=== PATIENT | male | born 1970 | race Caucasian/White ===

== ENCOUNTER → 2017-02-28 | Outpatient (CLI) | payer OTHER ==
[~2017-02-28] MED LIST: BND25 PO; EFFSR150 PO; EFFSR75 PO; IBUP-103 PO
[2017-02-28 13:04] LABS: BLOOD UREA NITROGEN 14 mg/dl (7-18); BUN/CREATININE RATIO 14.6 (10-20); CALCIUM 8.9 mg/dl (8.5-10.1); CARBON DIOXIDE 26 mmol/L (21-32); CHLORIDE 107 mmol/L (98-107); CREATININE 0.97 mg/dl (0.60-1.40); GLUCOSE 152 mg/dl (70-99); POTASSIUM 4.2 mmol/L (3.5-5.1); SODIUM 139 mmol/L (136-145)
[2017-02-28 13:05] LABS: CHOLESTEROL 174 mg/dl (0-200); CHOLESTEROL/HDL RATIO 4.7; HDL CHOLESTEROL 37 mg/dl; LDL CHOLESTEROL CALCULATED 98 mg/dl; TRIGLYCERIDES 194 mg/dl (0-150); VERY LOW DENSITY LIPOPROT CALC 39 mg/dl
[2017-02-28 13:07] LABS: ESTIMATED AVERAGE GLUCOSE 148 mg/dl; HA1C FLAG Normal (Normal)
== END | disposition home or self-care (01) ==
LOC: C.LABPVFM 08:30
PROVIDERS: ATTEND Nurse Practitioner
DX: R73.01 Impaired fasting glucose (principal); I10 Essential (primary) hypertension; Z13.220 Encounter for screening for lipoid disorders; E55.9 Vitamin D deficiency, unspecified

== ENCOUNTER → 2017-03-02 | Outpatient (CLI) | payer OTHER ==
[2017-03-02 15:12] LABS: LYME DISEASE AB IGG NEG (NEG)
[2017-03-02 15:13] LABS: LYME DISEASE AB IGM NEG (NEG)
== END | disposition home or self-care (01) ==
LOC: C.LABPVFM 09:30
PROVIDERS: ATTEND Nurse Practitioner
DX: R53.83 Other fatigue (principal); M25.50 Pain in unspecified joint

== ENCOUNTER → 2017-08-29 | Outpatient (CLI) | payer OTHER ==
[2017-08-29 13:01] LABS: BLOOD UREA NITROGEN 14 mg/dl (7-18); CALCIUM 9.4 mg/dl (8.5-10.1); CARBON DIOXIDE 25 mmol/L (21-32); CHLORIDE 105 mmol/L (98-107); CREATININE 0.99 mg/dl (0.60-1.40); ESTIMATED AVERAGE GLUCOSE 160 mg/dl; GLUCOSE 175 mg/dl (70-99); HA1C FLAG Normal (Normal); POTASSIUM 4.2 mmol/L (3.5-5.1); SODIUM 137 mmol/L (136-145)
== END | disposition home or self-care (01) ==
LOC: C.LABPVFM 09:01
PROVIDERS: ATTEND Nurse Practitioner
DX: I10 Essential (primary) hypertension (principal); E11.9 Type 2 diabetes mellitus without complications

== ENCOUNTER → 2017-09-13 | Outpatient (CLI) | payer OTHER ==
--- NOTE | 2017-09-13 10:10 | DIAGNOSTIC IMAGING REPORT ---
LEFT INGUINAL ULTRASOUND CLINICAL HISTORY: K40.90 Inguinal [id number] COMPARISON STUDY: No previous studies for comparison. FINDINGS: There is a fat-containing partially reducible reducible left inguinal hernia. IMPRESSION: Fat-containing left inguinal hernia. Electronically signed by: Nasir Brooks M.D. 09/13/2017 10:08 AM Dictated Date/Time: 09/13/2017 10:07 AM
== END | disposition home or self-care (01) ==
LOC: C.ULTR 09:41
PROVIDERS: ATTEND Nurse Practitioner
DX: K40.90 Unilateral inguinal hernia, without obstruction or gangrene, not specified as recurrent (principal)

== ENCOUNTER 2021-10-11 19:27 | Observation (INO) ==
[2021-10-11] MEDS ORDERED: dilTIAZem HCl 5 MG/ML 5 ML VIAL IV STA ×2 (19:45→20:20)
[2021-10-11] MEDS ORDERED: SODIUM CHLORIDE 0.9% 1000ML 1,000 ML IV SCH (19:45)
--- NOTE | 2021-10-11 19:53 | Emergency Department Note ---
Impression & Plan Atrial fibrillation with rapid ventricular response, Heart palpitations ED Provider Note NAME: BHARATH COLEMAN AGE: 50 SEX: M : 1970 ARRIVES VIA: Walk-In INFORMANT: Patient, ED PROVIDER(S): Parker Carrillo DO CHIEF COMPLAINT: Palpitations HPI: The patient is a 50-year-old male who presented to emergency department for an evaluation palpitations. The patient states he did not feel well ever since yesterday. He states he has been fatigued. He started noticing intermittent episodes of palpitations over the last 24 hours. His significant other states his pulse rate was very low at one point and it was in the 40s. It would then go up into the 150s. The patient has been seen for palpitations before but never carried any specific diagnosis. The patient was noticing nausea but has had no vomiting or diarrhea. He denies having any chest pain but does have some difficulty breathing especially with exertion. He denies having any lower extremity swelling. He has no headaches. The patient states he does have a history of diabetes. He states he is been compliant with his usual outpatient medications. He was not seen by his primary care physician prior to coming to the emergency department. He came directly to the emergency department because of the great symptoms. ROS: See above HPI for pertinent positives & negatives. A total of 10 systems reviewed and were otherwise negative. PAST MEDICAL HISTORY: See Below PAST SURGICAL HISTORY: See Below FAMILY HISTORY: See Below SOCIAL HISTORY: See Below HOME MEDICATIONS: See Below ALLERGIES: See Below VITALS: See Below PHYSICAL EXAMINATION: GENERAL: Patient is awake alert in no acute distress patient is resting comfortably and showing no signs of anxiety EYES: The conjunctivae are clear. The pupils are round and reactive. EARS, NOSE, MOUTH AND THROAT: The nose is without any evidence of any deformity. NECK: The neck is nontender and supple. RESPIRATORY: Normal respiratory effort is noted there is no evidence of wheezing rhonchi or rales CARDIOVASCULAR: Tachycardic and irregular heart sounds were noted to auscultation. No definite murmur was noted. GASTROINTESTINAL: The abdomen is soft. Abdomen is nontender. MUSCULOSKELETAL/EXTREMITIES: There is no evidence of gross deformity full range of motion is noted in the hips and shoulders. SKIN: There is no obvious evidence of any rash. There are no petechiae, pallor or cyanosis noted. NEUROLOGIC: Patient is awake alert and oriented x3 MEDICAL DECISION MAKING: The patient is a 50-year-old male who presented to the emergency department for an evaluation of palpitations. The patient was found to have atrial fibrillation with RVR upon arrival. He was treated with IV fluids and IV Cardizem in the emergency department. He started having ectopy but then ultimately went into sinus rhythm. I discussed the patient's laboratory and radiographic studies with him. He does have significant risk factors for CVA such as hypertension and diabetes. His age would not warrant anticoagulation but his other predisposing factors might. For this reason I would recommend further inpatient work-up especially given that this is the first episode of atrial fibrillation this patient has had. I discussed this plan with the patient he was agreeable. I discussed this case with the on-call [facility]. They will evaluate the patient in the emergency department. Triage Nursing notes reviewed. Prior medical records reviewed Vital Signs: reviewed and remarkable for no significant abnormalities Differential diagnosis: Premature contractions, electrolyte abnormality, cardiac dysrhythmia, thyroid dysfunction, pulmonary embolism, infection, gastrointestinal, as well as other pathologies. ER treatment provided: See below Diagnostics interpreted by me: ECG: Narrow complex tachycardia 159 bpm. There was some irregularity noted to the underlying rhythm. There is no ectopy. There is no acute ST segment abnormalities noted. This could represent SVT versus rapid atrial fibrillation. This was compared to a tracing from January 012020. Sinus rhythm has been r eplaced with narrow complex tachycardia. A repeat EKG was obtained after treatment with Cardizem. His EKG appears to be consistent with sinus rhythm at 79 bpm. Bigeminy was noted. The ectopy does n ot appear to be ventricular in origin however it was different from the upper [place] QRS complex. This represents resolved rapid atrial fibrillation compared to the earlier tracing. Cardiac Monitoring: An order was placed for continuous cardiac monitoring. The monitor shows a rate of 60 bpm with sinus rhythm. Laboratory studies: As stated above and show below. Imaging studies: See below Consultation(s): I discussed this case with Dr. Mroris who is on-call for the [facility]. They've agreed to evaluate the patient in the emergency department for further management and disposition. ED COURSE: Procedures: Multiple attempts at modified Valsalva were done. The patient's heart rate did become variable and appears to be more consistent with rapid atrial fibrillation. PDMP:reviewed and no issues Critical Care: I have personally spent greater than 45 minutes of critical care time in the di rect management of this patient. This includes bedside care, interpretation of diagnostic studies, and testing, discussion with consultants, patient, and family members, and other required patient management activities. This 45 minutes is in excess of all separately billable procedures. Past Med/Surg History Medical History Diabetes NIDDM Fatigue GERD (gastroesophageal reflux disease) CONTROLLED Hiatal hernia Inguinal hernia Mild concussion 12/27 Multiple rib fractures 12/27 Obesity Palpitations Surgical History History of arthroscopy RT/LEFT KNEE History of esophagogastroduodenoscopy (EGD) Hx of vasectomy Family History Mother Family history of diabetes mellitus Grandmother Family history of diabetes mellitus Denies family history of Ovarian cancer Prostate cancer Myocardial infarction Breast cancer Colorectal cancer Social History Smoking Status: Current every day smoker Tobacco Type: Cigarettes Cigarettes Per Day: 20; Second Hand Exposure: Yes; Hx Alcohol Use: Yes Alcohol type: beer Hx Substance Use: No Preferred Language: Italian Communication Ability: Effective Gill Box Tender Required: No Beliefs That Will Affect Care: None marital status: Current Living Situation: Family current occupational status: employed Feels Safe at Home: Yes Dental Care, Regularly: No Seatbelt Use: sometimes Sunscreen Use: Yes Assistive Devices: Glasses Allergies Allergies Allergy/AdvReac Type Severity Reaction Status Date / Time Sulfa (Sulfonamide Allergy Intermediate Hives Verified 10/11/21 20:00 Antibiotics) aspirin AdvReac Intermediate EPITAXIS Verified 10/11/21 20:00 Home Meds Home Medications Medication Instructions Recorded Confirmed blood sugar diagnostic (OneTouch #10 ea 06/05/19 09/10/21 Ultra Blue Test Strip) cholecalciferol (vitamin D3) 25 2,000 units PO DAILY tab 06/05/19 10/11/21 mcg (1,000 unit) tablet (Vitamin D3) ketoconazole 2 % topical cream 1 appln TOPICAL BID PRN #1 gm 06/05/19 10/11/21 vitamin A-vitamin C-vit E-min 2 tab PO DAILY tab 02/19/21 10/11/21 tablet clonazepam 0.5 mg tablet 0.5 mg PO BID PRN 10/11/21 10/11/21 methocarbamol 750 mg tablet 375 - 750 mg PO TID PRN 10/11/21 10/11/21 sildenafil 100 mg tablet 50 mg PO DAILY PRN 10/11/21 10/11/21 trazodone 50 mg tablet 50 mg PO HS 10/11/21 10/11/21 Previous Rx's Medication Instructions Recorded albuterol sulfate 90 mcg/actuation 2 puffs INH .COMPLEX PRN #18 gm 01/08/20 aerosol inhaler (Ventolin HFA) glimepiride 4 mg tablet 4 mg PO DAILY #90 tab 09/14/20 metformin 500 mg tablet,extended 1,000 mg PO QAM #180 tab 09/14/20 release 24 hr lidocaine 5 % topical patch 1 patch TOPICAL DAILY PRN #30 ea 01/12/21 lisinopril 10 mg tablet 10 mg PO DAILY #90 tab 01/21/21 venlafaxine 150 mg 150 mg PO QAM #90 cap 07/29/21 capsule,extended release 24 hr venlafaxine 75 mg capsule,extended 75 mg PO QAM #90 cap 07/29/21 release 24 hr Results & Data (ED) Vital Signs Vital Signs - 24 hr 10/11/21 19:31 10/11/21 19:55 10/11/21 19:58 Temperature 36.9 C Temperature Source Temporal Artery Scan Pulse Rate 152 H 157 H 153 H Pulse Rate from SpO2 Sensor Respiratory Rate 16 22 20 Blood Pressure 133/76 124/79 Blood Pressure Mean 95 94 Blood Pressure Position Sitting Pulse Oximetry 96 98 98 Oxygen Delivery Method Room Air Room Air Room Air Sepsis Recent Fever Within 48 Hours No Sepsis New/Unexplained Change in Mental Status No Sepsis Action Taken by Nursing No Action Required 10/11/21 20:00 10/11/21 20:01 10/11/21 20:05 Temperature Temperature Source Pulse Rate 124 H 129 H Pulse Rate from SpO2 Sensor Respiratory Rate 21 21 Blood Pressure 106/73 Blood Pressure Mean 84 Blood Pressure Position Pulse Oximetry 97 96 96 Oxygen Delivery Method Room Air Room Air Room Air Sepsis Recent Fever Within 48 Hours Sepsis New/Unexplained Change in Mental Status Sepsis Action Taken by Nursing 10/11/21 20:10 10/11/21 20:15 10/11/21 20:20 Temperature Temperature Source Pulse Rate 135 H 118 H 112 H Pulse Rate from SpO2 Sensor Respiratory Rate 17 20 20 Blood Pressure 113/81 109/82 Blood Pressure Mean 91 91 Blood Pressure Position Pulse Oximetry 97 98 98 Oxygen Delivery Method Room Air Room Air Room Air Sepsis Recent Fever Within 48 Hours Sepsis New/Unexplained Change in Mental Status Sepsis Action Taken by Nursing 10/11/21 20:25 10/11/21 20:30 10/11/21 20:34 Temperature Temperature Source Pulse Rate 118 H 108 H 68 Pulse Rate from SpO2 Sensor Respiratory Rate 17 20 18 Blood Pressure 119/84 Blood Pressure Mean 95 Blood Pressure Position Pulse Oximetry 98 98 98 Oxygen Delivery Method Room Air Room Air Room Air Sepsis Recent Fever Within 48 Hours Sepsis New/Unexplained Change in Mental Status Sepsis Action Taken by Nursing 10/11/21 20:36 10/11/21 20:40 10/11/21 20:45 Temperature Temperature Source Pulse Rate 150 H 75 64 Pulse Rate from SpO2 Sensor Respiratory Rate 20 18 21 Blood Pressure 132/68 Blood Pressure Mean 89 Blood Pressure Position Pulse Oximetry 98 98 98 Oxygen Delivery Method Room Air Room Air Room Air Sepsis Recent Fever Within 48 Hours Sepsis New/Unexplained Change in Mental Status Sepsis Action Taken by Nursing 10/11/21 20:50 10/11/21 21:00 10/11/21 21:10 Temperature Temperature Source Pulse Rate 65 68 68 Pulse Rate from SpO2 Sensor 64 Respiratory Rate 14 17 14 Blood Pressure 111/84 134/78 126/83 Blood Pressure Mean 93 96 97 Blood Pressure Position Pulse Oximetry 99 96 97 Oxygen Delivery Method Room Air Room Air Sepsis Recent Fever Within 48 Hours Sepsis New/Unexplained Change in Mental Status Sepsis Action Taken by Skilled Nursing Medications Current Medication List: was personally reviewed by me Laboratory Data Attestation: I reviewed the patient's lab results. Result diagrams: 10/11/21 19:50 10/11/21 19:50 Lab Results 10/11/21 10/11/21 10/11/21 Range/Units 19:50 19:50 19:50 WBC 16.31 H (4.8-10.8) K/uL RBC 5.40 (4.7-6.1) M/uL Hgb 16.5 (14.0-18.0) g/dL Hct 47.3 (42-52) % MCV 87.6 (80-100) fL MCH 30.6 (25-34) pg MCHC 34.9 (32-36) g/dL RDW Std Deviation 40.3 (36.4-46.3) fL RDW Coeff of Jenn 12.6 (11.5-14.5) % Plt Count 216 (130-400) K/uL MPV 11.3 H (7.4-10.4) fL Immature Gran % (Auto) 0.2 % Neut % (Auto) 62.1 % Lymph % (Auto) 30.0 % [place] % (Auto) 6.7 % Eos % (Auto) 0.9 % Baso % (Auto) 0.1 % Neut # (Auto) 10.14 H (1.4-6.5) K/uL Lymph # (Auto) 4.89 H (1.2-3.4) K/uL [place] # (Auto) 1.09 H (0.11-0.59) K/uL Eos # (Auto) 0.14 (0-0.5) K/uL Baso # (Auto) 0.02 (0-0.2) K/uL Immature Gran # (Auto) 0.03 H (0.00-0.02) K/uL PT 10.4 (9.0-12.0) Seconds INR 1.0 (0.9-1.1) APTT 28.2 (21.0-31.0) Seconds PTT Ratio 1.1 Sodium 139 (136-145) mmol/L Potassium 3.6 (3.5-5.1) mmol/L Chloride 104 (98-107) mmol/L Carbon Dioxide 28 (21-32) mmol/L Anion Gap 7.0 (3-11) BUN 18 (7-18) mg/dl Creatinine 1.07 (0.6-1.4) mg/dl Est Cr Clr Drug Dosing 112.1 ml/min Est GFR ( Amer) 93.3 ml/min Est GFR (Non-Af Amer) 80.5 ml/min BUN/Creatinine Ratio 16.6 (10-20) Glucose 119 H (70-99) mg/dl Calcium 9.7 (8.5-10.1) mg/dl Magnesium 1.9 (1.8-2.4) mg/dl Total Bilirubin 0.2 (0.2-1) mg/dl AST 15 (15-37) U/L ALT 39 (12-78) Alkaline Phosphatase 48 (45-117) U/L Troponin I < 0.015 (0-0.045) ng/ml Total Protein 7.8 (6.4-8.2) gm/dl Albumin 4.1 (3.4-5.0) gm/dl Globulin 3.7 (2.5-4.0) gm/dl Albumin/Globulin Ratio 1.1 (0.9-2) TSH 2.830 (0.300-4.500) uIu/ml Urine Color Urine Appearance (Clear) Urine pH (4.5-7.5) Ur Specific [place] (1.000-1.030) Urine Protein (Negative) Urine Glucose (UA) (Negative) Urine Ketones (Negative) Urine Blood (Negative) Urine Nitrite (Negative) Urine Bilirubin (Negative) Urine Urobilinogen (Negative) Ur Leukocyte Esterase (Negative) SARS-CoV-2, RNA, NAAT (NEGATIVE) 10/11/21 10/11/21 Range/Units 21:00 Unknown WBC (4.8-10.8) K/uL RBC (4.7-6.1) M/uL Hgb (14.0-18.0) g/dL Hct (42-52) % MCV (80-100) fL MCH (25-34) pg MCHC (32-36) g/dL RDW Std Deviation (36.4-46.3) fL RDW Coeff of Jenn (11.5-14.5) % Plt Count (130-400) K/uL MPV (7.4-10.4) fL Immature Gran % (Auto) % Neut % (Auto) % Lymph % (Auto) % [place] % (Auto) % Eos % (Auto) % Baso % (Auto) % Neut # (Auto) (1.4-6.5) K/uL Lymph # (Auto) (1.2-3.4) K/uL [place] # (Auto) (0.11-0.59) K/uL Eos # (Auto) (0-0.5) K/uL Baso # (Auto) (0-0.2) K/uL Immature Gran # (Auto) (0.00-0.02) K/uL PT (9.0-12.0) Seconds INR (0.9-1.1) APTT (21.0-31.0) Seconds PTT Ratio Sodium (136-145) mmol/L Potassium (3.5-5.1) mmol/L Chloride (98-107) mmol/L Carbon Dioxide (21-32) mmol/L Anion Gap (3-11) BUN (7-18) mg/dl Creatinine (0.6-1.4) mg/dl Est Cr Clr Drug Dosing ml/min Est GFR ( Amer) ml/min Est GFR (Non-Af Amer) ml/min BUN/Creatinine Ratio (10-20) Glucose (70-99) mg/dl Calcium (8.5-10.1) mg/dl Magnesium (1.8-2.4) mg/dl Total Bilirubin (0.2-1) mg/dl AST (15-37) U/L ALT (12-78) Alkaline Phosphatase (45-117) U/L Troponin I (0-0.045) ng/ml Total Protein (6.4-8.2) gm/dl Albumin (3.4-5.0) gm/dl Globulin (2.5-4.0) gm/dl Albumin/Globulin Ratio (0.9-2) TSH (0.300-4.500) uIu/ml Urine Color Yellow Urine Appearance Clear (Clear) Urine pH 6.5 (4.5-7.5) Ur Specific [place] 1.011 (1.000-1.030) Urine Protein Negative (Negative) Urine Glucose (UA) Negative (Negative) Urine Ketones Negative (Negative) Urine Blood Negative (Negative) Urine Nitrite Negative (Negative) Urine Bilirubin Negative (Negative) Urine Urobilinogen Negative (Negative) Ur Leukocyte Esterase Negative (Negative) SARS-CoV-2, RNA, NAAT NEGATIVE (NEGATIVE) Administered Medications Discontinued Medications Diltiazem HCl (Diltiazem Hcl 5 Mg/Ml 5 Ml Vial) 20 mg IV NOW STA Stop: 10/11/21 19:46 Last Admin: 10/11/21 19:54 Dose: 20 mg Documented by: [id number] Cosigned by: [id number] Diltiazem HCl (Diltiazem Hcl 5 Mg/Ml 5 Ml Vial) 10 mg IV NOW STA Stop: 10/11/21 20:21 Last Admin: 10/11/21 20:23 Dose: 10 mg Documented by: [id number] Cosigned by: [id number] Sodium Chloride (Nss 1000ml) 1,000 mls @ 999 mls/hr IV .Q1H1M KATY Stop: 10/11/21 20:45 Last Infusion: 10/11/21 20:35 Dose: 0 mls/hr Documented by: [id number] Admin: 10/11/21 19:56 Dose: 999 mls/hr Documented by: [id number] Imaging Data Radiologist's Impression: Chest X-Ray 10/11/21 19:45 XR chest 1V portable HISTORY: weakness COMPARISON: Chest 07/27/2021. Chest x-ray 01/01/2021. FINDINGS: The lungs are clear. Cardiac silhouette is normal in size. No pleural effusions. No pneumothorax. IMPRESSION: No acute process. ACT 112: Negative or not required by law. Electronically signed by: Barry Pope M.D. 10/11/2021 8:20 PM Discharge Plan Visit Data Chief Complaint: Arrhythmia/Palpitations Stated Complaint: CHEST AND NECK TIGHTNESS, PALPITATION, ED Provider: Parker Carrillo Discharge Problem: Atrial fibrillation with rapid ventricular response, Heart palpitations Patient Disposition: Being Evaluated by Hospitalist Forms Stand Alone Forms: My [facility] Prescriptions Prescriptions: No Action glimepiride 4 mg tablet 4 mg PO DAILY Qty: 90 RF: 3 metformin 500 mg tablet extended release 24 hr 1,000 mg PO QAM Qty: 180 RF: 3 lisinopril 10 mg tablet 10 mg PO DAILY Qty: 90 RF: 3 venlafaxine 75 mg capsule,extended release 24hr 75 mg PO QAM Qty: 90 RF: 3 venlafaxine 150 mg capsule,extended release 24hr 150 mg PO QAM Qty: 90 RF: 3 (DME) OneTouch Ultra Blue Test Strip strip See Dose Instructions .ROUTE .MEDSUPPLY Qty: 10 RF: 0 ketoconazole 2 % cream 1 appln topical BID PRN (Reason: rash) Qty: 1 RF: 0 cholecalciferol (vitamin D3) [Vitamin D3] 1,000 unit (25 mcg) tablet 2,000 units PO DAILY RF: 0 albuterol sulfate [Ventolin HFA] 90 mcg/actuation HFA aerosol inhaler 2 puffs INH .COMPLEX PRN (Reason: shortness of breath or wheezing) Qty: 18 RF: 1 lidocaine 5 % adhesive patch,medicated 1 patch topical DAILY PRN (Reason: pain, severe) Qty: 30 RF: 5 vitamin A-vitamin C-vit E-min Tablet 2 tab PO DAILY RF: 0 trazodone 50 mg tablet 50 mg PO HS RF: 0 sildenafil 100 mg tablet 50 mg PO DAILY PRN (Reason: sexual activity) RF: 0 methocarbamol 750 mg tablet 375 - 750 mg PO TID PRN (Reason: muscle pain) RF: 0 clonazepam 0.5 mg tablet 0.5 mg PO BID PRN (Reason: Anxiety) RF: 0 Referrals Referrals: Leandra Goncalves CRNP [Primary Care Provider] -
[2021-10-11 20:02] LABS: Basophils # (auto) 0.02 K/uL (0-0.2); Basophils % (auto) 0.1 %; Eosinophils # (auto) 0.14 K/uL (0-0.5); Eosinophils % (auto) 0.9 %; Hematocrit (blood only) 47.3 % (42-52); Hemoglobin 16.5 g/dL (14.0-18.0); Immature Granulocytes # (auto) 0.03 K/uL (0.00-0.02); Immature Granulocytes % (auto) 0.2 %; Lymphocytes # (auto) 4.89 K/uL (1.2-3.4); Mean Corpuscular Hemoglobin 30.6 pg (25-34); Mean Corpuscular Hgb Conc 34.9 g/dL (32-36); Mean Corpuscular Volume 87.6 fL (80-100); Mean Platelet Volume 11.3 fL (7.4-10.4); Monocytes # (auto) 1.09 K/uL (0.11-0.59); Monocytes % (auto) 6.7 %; Neutrophils # (auto) 10.14 K/uL (1.4-6.5); Neutrophils % (auto) 62.1 %; Platelet Count 216 K/uL (130-400); RDW Coefficient of Variation 12.6 % (11.5-14.5); RDW Standard Deviation 40.3 fL (36.4-46.3); White Blood Count 16.31 K/uL (4.8-10.8)
[2021-10-11 20:14] LABS: Partial Thromboplastin Ratio 1.1; Partial Thromboplastin Time 28.2 Seconds (21.0-31.0); Prothrombin Time 10.4 Seconds (9.0-12.0)
[2021-10-11 20:20] LABS: Alanine Aminotransferase 39 (12-78); Albumin Level 4.1 gm/dl (3.4-5.0); Aspartate Aminotransferase 15 U/L (15-37); BUN Creatinine Ratio 16.6 (10-20); Blood Urea Nitrogen 18 mg/dl (7-18); Calcium 9.7 mg/dl (8.5-10.1); Carbon Dioxide 28 mmol/L (21-32); Chloride 104 mmol/L (98-107); Creatinine Clr Calc Pharmacy 112.1 ml/min; Est GFR (African American) 93.3 ml/min; Est GFR (Non-African American) 80.5 ml/min; Glucose 119 mg/dl (70-99); Magnesium 1.9 mg/dl (1.8-2.4); Potassium 3.6 mmol/L (3.5-5.1); Sodium 139 mmol/L (136-145)
--- NOTE | 2021-10-11 20:22 | XRay Report ---
XR chest 1V portable HISTORY: weakness COMPARISON: Chest 07/27/2021. Chest x-ray 01/01/2021. FINDINGS: The lungs are clear. Cardiac silhouette is normal in size. No pleural effusions. No pneumot horax. IMPRESSION: No acute process. ACT 112: Negative or not required by law. Electronically signed by: Barry Pope M.D. 10/11/2021 8:20 PM
[2021-10-11 20:33] LABS: Albumin Globulin Ratio 1.1 (0.9-2); Alkaline Phosphatase 48 U/L (45-117); Bilirubin,Total 0.2 mg/dl (0.2-1); Globulin 3.7 gm/dl (2.5-4.0); Total Protein 7.8 gm/dl (6.4-8.2); Troponin I < 0.015 ng/ml (0-0.045)
[2021-10-11 21:22] LABS: Appearance Urine Clear (Clear); Bilirubin Urine Negative (Negative); Blood Urine Negative (Negative); Color Urine Yellow; Glucose Urine UA Negative (Negative); Ketones Urine Negative (Negative); Leukocyte Esterase Urine Negative (Negative); Nitrite Urine Negative (Negative); Protein Urine Negative (Negative); Specific Gravity Urine 1.011 (1.000-1.030); Urobilinogen Urine Negative (Negative); pH Urine 6.5 (4.5-7.5)
--- NOTE | 2021-10-11 21:56 | History & Physical Report ---
Date of Service October 11, 2021 Assessment & Plan (1) Atrial fibrillation with rapid ventricular response: Plan: Generally healthy 50 yo M with HTN, DM2 brought to ER for palpitations, found to be in Afib with RVR, admitted for observation and workup of Afib. Atrial Fibrillation - Converted with 30 mg Diltiazem IV without drip - started on metoprolol tartrate 25 mg BID for rate control - started on eliquis for anticoagulation [ [id number] = 2, HAS-BLED 1] - TTE in AM - telemetry monitoring - electrolyte optimization with K >4, Mag >2 - daily EKGs - troponin negative - TSH wnl, FT4 pending Leukocytosis - WBC elevation to 13k, neutrophil and lymphocyte predominance - normotensive, normothermic, no longer tachycardic - no clear etiology/sign of infection. Not on steroids - perhaps stress response as palpitations have been ongoing throughout the day? - trend CBC - peripheral smear - covid negative HTN - cont lisinopril DM2 - hold oral diabetic medications - SSI Depression + Anxiety - cont trazodone, venlafaxine per home orders - takes clonazepam 0.5 mg PO BID Tobacco Use - not interested in nicotine patch - denies hx asthma/COPD/inhaler use DVT ppx: eliquis FEN/GI: heart healthy diet Bowel regimen: prn miralax Code Status: full code Dispo: med/tele (2) Diabetes: (3) Hypertension: (4) Depression with anxiety: (5) Leukocytosis: History of Present Illness Primary Care Provider: DELANO Osei 50 yo M with PMH DM2, HTN, Depression in ER for complaint of persistent palpitations. States that he had a traumatic fall earlier this year that required admission and transfer to [facility]. Since then, has been having on and off episodes of palpitations with associated chest tightness. Denies any SOB/GRESHAM. No syncope, lightheadedness,dizziness, blurry vision. No cardiac hx. Smokes 1 ppdx 30years. Denies alcohol, IVDU, vaping, street drugs. ER Course significant for EKG/Tele monitoring showing Afib with RVR. converted into sinus rhythm and rate controlled after receiving total of 30 mg in 2 boluses of diltiazem. Allergies Allergy/AdvReac Type Severity Reaction Status Date / Time Sulfa (Sulfonamide Allergy Intermediate Hives Verified 10/11/21 20:00 Antibiotics) Home Medications Medication Instructions Recorded Confirmed Type blood sugar diagnostic (OneTouch #10 ea 06/05/19 09/10/21 History Ultra Blue Test Strip) cholecalciferol (vitamin D3) 25 2,000 units PO DAILY tab 06/05/19 10/11/21 History mcg (1,000 unit) tablet (Vitamin D3) ketoconazole 2 % topical cream 1 appln TOPICAL BID PRN #1 gm 06/05/19 10/11/21 History albuterol sulfate 90 mcg/actuation 2 puffs INH .COMPLEX PRN #18 gm 01/08/20 10/11/21 Rx aerosol inhaler (Ventolin HFA) glimepiride 4 mg tablet 4 mg PO DAILY #90 tab 09/14/20 10/11/21 Rx metformin 500 mg tablet,extended 1,000 mg PO QAM #180 tab 09/14/20 10/11/21 Rx release 24 hr lidocaine 5 % topical patch 1 patch TOPICAL DAILY PRN #30 ea 01/12/21 10/11/21 Rx lisinopril 10 mg tablet 10 mg PO DAILY #90 tab 01/21/21 10/11/21 Rx vitamin A-vitamin C-vit E-min 2 tab PO DAILY tab 02/19/21 10/11/21 History tablet venlafaxine 150 mg 150 mg PO QAM #90 cap 07/29/21 10/11/21 Rx capsule,extended release 24 hr venlafaxine 75 mg capsule,extended 75 mg PO QAM #90 cap 07/29/21 10/11/21 Rx release 24 hr clonazepam 0.5 mg tablet 0.5 mg PO BID PRN 10/11/21 10/11/21 History methocarbamol 750 mg tablet 375 - 750 mg PO TID PRN 10/11/21 10/11/21 History sildenafil 100 mg tablet 50 mg PO DAILY PRN 10/11/21 10/11/21 History trazodone 50 mg tablet 50 mg PO HS 10/11/21 10/11/21 History Past Med/Surg History Medical History Diabetes NIDDM Fatigue GERD (gastroesophageal reflux disease) CONTROLLED Hiatal hernia Inguinal hernia Mild concussion 12/27 Multiple rib fractures 12/27 Obesity Palpitations Surgical History History of arthroscopy RT/LEFT KNEE History of esophagogastroduodenoscopy (EGD) Hx of vasectomy Family History Mother Family history of diabetes mellitus Grandmother Family history of diabetes mellitus Denies family history of Ovarian cancer Prostate cancer Myocardial infarction Breast cancer Colorectal cancer Social History Smoking Status: Current every day smoker Tobacco Type: Cigarettes Cigarettes Per Day: 20; Second Hand Exposure: Yes; Hx Alcohol Use: Yes Alcohol type: beer Hx Substance Use: No Preferred Language: Gambian Communication Ability: Effective Software Sales 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 Required: No Beliefs That Will Affect Care: None marital status: Current Living Situation: Family current occupational status: employed Feels Safe at Home: Yes Safety Concerns: Feels Safe At This Time Dental Care, Regularly: No Seatbelt Use: sometimes Sunscreen Use: Yes Assistive Devices: Glasses Review of Systems Constitutional: no fever, no chills, no body aches and no fatigue Respiratory: no cough and no dyspnea Cardiovascular: + palpitations; no chest pain, no chest pain with activity, no radiating jaw, neck or arm pain, no dyspnea, no dyspnea on exertion, no lightheadedness, no edema and no calf pain Gastrointestinal: no abdominal pain, no nausea, no vomiting, no constipation and no diarrhea/loose stools Neurologic: no tingling, no numbness, no dizziness and no confusion Physical Exam Physical Exam: Constitutional: obese, in no apparent distress, sitting comfortably in bed. Eyes: EOMI, pupils equal and reactive bilaterally, no scleral icterus Cardiac: RRR, no murmurs, gallops or rubs. Normal S1, S2 Pulm: CTA BL, mild inspiratory wheezing on right side,no rhonchi, crackles or rubs, moving air well throughout both lungs Abd: soft, nontender, nondistended, normal bowel sounds, no rebound or guarding Extremities: 2+ peripheral pulses, no edema Neuro: no focal deficits, moving all 4 limbs, A&Ox3 Results & Data Results & Data ([facility]) Vital Signs (Past 12 Hours) Vital Signs Temp Pulse Resp BP Pulse Ox 10/11/21 21:50 63 15 97 10/11/21 21:44 67 15 115/73 97 10/11/21 21:41 76 22 98/82 L 95 10/11/21 21:40 71 21 97 10/11/21 21:30 66 18 119/81 96 10/11/21 21:20 67 13 136/85 94 10/11/21 21:10 68 14 126/83 97 10/11/21 21:00 68 17 134/78 96 10/11/21 20:50 65 14 111/84 99 10/11/21 20:45 64 21 98 10/11/21 20:40 75 18 132/68 98 10/11/21 20:36 150 H 20 98 10/11/21 20:34 68 18 98 10/11/21 20:30 108 H 20 119/84 98 10/11/21 20:25 118 H 17 98 10/11/21 20:20 112 H 20 109/82 98 10/11/21 20:15 118 H 20 98 10/11/21 20:10 135 H 17 113/81 97 10/11/21 20:05 129 H 21 96 10/11/21 20:01 96 10/11/21 20:00 124 H 21 106/73 97 10/11/21 19:58 153 H 20 98 10/11/21 19:55 157 H 22 124/79 98 10/11/21 19:31 36.9 C 152 H 16 133/76 96 Laboratory Results Laboratory Results WBC 16.31 K/uL (4.8-10.8) H 10/11/21 19:50 RBC 5.40 M/uL (4.7-6.1) 10/11/21 19:50 Hgb 16.5 g/dL (14.0-18.0) 10/11/21 19:50 Hct 47.3 % (42-52) 10/11/21 19:50 MCV 87.6 fL (80-100) 10/11/21 19:50 MCH 30.6 pg (25-34) 10/11/21 19:50 MCHC 34.9 g/dL (32-36) 10/11/21 19:50 RDW Std Deviation 40.3 fL (36.4-46.3) 10/11/21 19:50 RDW Coeff of Jenn 12.6 % (11.5-14.5) 10/11/21 19:50 Plt Count 216 K/uL (130-400) 10/11/21 19:50 MPV 11.3 fL (7.4-10.4) H 10/11/21 19:50 Immature Gran % (Auto) 0.2 % 10/11/21 19:50 Neut % (Auto) 62.1 % 10/11/21 19:50 Lymph % (Auto) 30.0 % 10/11/21 19:50 Appling % (Auto) 6.7 % 10/11/21 19:50 Eos % (Auto) 0.9 % 10/11/21 19:50 Baso % (Auto) 0.1 % 10/11/21 19:50 Neut # (Auto) 10.14 K/uL (1.4-6.5) H 10/11/21 19:50 Lymph # (Auto) 4.89 K/uL (1.2-3.4) H 10/11/21 19:50 Appling # (Auto) 1.09 K/uL (0.11-0.59) H 10/11/21 19:50 Eos # (Auto) 0.14 K/uL (0-0.5) 10/11/21 19:50 Baso # (Auto) 0.02 K/uL (0-0.2) 10/11/21 19:50 Immature Gran # (Auto) 0.03 K/uL (0.00-0.02) H 10/11/21 19:50 PT 10.4 Seconds (9.0-12.0) 10/11/21 19:50 INR 1.0 (0.9-1.1) 10/11/21 19:50 APTT 28.2 Seconds (21.0-31.0) 10/11/21 19:50 PTT Ratio 1.1 10/11/21 19:50 Sodium 139 mmol/L (136-145) 10/11/21 19:50 Potassium 3.6 mmol/L (3.5-5.1) 10/11/21 19:50 Chloride 104 mmol/L (98-107) 10/11/21 19:50 Carbon Dioxide 28 mmol/L (21-32) 10/11/21 19:50 Anion Gap 7.0 (3-11) 10/11/21 19:50 BUN 18 mg/dl (7-18) 10/11/21 19:50 Creatinine 1.07 mg/dl (0.6-1.4) 10/11/21 19:50 Est Cr Clr Drug Dosing 112.1 ml/min 10/11/21 19:50 Est GFR ( Amer) 93.3 ml/min 10/11/21 19:50 Est GFR (Non-Af Amer) 80.5 ml/min 10/11/21 19:50 BUN/Creatinine Ratio 16.6 (10-20) 10/11/21 19:50 Glucose 119 mg/dl (70-99) H 10/11/21 19:50 Calcium 9.7 mg/dl (8.5-10.1) 10/11/21 19:50 Magnesium 1.9 mg/dl (1.8-2.4) 10/11/21 19:50 Total Bilirubin 0.2 mg/dl (0.2-1) 10/11/21 19:50 AST 15 U/L (15-37) 10/11/21 19:50 ALT 39 (12-78) 10/11/21 19:50 Alkaline Phosphatase 48 U/L (45-117) 10/11/21 19:50 Troponin I < 0.015 ng/ml (0-0.045) 10/11/21 19:50 Total Protein 7.8 gm/dl (6.4-8.2) 10/11/21 19:50 Albumin 4.1 gm/dl (3.4-5.0) 10/11/21 19:50 Globulin 3.7 gm/dl (2.5-4.0) 10/11/21 19:50 Albumin/Globulin Ratio 1.1 (0.9-2) 10/11/21 19:50 TSH 2.830 uIu/ml (0.300-4.500) 10/11/21 19:50 Urine Color Yellow 10/11/21 21:00 Urine Appearance Clear (Clear) 10/11/21 21:00 Urine pH 6.5 (4.5-7.5) 10/11/21 21:00 Ur Specific Lyman 1.011 (1.000-1.030) 10/11/21 21:00 Urine Protein Negative (Negative) 10/11/21 21:00 Urine Glucose (UA) Negative (Negative) 10/11/21 21:00 Urine Ketones Negative (Negative) 10/11/21 21:00 Urine Blood Negative (Negative) 10/11/21 21:00 Urine Nitrite Negative (Negative) 10/11/21 21:00 Urine Bilirubin Negative (Negative) 10/11/21 21:00 Urine Urobilinogen Negative (Negative) 10/11/21 21:00 Ur Leukocyte Esterase Negative (Negative) 10/11/21 21:00 SARS-CoV-2, RNA, NAAT NEGATIVE (NEGATIVE) 10/11/21 Unknown Impressions Chest X-Ray 10/11/21 19:45 XR chest 1V portable HISTORY: weakness COMPARISON: Chest 07/27/2021. Chest x-ray 01/01/2021. FINDINGS: The lungs are clear. Cardiac silhouette is normal in size. No pleural effusions. No pneumothorax. IMPRESSION: No acute process. ACT 112: Negative or not required by law. Electronically signed by: Barry Pope M.D. 10/11/2021 8:20 PM Supervising Physician Co-Signing Physician Notes Patient seen and examined, chart reviewed, case discussed with Dr. Hernandez and I agree with her assessment and plan as documented above. In brief, patient is a 50yo male with history of HTN and DM presenting with palpitations, mild associated SOB. Reports erratic pulse at home ranging from 40's to 150's. Found to be in AF with RVR, rates in 150's upon arrival. No history of prior. Patient administered NSS x 1L, Diltiazem 20mg IV + 10mG IV and converted to NSR. Patient had a significant fall in December 27, 2020 - fell 8 feet from a ladder and landed on the ladder striking his left shoulder. He had a shoulder dislocation, fractured 8 ribs as well as his sternum. He was transferred to [facility] for trauma management. Patient was seen by PCP in February 2021 with complaint of palpitations Unremarkable exam. Patient is in NSR. No evidence of failure Labs and images reviewed Assessment/Plan New onset atrial fibrillation. Electrolytes WNL. Troponin negative. TSH/FT4 WNL. -Telemetry -2D echo -Initiate Metoprolol, Eliquis (CHADS-2 vasc=2. Patient does not have elevated bleeding risk) -Leukocytosis with elevated lymphocytes - ongoing - check peripheral smear -Remainder as above Resident Activity Tracking Resident Involvement: Resident Care Provided Care Provided: Adult [facility] Medicine
[2021-10-11 23:46] LABS: T4 Free Thyroxine 0.85 ng/dl (0.8-1.6)
[2021-10-11] MEDS ORDERED: ONDANSETRON INJ 2 MG/ML 2 ML VIAL IV PRN (23:57)
[2021-10-11] MEDS ORDERED: NITROGLYCERIN SL 0.4 MG/TAB TAB SL PRN (23:57)
[2021-10-11] MEDS ORDERED: ACETAMINOPHEN 325 MG TAB PO PRN (23:57)
--- NOTE | 2021-10-12 01:00 | Billing Data ---
Date of Service October 11, 2021 Coding Level of Care Code INT OBSERVATION CARE 50M LVL 2
[2021-10-12 06:18] LABS: Basophils # (auto) 0.01 K/uL (0-0.2); Basophils % (auto) 0.1 %; Eosinophils # (auto) 0.22 K/uL (0-0.5); Eosinophils % (auto) 1.8 %; Hematocrit (blood only) 44.5 % (42-52); Hemoglobin 14.9 g/dL (14.0-18.0); Immature Granulocytes # (auto) 0.01 K/uL (0.00-0.02); Immature Granulocytes % (auto) 0.1 %; Lymphocytes # (auto) 3.53 K/uL (1.2-3.4); Lymphocytes % (auto) 29.7 %; Mean Corpuscular Hemoglobin 29.8 pg (25-34); Mean Corpuscular Hgb Conc 33.5 g/dL (32-36); Mean Platelet Volume 11.7 fL (7.4-10.4); Monocytes # (auto) 0.98 K/uL (0.11-0.59); Monocytes % (auto) 8.2 %; Neutrophils # (auto) 7.15 K/uL (1.4-6.5); Neutrophils % (auto) 60.1 %; Platelet Count 216 K/uL (130-400); RDW Coefficient of Variation 12.8 % (11.5-14.5); RDW Standard Deviation 41.7 fL (36.4-46.3)
[2021-10-12 06:49] LABS: BUN Creatinine Ratio 17.6 (10-20); Calcium 9.1 mg/dl (8.5-10.1); Creatinine Clr Calc Pharmacy 123.7 ml/min; Est GFR (African American) 105.1 ml/min; Est GFR (Non-African American) 90.7 ml/min; Magnesium 2.1 mg/dl (1.8-2.4); Potassium 3.8 mmol/L (3.5-5.1)
[2021-10-12] MEDS ORDERED: VENLAFAXINE HCL XR 75 MG CAPXR PO SCH (09:00)
[2021-10-12] MEDS ORDERED: VENLAFAXINE HCL XR 150 MG CAPXR PO SCH (09:00)
[2021-10-12] MEDS ORDERED: METOPROLOL TARTRATE 25 MG TAB PO SCH (09:00)
[2021-10-12] MEDS ORDERED: lisinopril 10 MG TAB PO SCH (09:00)
--- NOTE | 2021-10-12 11:04 | XCELERA ---
[id number]
--- NOTE | 2021-10-12 11:48 | Electrocardiogram Report ---
Test Reason : Blood Pressure : / mmHG Vent. Rate : 159 BPM Atrial Rate : 159 BPM P-R Int : 122 ms QRS Dur : 084 ms QT Int : 272 ms P-R-T Axes : 086 072 055 degrees QTc Int : 442 ms Sinus tachycardia Otherwise Normal ECG When compared with ECG of 01-JAN-2021 15:08, Vent. rate has increased BY 94 BPM Confirmed by Parker Griffith ([id number]) on 10/12/2021 11:47:35 AM Referred By: REFERRED SELF Confirmed By:Parker Griffith
--- NOTE | 2021-10-12 11:49 | Electrocardiogram Report ---
Test Reason : Blood Pressure : / mmHG Vent. Rate : 064 BPM Atrial Rate : 064 BPM P-R Int : 172 ms QRS Dur : 102 ms QT Int : 400 ms P-R-T Axes : 027 070 051 degrees QTc Int : 412 ms Normal sinus rhythm Normal ECG When compared with ECG of 11-OCT-2021 20:05, (unconfirmed) Sinus rhythm has replaced Atrial fibrillation Vent. rate has decreased BY 65 BPM Confirmed by Parker Griffith ([id number]) on 10/12/2021 11:49:29 AM Referred By: REFERRED SELF Confirmed By:Parker Griffith
--- NOTE | 2021-10-12 11:49 | Electrocardiogram Report ---
Test Reason : Blood Pressure : / mmHG Vent. Rate : 129 BPM Atrial Rate : 277 BPM P-R Int : 000 ms QRS Dur : 090 ms QT Int : 282 ms P-R-T Axes : 000 068 040 degrees QTc Int : 413 ms Atrial fibrillation with rapid ventricular response Abnormal ECG When compared with ECG of 11-OCT-2021 19:36, (unconfirmed) Atrial fibrillation has replaced Sinus rhythm ST no longer depressed in Inferior leads Confirmed by Parker Griffith ([id number]) on 10/12/2021 11:48:36 AM Referred By: REFERRED SELF Confirmed By:Parker Griffith
--- NOTE | 2021-10-12 11:53 | Electrocardiogram Report ---
Test Reason : Blood Pressure : / mmHG Vent. Rate : 063 BPM Atrial Rate : 063 BPM P-R Int : 160 ms QRS Dur : 098 ms QT Int : 438 ms P-R-T Axes : 036 072 068 degrees QTc Int : 448 ms Normal sinus rhythm Normal ECG When compared with ECG of 11-OCT-2021 20:46, (unconfirmed) No significant change was found Confirmed by Parker Griffith ([id number]) on 10/12/2021 11:52:53 AM Referred By: REFERRED SELF Confirmed By:Parker Griffith
--- NOTE | 2021-10-12 15:15 | Discharge Summary ---
Date of Service October 12, 2021 Admission HPI Per Admitting Provider 50 yo M with PMH DM2, HTN, Depression in ER for complaint of persistent palpitations. States that he had a traumatic fall earlier this year that required admission and transfer to [facility]. Since then, has been having on and off episodes of palpitations with associated chest tightness. Denies any SOB/GRESHAM. No syncope, lightheadedness,dizziness, blurry vision. No cardiac hx. Smokes 1 ppdx 30years. Denies alcohol, IVDU, vaping, street drugs. ER Course significant for EKG/Tele monitoring showing Afib with RVR. converted into sinus rhythm and rate controlled after receiving total of 30 mg in 2 boluses of diltiazem. Principal Diagnosis Newly diagnosed atrial fibrillation Discharge Exam Constitutional WD/WN, vitals as above Eyes EOM intact bilaterally; no conjunctival abnormality ENMT external ear and nose normal, oropharynx normal Neck trachea midline, no thyromegaly normal visual inspection Respiratory normal respiratory effort, lungs clear to auscultation no respiratory distress Cardiovascular RRR, no murmur, no edema Gastrointestinal (Abdomen) Inspection/Auscultation: abdomen normal to inspection; abdomen not distended Musculoskeletal no cyanosis or clubbing, extremities motor strength 5/5 Skin no rashes, warm and dry Neurologic moves all extremities and awake Psychiatric Orientation: alert, oriented to person and cooperative Discharge Data Allergies Allergy/AdvReac Type Severity Reaction Status Date / Time Sulfa (Sulfonamide Allergy Intermediate Hives Verified 10/11/21 20:00 Antibiotics) Consultations 10/11/21 21:29 ED Decision to Admit Stat Hospital Course (1) Atrial fibrillation with rapid ventricular response: Atrial Fibrillation - Converted at 8:30pm. Total afib time was likely ~12 hours judging by patient symtoms. - Started on eliquis for anticoagulation [ [id number] = 2, HAS-BLED 1]. Discussed pros/cons of anticoagulation. He has no hx of bleeding (ICH, GI, etc.) and was willing to start it. -> Coupon given to him. In discussion with [facility], they thought that he should get first month free, then $10/month thereafter which patient reported he could afford. - Discharged on metoprolol XL 50 mg daily for rate control should he go back into afib. - TTE showed normal EF, no valvular issues. - TSH & FT4 wnl -> Encouraged f/u with Dr. Duarte or Dr. Mendoza. Could consider Holter vs. implantable loop recorder. Since he self-converted, he could consider stopping anticoagulation if prolonged monitoring shows no further episodes, but defer to cardiology. Leukocytosis - WBC elevation to 13k, neutrophil and lymphocyte predominance - No clear etiology/sign of infection. Not on steroids. - Likely stress response as it was returning to normal by discharge. HTN - cont lisinopril DM2 - hold oral diabetic medications - SSI Depression + Anxiety - cont trazodone, venlafaxine per home orders - takes clonazepam 0.5 mg PO BID Tobacco Use - not interested in nicotine patch - denies hx asthma/COPD/inhaler use DVT ppx: eliquis FEN/GI: heart healthy diet Bowel regimen: prn miralax Code Status: full code Dispo: med/tele (2) Diabetes: (3) Hypertension: (4) Depression with anxiety: (5) Leukocytosis: Total Time Total Time Spent Total Time Spent (In Minutes): 30 Discharge Plan Discharge Items Patient Disposition: Home - Self-Care Reason For Visit: NEW AFIB RVR Discharge Diagnosis: Newly diagnosed atrial fibrillation with rapid heart rate Activity: Resume your previous activity Non-emergency contact: Primary Care Provider and Centrifugal Spinner Call non-emergency contact if: your symptoms worsen Follow-up/Referrals: Leandra Goncavles CRNP [Primary Care Provider] - Massimo Duarte MD [Physician] - (Please see Dr. Duarte in 1-2 weeks to see about monitoring your heart to determine if you need a blood thinner or not.) Diet: Carb Consistent or DM2 and Heart Healthy Addtl Attending Provider Instructions: Mr. Mahajan, You were admitted to the hospital with chest palpitations and sensations that were discovered to be something called atrial fibrillation. As we discussed, thi s is where the top part of your heart (the atria) "short circuit" and start to send electrical impulses to the bottom half of the heart (the ventricles) in an irregular fashion. Your heart went a bit fast when this was occurring. Luckily, your heart popped out of the rhythm last evening and hasn't gone back in since then. We are sending you out with two medications to help with this issue. First, we will start you on a medication called metoprolol which helps control the heart rate should your heart go into atrial fibrillation again. It helps lower the stress on the heart. Please take this medication once per day. Second, we are sending you on a blood thinner which help prevent stroke. When people are in atrial fibrillation, a blood clot can form in the heart which then travels to the brain and causes a stroke. A blood thinner helps prevent this. This blood thinner must be taken twice per day to be effective. Your heart is squeezing well, and we did not see any issues with your heart valves. This is great news! Not everyone can tell exactly when they are and are not in atrial fibrillation. Please see Dr. Duarte in 1-2 weeks to see about monitoring your heart to determine if you need a blood thinner or not. He is an hat conditioner which is a fancy way to say an "exhibit electrician of the heart" and can help determine the next best steps for you. Pending Studies at Discharge: No Stand-Alone Forms: My [facility], Smoking Cessation Medications and DC Order Prescriptions: New metoprolol succinate 50 mg tablet extended release 24 hr 50 mg PO DAILY Qty: 30 RF: 0 apixaban 5 mg tablet 5 mg PO BID Qty: 60 RF: 0 Continued glimepiride 4 mg tablet 4 mg PO DAILY Qty: 90 RF: 3 metformin 500 mg tablet extended release 24 hr 1,000 mg PO QAM Qty: 180 RF: 3 lisinopril 10 mg tablet 10 mg PO DAILY Qty: 90 RF: 3 venlafaxine 75 mg capsule,extended release 24hr 75 mg PO QAM Qty: 90 RF: 3 venlafaxine 150 mg capsule,extended release 24hr 150 mg PO QAM Qty: 90 RF: 3 (DME) OneTouch Ultra Blue Test Strip strip See Dose Instructions .ROUTE .MEDSUPPLY Qty: 10 RF: 0 ketoconazole 2 % cream 1 appln topical BID PRN (Reason: rash) Qty: 1 RF: 0 cholecalciferol (vitamin D3) [Vitamin D3] 1,000 unit (25 mcg) tablet 2,000 units PO DAILY RF: 0 albuterol sulfate [Ventolin HFA] 90 mcg/actuation HFA aerosol inhaler 2 puffs INH .COMPLEX PRN (Reason: shortness of breath or wheezing) Qty: 18 RF: 1 lidocaine 5 % adhesive patch,medicated 1 patch topical DAILY PRN (Reason: pain, severe) Qty: 30 RF: 5 vitamin A-vitamin C-vit E-min Tablet 2 tab PO DAILY RF: 0 trazodone 50 mg tablet 50 mg PO HS RF: 0 sildenafil 100 mg tablet 50 mg PO DAILY PRN (Reason: sexual activity) RF: 0 methocarbamol 750 mg tablet 375 - 750 mg PO TID PRN (Reason: muscle pain) RF: 0 clonazepam 0.5 mg tablet 0.5 mg PO BID PRN (Reason: Anxiety) RF: 0 Discharge Orders: Discharge Order (Routine); Ordered 10/12/21 Ordered By: Stuart Mehta Admission Data Admit Date/Time: 10/11/21 21:50 Attending Provider: Stuart Mehta Admit Provider: Karen Hernandez Primary Care Provider: Leandra Goncalves Other Providers: Stuart Mehta Other Interventions: Discharge Summary Assessment (RN) Last Done: 10/12/21 14:47 Coding Level of Care Code 86158 OBS Care - Discharge Diagnoses Atrial fibrillation with rapid ventricular response I48.91 Diabetes E11.9 Hypertension I10 Depression with anxiety F41.8 Leukocytosis D72.829
[2021-10-12] MEDS ORDERED: traZODone HCL 50 MG TAB PO SCH (21:00)
== END 2021-10-12 15:13 | disposition home or self-care (01) ==
LOC: ED 19:27 → EDINP 19:27 → SUATTDRO 21:50 → EDINP 10-12 07:00

== ENCOUNTER 2023-06-15 16:51 | Inpatient (IN) ==
[2023-06-15] MEDS ORDERED: SODIUM CHLORIDE 0.9% 1,000 ML IV STA (16:52)
--- NOTE | 2023-06-15 17:04 | Emergency Department Note ---
Impression & Plan SVT (supraventricular tachycardia), Chest pain, Atrial flutter, SHANNON (acute kidney injury) ED Provider Note NAME: BHARATH COLEMAN AGE: 52 SEX: M : 1970 ARRIVES VIA: Ambulance INFORMANT: Patient, EMS ED PROVIDER(S): Parker Carrillo DO CHIEF COMPLAINT: Chest pain HPI: The patient is a 52-year-old male who presented to the emergency department for an evaluation of chest pain. The patient states he started feeling ill this afternoon. He thinks maybe around 1 PM. He started having pressure in his chest. He started noticing nausea as well as some upper extremity weakness. He states he called 911. He received aspirin prior to arrival. He was found to be in narrow complex tachycardia over 200 bpm. He was treated with adenosine. T his did not affect his rate however he had a Valsalva maneuver attempted by the prehospital personnel which did break the rhythm. He continued to have ST segment abnormalities in the EKG. I was contacted for medical command. The patient at this time has no chest pain. He denies having any difficulty breathing. He states he did have difficulty breathing when the of incident occurred. He denies have any lower extremity swelling. ROS: See above HPI for pertinent positives & negatives. A total of 10 systems reviewed and were otherwise negative. PAST MEDICAL HISTORY: See Below PAST SURGICAL HISTORY: See Below FAMILY HISTORY: See Below SOCIAL HISTORY: See Below HOME MEDICATIONS: See Below ALLERGIES: See Below VITALS: See Below PHYSICAL EXAMINATION: GENERAL: Patient is awake alert in no acute distress patient is resting comfortably and showing no signs of anxiety EYES: The conjunctivae are clear. The pupils are round and reactive. EARS, NOSE, MOUTH AND THROAT: The nose is without any evidence of any deformity. Mucous membranes are moist. Tongue is midline. NECK: The neck is nontender and supple. RESPIRATORY: Normal respiratory effort is noted there is no evidence of wheezing rhonchi or rales CARDIOVASCULAR: Tachycardic and regular heart sounds were noted to auscultation. There is no definite murmur. GASTROINTESTINAL: The abdomen is soft. Abdomen is nontender. MUSCULOSKELETAL/EXTREMITIES: There is no evidence of gross deformity full range of motion is noted in the hips and shoulders. SKIN: There is no obvious evidence of any rash. There are no petechiae, pallor or cyanosis noted. NEUROLOGIC: Patient is awake alert and oriented x3 MEDICAL DECISION MAKING: The patient is a 52-year-old male who presented to the emergency department for an evaluation of chest pain. The patient was found to have SVT with ST segment abnormalities prior to arrival. He did not respond to adenosine but he did re spond to Valsalva maneuver. He broke to atrial flutter. The patient was found to have significant improvement of his pain. I discussed the patient's laboratory and radiographic studies with him. I discussed the limitations of the emergency room work-up for chest pain with him. Ultimately he was found abnormal troponin. I discussed his condition with the [facility] cardiology group as well as [facility] hospitalist group. They have agreed to evaluate the patient in the emergency department. The patient has been having problems with palpitations. I did review the patient's outpatient cardiology note. The feel was that the patient may be having runs of atrial flutter or atrial f ibrillation. He currently does not take oral anticoagulation. This may need to change. He was started on heparin in the emergency department after discussion with cardiology. He was given Lopressor. Triage Nursing notes reviewed. Prior medical records reviewed Vital Signs: reviewed and remarkable for tachycardia Differential diagnosis: Cardiac ischemia, aortic dissection, pulmonary embolism, pneumothorax, pneumonia, pericarditis, myocarditis, esophageal rupture, GERD, cholecystitis, pancreatitis, musculoskeletal, as well as other pathologies. ER treatment provided: See below Diagnostics interpreted by me: ECG: EKG was obtained in the emergency department. My interpretation is atrial flutter at 122 bpm. No PVCs were noted. Nonspecific ST segment abnormalities were noted. This was compared to a tracing from March 23, 2023. The previous EKG was sinus rhythm with normal ST segments. Prehospital EKG was evaluated in the emergency department. My interpretation is narrow complex tachycardia at [address] segment depressions were noted throughout. A second prehospital EKG was obtained in the emergency department. My interpretation is atrial flutter at [address] segment elevations were noted. This compares similar to the EKG obtained in the emergency department. Cardiac Monitoring: An order was placed for continuous cardiac monitoring. The monitor shows a rate of 123 bpm with atrial flutter. Laboratory studies: As stated above and show below. Imaging studies: See below. Radiographic imaging was reviewed by myself Consultation(s): I discussed this case with Dr. Lee who is on for the [facility] cardiology group. I discussed this case with Dr. Avalos who is on-call for [facility] hospitalist group ED COURSE: Procedures: none Critical Care: I have personally spent greater than 45 minutes of critical care time in the direct management of this patient. This includes bedside care, interpretation of diagnostic studies, and testing, discussion with consultants, patient, and family members, and other required patient management activities. This 45 minutes is in excess of all separately billable procedures. Past Med/Surg History Medical History Anticoagulant long-term use now off Eliquis, monitored by Cardiology Diabetes NIDDM Fatigue GERD (gastroesophageal reflux disease) CONTROLLED Hiatal hernia Inguinal hernia Mild concussion 12/27 Multiple rib fractures 12/27 Obesity Palpitations Surgical History History of arthroscopy RT/LEFT KNEE History of esophagogastroduodenoscopy (EGD) Hx of vasectomy Family History Mother Family history of diabetes mellitus Grandmother Family history of diabetes mellitus Denies family history of Ovarian cancer Prostate cancer Myocardial infarction Breast cancer Colorectal cancer Social History Smoking Status: Current every day smoker Tobacco Type: Cigarettes Cigarettes Per Day: 20; Second Hand Exposure: Yes; Do You Dip or Chew Tobacco: No; Hx Alcohol Use: Yes Alcohol type: beer Hx Substance Use: No Preferred Language: German Communication Ability: Effective Fertilizer Applicator Required: No Beliefs That Will Affect Care: None marital status: Current Living Situation: Family current occupational status: employed Feels Safe at Home: Yes Dental Care, Regularly: No Seatbelt Use: sometimes Sunscreen Use: Yes Assistive Devices: Glasses Allergies Allergies Allergy/AdvReac Type Severity Reaction Status Date / Time Sulfa (Sulfonamide Allergy Intermediate Hives Verified 05/15/23 08:43 Antibiotics) Home Meds Home Medications Medication Instructions Recorded Confirmed cholecalciferol (vitamin D3) 25 2,000 units PO DAILY 06/05/19 06/15/23 mcg (1,000 unit) tablet (Vitamin D3) vitamin A-vitamin C-vit E-min 2 tab PO DAILY 02/19/21 06/15/23 tablet sildenafil 100 mg tablet 50 mg PO DAILY PRN sexual activity 10/11/21 06/15/23 Previous Rx's Medication Instructions Recorded albuterol sulfate 90 mcg/actuation 2 puffs inhalation .COMPLEX PRN 01/08/20 aerosol inhaler (Ventolin HFA) shortness of breath or wheezing #18 grams metformin 500 mg tablet,extended 1,000 mg PO QAM #180 tabs 03/28/22 release 24 hr glimepiride 4 mg tablet 4 mg PO DAILY #90 tabs 10/24/22 metoprolol succinate 100 mg 100 mg PO DAILY #90 tabs 12/15/22 tablet,extended release 24 hr trazodone 50 mg tablet 50 mg PO HS #90 tabs 01/10/23 duloxetine 60 mg capsule,delayed 60 mg PO BID #60 caps 05/15/23 release flecainide 100 mg tablet 100 mg PO Q12H #60 tabs 05/15/23 clonazepam 0.5 mg tablet 0.5 mg PO BID PRN Anxiety #60 tabs 05/29/23 Results & Data (ED) Vital Signs Vital Signs - 24 hr 06/15/23 17:02 06/15/23 17:07 06/15/23 17:24 Temperature 37 C Temperature Source Oral Pulse Rate 121 H 123 H Respiratory Rate 18 Respiratory Effort / Characteristics Non-Labored Respiratory Depth Normal Blood Pressure 121/84 120/70 Blood Pressure Mean 96 Pulse Oximetry 96 Oxygen Delivery Method Room Air Room Air Sepsis Recent Fever Within 48 Hours No Sepsis New/Unexplained Change in Mental Status N/A Sepsis Action Taken by Nursing No Action Required 06/15/23 17:10 06/15/23 18:00 06/15/23 18:30 Temperature Temperature Source Pulse Rate 121 H 123 H 121 H Respiratory Rate 14 18 Respiratory Effort / Characteristics Respiratory Depth Blood Pressure 113/80 111/80 Blood Pressure Mean 91 90 Pulse Oximetry 97 97 Oxygen Delivery Method Room Air Room Air Sepsis Recent Fever Within 48 Hours Sepsis New/Unexplained Change in Mental Status Sepsis Action Taken by Nursing 06/15/23 19:00 06/15/23 19:30 06/15/23 20:00 Temperature Temperature Source Pulse Rate 122 H 121 H 120 H Respiratory Rate 25 H 31 H 28 H Respiratory Effort / Characteristics Respiratory Depth Blood Pressure 121/81 117/90 129/92 Blood Pressure Mean 94 99 104 Pulse Oximetry 97 95 97 Oxygen Delivery Method Room Air Room Air Room Air Sepsis Recent Fever Within 48 Hours Sepsis New/Unexplained Change in Mental Status Sepsis Action Taken by Prison Medications Current Medication List: was personally reviewed by me Laboratory Data Attestation: I reviewed the patient's lab results. 06/15/23 17:00 06/15/23 17:00 Lab Results 06/15/23 06/15/23 06/15/23 Range/Units 17:00 17:00 17:00 WBC 12.68 H (4.8-10.8) K/ul RBC 5.04 (4.70-6.10) M/uL Hgb 15.3 (14.0-18.0) g/dl Hct 44.6 (42.0-52.0) % MCV 88.5 (80.0-100.0) fL MCH 30.4 (25.0-34.0) pg MCHC 34.3 (32.0-36.0) g/dL RDW Std Deviation 40.5 (36.4-46.3) fL RDW Coeff of Jenn 12.5 (11.5-14.5) % Plt Count 164 (130-400) K/uL MPV 11.7 (9.4-12.4) fL Immature Gran % (Auto) 0.4 % Neut % (Auto) 67.1 % Lymph % (Auto) 23.5 % Wells % (Auto) 8.2 % Eos % (Auto) 0.6 % Baso % (Auto) 0.2 % Neut # (Auto) 8.50 H (1.40-6.50) K/uL Lymph # (Auto) 2.98 (1.20-3.40) K/uL Wells # (Auto) 1.04 H (0.11-0.59) K/uL Eos # (Auto) 0.08 (0.00-0.50) K/uL Baso # (Auto) 0.03 (0.00-0.20) K/uL Immature Gran # (Auto) 0.05 (0.01-0.20) K/uL PT 11.4 (9.0-12.0) Seconds INR 1.0 (0.9-1.1) APTT 28.5 (21.0-31.0) Seconds PTT Ratio 1.0 Sodium 139 (136-145) mmol/L Potassium 3.9 (3.5-5.1) mmol/L Chloride 106 (98-107) mmol/L Carbon Dioxide 27 (21-32) mmol/L Anion Gap 6 (3-11) BUN 20 (6-23) mg/dl Creatinine 1.69 H (0.6-1.4) mg/dl Est Cr Clr Drug Dosing 70.2 ml/min Est GFR ( Amer) 52.9 ml/min Est GFR (Non-Af Amer) 45.7 ml/min BUN/Creatinine Ratio 11.8 (10-20) Glucose 167 H (70-99(Fasting)) mg/dl Calcium 9.5 (8.6-10.3) mg/dl Magnesium 2.0 (1.7-2.4) mg/dl Total Bilirubin 0.5 (0.2-1.0) mg/dl AST 49 H (13-39) U/L ALT 61 H (7-52) U/L Alkaline Phosphatase 36 (34-104) U/L Troponin I High Sens 13.0 (0-20) pg/ml Total Protein 6.7 (6.0-8.3) gm/dl Albumin 4.2 (3.4-5.0) gm/dl Globulin 2.5 (2.5-4.0) gm/dl Albumin/Globulin Ratio 1.7 (0.9-2) TSH (0.300-4.500) uIu/ml 06/15/23 Range/Units 17:00 WBC (4.8-10.8) K/ul RBC (4.70-6.10) M/uL Hgb (14.0-18.0) g/dl Hct (42.0-52.0) % MCV (80.0-100.0) fL MCH (25.0-34.0) pg MCHC (32.0-36.0) g/dL RDW Std Deviation (36.4-46.3) fL RDW Coeff of Jenn (11.5-14.5) % Plt Count (130-400) K/uL MPV (9.4-12.4) fL Immature Gran % (Auto) % Neut % (Auto) % Lymph % (Auto) % Wells % (Auto) % Eos % (Auto) % Baso % (Auto) % Neut # (Auto) (1.40-6.50) K/uL Lymph # (Auto) (1.20-3.40) K/uL Wells # (Auto) (0.11-0.59) K/uL Eos # (Auto) (0.00-0.50) K/uL Baso # (Auto) (0.00-0.20) K/uL Immature Gran # (Auto) (0.01-0.20) K/uL PT (9.0-12.0) Seconds INR (0.9-1.1) APTT (21.0-31.0) Seconds PTT Ratio Sodium (136-145) mmol/L Potassium (3.5-5.1) mmol/L Chloride (98-107) mmol/L Carbon Dioxide (21-32) mmol/L Anion Gap (3-11) BUN (6-23) mg/dl Creatinine (0.6-1.4) mg/dl Est Cr Clr Drug Dosing ml/min Est GFR ( Amer) ml/min Est GFR (Non-Af Amer) ml/min BUN/Creatinine Ratio (10-20) Glucose (70-99(Fasting)) mg/dl Calcium (8.6-10.3) mg/dl Magnesium (1.7-2.4) mg/dl Total Bilirubin (0.2-1.0) mg/dl AST (13-39) U/L ALT (7-52) U/L Alkaline Phosphatase (34-104) U/L Troponin I High Sens (0-20) pg/ml Total Protein (6.0-8.3) gm/dl Albumin (3.4-5.0) gm/dl Globulin (2.5-4.0) gm/dl Albumin/Globulin Ratio (0.9-2) TSH 2.524 (0.300-4.500) uIu/ml Administered Medications Heparin Sodium/Dextrose (Heparin Sodium/Dextrose) 25,000 units in 500 mls @ 35 mls/hr IV .[id number] [facility]; Protocol Stop: 07/15/23 17:44 Last Admin: 06/15/23 17:35 Dose: 1,750 units/hr, 35 mls/hr Documented By: ROHIT Co-signed By: ELECTRICAL ENGINEERING DESIGNER Discontinued Medications Acetaminophen (Acetaminophen 500 Mg Tab) 1,000 mg PO NOW STA Stop: 06/15/23 20:06 Last Admin: 06/15/23 20:14 Dose: 1,000 mg Documented By: DANIEL Sodium Chloride (Nss) 1,000 mls @ 999 mls/hr IV .Q1H1M STA Stop: 06/15/23 17:52 Last Admin: 06/15/23 17:09 Dose: 999 mls/hr Documented By: DOTTY Metoprolol Tartrate (Metoprolol Tartrate 1 Mg/Ml Vial) 5 mg IV NOW STA Stop: 06/15/23 17:18 Last Admin: 06/15/23 17:24 Dose: 5 mg Documented By: DANIEL Potassium Chloride (Potassium Chloride Crtab 20 Meq Tabcr) 20 meq PO NOW STA Stop: 06/15/23 19:32 Last Admin: 06/15/23 20:14 Dose: 20 meq Documented By: DANIEL Imaging Data Attestation: I personally reviewed and interpreted this imaging study as follows: My Impression: 1 view chest x-ray was obtained in the emergency department. My interpretation is no free air or definite infiltrate, final report below Radiologist's Impression: Chest X-Ray 06/15/23 16:53 XR chest 1V portable HISTORY: Dysrhythmia COMPARISON: Chest 10/11/2021. FINDINGS: No pneumothorax. No pleural effusions. No focal lung consolidations to suggest a pneumonia. No evidence for pulmonary edema. The cardiac silhouette remains top normal in size. Chronic separation of the left acromion clavicular joint remains unchanged. IMPRESSION: No significant change compared to the prior study. No acute process. ACT 112: Negative or not required by law. Electronically signed by: Barry Pope M.D. 06/15/2023 5:25 PM Discharge Plan Visit Data Chief Complaint: Chest Pain Stated Complaint: CHEST PAIN ED Provider: Parker Carrillo Discharge Problem: SVT (supraventricular tachycardia), Chest pain, Atrial flutter, SHANNON (acute kidney injury) Patient Disposition: Being Evaluated by Hospitalist Forms Stand Alone Forms: My [facility] Prescriptions Prescriptions: No Action metformin 500 mg tablet extended release 24 hr 1,000 mg PO QAM Qty: 180 3RF glimepiride 4 mg tablet 4 mg PO DAILY Qty: 90 3RF metoprolol succinate 100 mg tablet extended release 24 hr 100 mg PO DAILY Qty: 90 3RF trazodone 50 mg tablet 50 mg PO HS Qty: 90 3RF clonazepam 0.5 mg tablet 0.5 mg PO BID PRN (Reason: Anxiety) Qty: 60 0RF cholecalciferol (vitamin D3) [Vitamin D3] 1,000 unit (25 mcg) tablet 2,000 units PO DAILY albuterol sulfate [Ventolin HFA] 90 mcg/actuation HFA aerosol inhaler 2 puffs INH .COMPLEX PRN (Reason: shortness of breath or wheezing) Qty: 18 1RF Rx Instructions: 2 puff INH Q4-6H PRN; vitamin A-vitamin C-vit E-min Tablet 2 tab PO DAILY duloxetine 60 mg capsule,delayed release(DR/EC) 60 mg PO BID Qty: 60 4RF Rx Instructions: pt aware dose change flecainide 100 mg tablet 100 mg PO Q12H Qty: 60 2RF sildenafil 100 mg tablet 50 mg PO DAILY PRN (Reason: sexual activity) Rx Instructions: 1/2 tab daily PO daily PRN; administer 30 minutes to 4 hours before activity Referrals Referrals: Leandra Goncalves CRNP [Primary Care Provider] - Chest pain Qualifiers: Chest pain type: unspecified Qualified Code(s): R07.9 - Chest pain, unspecified Atrial flutter Qualifiers: Atrial flutter type: unspecified Qualified Code(s): I48.92 - Unspecified atrial flutter
[2023-06-15] MEDS ORDERED: METOPROLOL TARTRATE 1 MG/ML VIAL IV STA (17:17)
[2023-06-15] MEDS ORDERED: Heparin IV Adult Wt-Based Standard *NO* Bolus Protocol IV ONE (17:19)
[2023-06-15 17:22] LABS: Basophils # (auto) 0.03 K/uL (0.00-0.20); Basophils % (auto) 0.2 %; Eosinophils # (auto) 0.08 K/uL (0.00-0.50); Eosinophils % (auto) 0.6 %; Hematocrit (blood only) 44.6 % (42.0-52.0); Hemoglobin 15.3 g/dl (14.0-18.0); Immature Granulocytes # (auto) 0.05 K/uL (0.01-0.20); Immature Granulocytes % (auto) 0.4 %; Lymphocytes # (auto) 2.98 K/uL (1.20-3.40); Lymphocytes % (auto) 23.5 %; Mean Corpuscular Hemoglobin 30.4 pg (25.0-34.0); Mean Corpuscular Hgb Conc 34.3 g/dL (32.0-36.0); Mean Corpuscular Volume 88.5 fL (80.0-100.0); Mean Platelet Volume 11.7 fL (9.4-12.4); Monocytes # (auto) 1.04 K/uL (0.11-0.59); Monocytes % (auto) 8.2 %; Neutrophils % (auto) 67.1 %; Platelet Count 164 K/uL (130-400); RDW Coefficient of Variation 12.5 % (11.5-14.5); RDW Standard Deviation 40.5 fL (36.4-46.3); Red Blood Count 5.04 M/uL (4.70-6.10); White Blood Count 12.68 K/ul (4.8-10.8)
--- NOTE | 2023-06-15 17:26 | XRay Report ---
XR chest 1V portable HISTORY: Dysrhythmia COMPARISON: Chest 10/11/2021. FINDINGS: No pneumothorax. No pleural effusions. No focal lung consolidations to suggest a pneumonia. No evidence for pulmonary edema. The cardiac silhouette remains top normal in size. Chronic separati on of the left acromion clavicular joint remains unchanged. IMPRESSION: No significant change compared to the prior study. No acute process. ACT 112: Negative or not required by law. Electronically signed by: Barry Pope M.D. 06/15/2023 5:25 PM
[2023-06-15] MEDS: HEPARIN SODIUM/DEXTROSE 25,000 UNITS/500 ML BAG IV SCH (17:35)
[2023-06-15 17:38] LABS: Albumin Globulin Ratio 1.7 (0.9-2); Albumin Level 4.2 gm/dl (3.4-5.0); BUN Creatinine Ratio 11.8 (10-20); Bilirubin,Total 0.5 mg/dl (0.2-1.0); Calcium 9.5 mg/dl (8.6-10.3); Creatinine Clr Calc Pharmacy 70.2 ml/min; Est GFR (African American) 52.9 ml/min; Est GFR (Non-African American) 45.7 ml/min; Globulin 2.5 gm/dl (2.5-4.0); Potassium 3.9 mmol/L (3.5-5.1); Total Protein 6.7 gm/dl (6.0-8.3)
[2023-06-15 17:49] LABS: Partial Thromboplastin Time 28.5 Seconds (21.0-31.0); Prothrombin Time 11.4 Seconds (9.0-12.0)
--- NOTE | 2023-06-15 18:46 | History & Physical Report ---
Date of Service June 15, 2023 Assessment & Plan (1) Atrial flutter with rapid ventricular response: Plan: -Atrial flutter with RVR noted on EKG and monitor with HR 200+ s/p adenosine, Valsalva and Lopressor 5 mg IV -Currently sinus rhythm with HR ~120, normotensive -Negative troponin without any chest pain at present- will obtain repeat troponin and trend to peak -Maintain K > 4, Mg > 2 -[id number] score of 2, not on anticoagulation as outpatient- will continue heparin for anticoagulation at present -Repeat TTE pending -Last TTE 10/2021 unremarkable- EF 60-65% -Continue fleicanide 100 mg BID, Toprol XL 100 mg daily -May repeat Lopressor should pt return to atrial flutter/fibrillation with uncontrolled rate -Telemetry monitoring -Cardiology consult placed for AM (2) Paroxysmal atrial fibrillation: Plan: -As above, history of atrial fibrillation +/- atrial flutter (3) SHANNON (acute kidney injury): Plan: -Cr 1.69 on admission -Likely pre-renal from dehydration -Continue LR fluid repletion -Trend BMP (4) Leukocytosis: Plan: -WBC 12.7 on admission -Pt's symptoms do not suggest infectious cause and afebrile, suspect this may be stress/demargination leukocytosis from AF w/ RVR -Trend CBC (5) Diabetes: Plan: -A1C 8.6% in 03/2022 -Holding home metformin + glimepiride -Lantus, SSI + BSG ACHS (6) Hypertension: Plan: -BP stable -Continue Toprol, (7) Depression with anxiety: Plan: -Continue Cymbalta -Continue Klonopin PRN (8) Insomnia: Plan: -Continue trazodone Plan FENGI: DM2, NPO after midnight Code status: Full DVT prophylaxis: Heparin Isolation: None Disposition: PCU History of Present Illness Chief Complaint: Palpitations Primary Care Provider: DELANO Osei Pt is 52 yo M with PMH paroxysmal AF/atrial flutter, DM2, HTN, depression, anxiety, tobacco use disorder presenting with palpitations. Pt has had ongoing palpitations for several years but reportedly more frequent over the last few years- multiple episodes of palpitations and rapid heartbeat per week, transient and self-resolving in few minutes, no associated chest pain or syncope. He was admitted at [facility] for this in 10/2021 and received diagnosis of atrial fibrillation and script for Eliquis (discontinued by cardiology shortly after discharge). His palpitations have increased in frequency/duration since 10/2022 and pt underwent several medication changes by cardiology including addition/uptitration of fleicanide and Toprol XL. He was last seen by cardiology in 03/2023 and his fleicanide dose was increased to 100 mg BID. Pt was seen by PCP on 05/12 and HR elevated to 140s (AF w/ RVR) at that visit. Pt reports today around noon he began to have very rapid heartbeat and increased palpitations with more severity than his prior episodes. This persisted without resolution for about 3 hours and was accompanied by dyspnea, lightheadedness, nausea, midsternal 5/10 chest pressure but no overt chest pain or syncope. He did call 911, was given aspirin by EMS and noted to be in SVT with HR 200+ for which he received adenosine. Adenosine failed to resolve his tachycardia but Valsalva resolved SVT rhythm which broke to atrial flutter. Prehospital EKG initially showing narrow complex tachycardia with HR 200+, diffuse ST changes. Repeat prehospital EKG showing atrial flutter at HR 110+ with anterolateral ST elevations. Pt arrived to ER with HR 120s, atrial flutter with 2-1 block, normotensive. Initial evaluation significant for WBC 12.7, K 3.9, Cr 1.7, AST 49, ALT 61. CBC, CMP, Mg otherwise unremarkable. CXR negative. Negative troponin. EKG w/ atrial flutter at HR 122, no overt ST elevations/depressions noted though abnormal ST segments. ER interventions include 1L NSS bolus, Lopressor 5 mg IV, heparin IV. At present, pt reports no chest pain or further palpitations. HR consistently 120s, sinus, at time of my evaluation on monitor. Denies any new complaints aside from 5/10 frontal dull headache. Allergies Allergy/AdvReac Type Severity Reaction Status Date / Time Sulfa (Sulfonamide Allergy Intermediate Hives Verified 05/15/23 08:43 Antibiotics) Home Medications Medication Instructions Recorded Confirmed Type cholecalciferol (vitamin D3) 25 2,000 units PO DAILY 06/05/19 06/15/23 History mcg (1,000 unit) tablet (Vitamin D3) albuterol sulfate 90 mcg/actuation 2 puffs inhalation .COMPLEX PRN 01/08/20 06/15/23 Rx aerosol inhaler (Ventolin HFA) shortness of breath or wheezing #18 grams vitamin A-vitamin C-vit E-min 2 tab PO DAILY 02/19/21 06/15/23 History tablet sildenafil 100 mg tablet 50 mg PO DAILY PRN sexual activity 10/11/21 06/15/23 History metformin 500 mg tablet,extended 1,000 mg PO QAM #180 tabs 03/28/22 06/15/23 Rx release 24 hr glimepiride 4 mg tablet 4 mg PO DAILY #90 tabs 10/24/22 06/15/23 Rx metoprolol succinate 100 mg 100 mg PO DAILY #90 tabs 12/15/22 06/15/23 Rx tablet,extended release 24 hr trazodone 50 mg tablet 50 mg PO HS #90 tabs 01/10/23 06/15/23 Rx duloxetine 60 mg capsule,delayed 60 mg PO BID #60 caps 05/15/23 06/15/23 Rx release flecainide 100 mg tablet 100 mg PO Q12H #60 tabs 05/15/23 06/15/23 Rx clonazepam 0.5 mg tablet 0.5 mg PO BID PRN Anxiety #60 tabs 05/29/23 06/15/23 Rx Past Med/Surg History Medical History Anticoagulant long-term use now off Eliquis, monitored by Cardiology Diabetes NIDDM Fatigue GERD (gastroesophageal reflux disease) CONTROLLED Hiatal hernia Inguinal hernia Mild concussion 12/27 Multiple rib fractures 12/27 Obesity Palpitations Surgical History History of arthroscopy RT/LEFT KNEE History of esophagogastroduodenoscopy (EGD) Hx of vasectomy Family History Mother Family history of diabetes mellitus Grandmother Family history of diabetes mellitus Denies family history of Ovarian cancer Prostate cancer Myocardial infarction Breast cancer Colorectal cancer Social History Smoking Status: Current every day smoker Tobacco Type: Cigarettes Cigarettes Per Day: 20; Second Hand Exposure: Yes; Do You Dip or Chew Tobacco: No; Hx Alcohol Use: No Hx Substance Use: No Preferred Language: [place] Communication Ability: Effective Applications Administrator Required: No Beliefs That Will Affect Care: None marital status: Current Living Situation: Spouse current occupational status: employed Other Information That Helps Us Care for You: No Feels Safe at Home: Yes Safety Concerns: Feels Safe At This Time Dental Care, Regularly: No Seatbelt Use: sometimes Sunscreen Use: Yes Assistive Devices: Glasses Review of Systems Review of Systems: Per HPI Physical Exam Physical Exam: General: well-appearing, no acute distress HEENT: PERRL, EOMI, conjunctivae clear without injection, anicteric sclerae, moist mucous membranes, clear oropharynx without exudate or erythema Neck: supple, trachea midline, no thyromegaly, no JVD, no cervical lymphadenopathy CV: Regular rhythm, tachycardic, normal S1 and S2, no murmurs Resp: CTAB, no increased work of breathing, no crackles or wheezes Abd: Soft, nontender, nondistended, no guarding or rebound, no hepatosplenomegaly MSK: Normal bulk of all four extremities Neuro: AOx3, no focal motor or sensory deficits Skin: no rashes or lesions, warm and dry Ext: no LE peripheral edema or erythema, capillary refill <2s in all four extremities, 2+ LE peripheral pulses b/l Results & Data Results & Data Vital Signs (Past 12 Hours) Vital Signs Temp Pulse Resp BP Pulse Ox O2 Del Method 06/15/23 17:10 121 H 06/15/23 17:24 123 H 120/70 06/15/23 17:07 Room Air 06/15/23 17:02 37 C 121 H 18 121/84 96 Room Air Supervising Physician Co-Signing Physician Notes I personally saw and examined the patient. I verified all munoz points and agree with resident physician Dr Ace Allen, with the following exceptions and/or additions: 52 year old male presents to the ER with chest pain. Sudden onset symptoms started around noon with chest pressure and palpitations. EMS took EKG with HR 200s regular concerning for SVT. He broke his rhythm with adenosine and Valsalva manoeuvre now in atrial fibrillation without any chest pain. No longer having an y chest pain or shortness of breath. O/E HS increased rate, irregular rhythm, no murmurs, Chest CTAB, Abdo SNT A/P SVT now resolved, Atrial flutter with rapid ventricular rate - Continue metoprolol succinate with metoprolol IV 5mg PRN for HR > 120. Anticoagulation with IV heparin. Consult cardiology. TTE, trend troponin overnight. Otherwise as above Resident Activity Tracking Resident Involvement: Resident Care Provided Care Provided: Adult Hospital Medicine (6) Hypertension Hypertension type: primary hypertension Qualified Code(s): I10 - Essential (primary) hypertension
[2023-06-15] MEDS ORDERED: POTASSIUM CHLORIDE CRTAB 20 MEQ TABCR PO STA (19:31)
[2023-06-15] MEDS ORDERED: ACETAMINOPHEN 500 MG TAB PO STA (20:05)
[2023-06-15] MEDS ORDERED: ALBUTEROL HFA 8 GM INHALER INH PRN (21:19)
[2023-06-15] MEDS ORDERED: METOPROLOL TARTRATE 1 MG/ML VIAL IV PRN (21:19)
[2023-06-15] MEDS ORDERED: NITROGLYCERIN SL 0.4 MG/TAB TAB SL PRN (21:19)
[2023-06-15] MEDS ORDERED: GLUCOSE 40% GEL 15 GM TUBE PO PRN (21:19)
[2023-06-15] MEDS ORDERED: CARBOHYDRATES FOR HYPOGLYCEMIA PO PRN (21:19)
[2023-06-15] MEDS ORDERED: clonazePAM 0.5 MG TAB PO PRN (21:19)
[2023-06-15] MEDS ORDERED: GLUCAGON FOR INJ 1 MG VIAL SQ PRN (21:19)
[2023-06-15] MEDS ORDERED: GLUCOSE 10 TAB/TUBE PO PRN (21:19)
[2023-06-15] MEDS ORDERED: DEXTROSE 50% 50 ML SYRINGE IV PRN (21:19)
[2023-06-15] MEDS ORDERED: LACTATED RINGER'S 1,000 ML IV SCH (21:45)
[2023-06-15] MEDS: INSULIN ASPART PER UNIT CHARGE SC SCH (21:55)
[2023-06-15] MEDS: LANTUS PER UNIT CHARGE SQ SCH (22:54)
[2023-06-15] MEDS: FLECAINIDE ACETATE 100 MG TABLET PO SCH (22:56)
[2023-06-15] MEDS: DULoxetine HCL 60 MG CAP PO SCH (22:56)
[2023-06-15] MEDS: traZODone HCL 50 MG TAB PO SCH (22:56)
[2023-06-16 00:36] LABS: Partial Thromboplastin Ratio 2.1
[2023-06-16 00:46] LABS: Partial Thromboplastin Time 59.5 Seconds (21.0-31.0)
[2023-06-16 03:34] LABS: Hematocrit (blood only) 42.2 % (42.0-52.0); Hemoglobin 15.1 g/dl (14.0-18.0); Mean Corpuscular Hemoglobin 30.9 pg (25.0-34.0); Mean Corpuscular Hgb Conc 35.8 g/dL (32.0-36.0); Mean Corpuscular Volume 86.3 fL (80.0-100.0); Mean Platelet Volume 11.7 fL (9.4-12.4); Platelet Count 159 K/uL (130-400); RDW Coefficient of Variation 12.3 % (11.5-14.5); RDW Standard Deviation 38.8 fL (36.4-46.3); Red Blood Count 4.89 M/uL (4.70-6.10); White Blood Count 11.57 K/ul (4.8-10.8)
[2023-06-16 03:49] LABS: BUN Creatinine Ratio 18.3 (10-20); Creatinine Clr Calc Pharmacy 101.6 ml/min; Est GFR (African American) 84.3 ml/min; Est GFR (Non-African American) 72.8 ml/min; Magnesium 1.9 mg/dl (1.7-2.4); Potassium 3.7 mmol/L (3.5-5.1)
[2023-06-16] MEDS: HEPARIN SODIUM/DEXTROSE 25,000 UNITS/500 ML BAG IV SCH (08:03)
[2023-06-16 08:40] LABS: Partial Thromboplastin Ratio 2.4
[2023-06-16 08:51] LABS: Partial Thromboplastin Time 66.3 Seconds (21.0-31.0)
--- NOTE | 2023-06-16 08:56 | Billing Data ---
Date of Service June 15, 2023 Coding Level of Care Code 47188 INT INP/OBS CARE
[2023-06-16] MEDS: LANTUS PER UNIT CHARGE SQ SCH ×2 (09:00→20:20)
[2023-06-16] MEDS: INSULIN ASPART PER UNIT CHARGE SC SCH ×4 (09:00→21:00)
[2023-06-16] MEDS: METOPROLOL SUCC 50MG EXT REL TAB PO SCH (09:53)
[2023-06-16] MEDS: FLECAINIDE ACETATE 100 MG TABLET PO SCH (10:21)
[2023-06-16] MEDS: DULoxetine HCL 60 MG CAP PO SCH ×2 (10:21→20:16)
--- NOTE | 2023-06-16 12:45 | XCELERA ---
[id number] [id number]
--- NOTE | 2023-06-16 16:22 | Cardiology Consultation ---
Date of Consultation June 16, 2023 Assessment & Plan (1) Atrial flutter with rapid ventricular response: (2) Paroxysmal atrial fibrillation: (3) Cardiomyopathy: (4) Mitral regurgitation: Plan 1. Atrial flutter: He does have history of atrial flutter. His presenting rhythm was consistent with atrial flutter and associated high ventricular response. This appears to be atypical right atrial flutter. Unclear duration. In the setting of reduced LV systolic function I wonder if this is more longstanding than he realizes. He does seem to have fairly frequent palpitations over the past several weeks. In the absence of a defined time frame for initiation and the absence of anticoagulation, will need to proceed cautiously with cardioversion. He will require exclusion of left atrial appendage thrombus prior to cardioversion. This will necessitate a NADEGE. Unfortunately, the patient ate breakfast today and there will be no anesthesiology availability today to perform the required procedures. As such, we will concentrate on rate control until we can perform cardioversion. Possible he will convert spontaneously on his own. 2. Atrial fibrillation: He has a reported history of atrial fibrillation as well. He has several risk factors for thromboembolic phenomenon, but is not on systemic anticoagulation 3. Cardiomyopathy: Very possibly rate related. He did not endorse symptoms of ischemic heart disease although he certainly is in the demographic for coronary disease as well. Very mild biomarker elevation which is not consistent with an acute coronary syndrome and speaks against ischemic heart disease. A return to sinus rhythm at normal rates will be our 1st intervention. Will likely start him on daily metoprolol succinate as well. Re-evaluation of his LV function in a few weeks will give us a better understanding of whether more aggressive t herapy or evaluation is required. 4. Mitral regurgitation: Mild to moderate. This can be monitored over time. Possibly worse due to his current LV dysfunction He has been maintained on flecainide for rhythm control. However, this appears to be both ineffectual and contraindicated given his new cardiomyopathy. I will stop the flecainide. Once he is cardioverted we may have an opportunity add another antiarrhythmic. He will require continued systemic anticoagulation as well. History of Present Illness Reason for Consultation: Tachycardia Requesting Physician: Tiffany Attending Physician: Donis Escalante History of Present Illness The patient is a 52-year-old gentleman with a history of paroxysmal atrial fibrillation and atrial flutter who presents to the hospital with symptoms of worsening palpitations, dyspnea, dizziness and fatigue. Patient has a long history of atrial fibrillation manifest primarily by palpitations. He states that over the years his episodes have become more frequent. In the past few weeks he has been having episodes every other day that he believes lasts for couple of hours. During these times he will have the symptoms mentioned above which include mild dyspnea, mild dizziness, fatigue an element of exercise intolerance. Yesterday the symptoms appear to be intensified in his heart was racing more than normal. Due to the persistent nature and more severe nature of his symptoms he presented to the emergency room for evaluation. 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 He states that generally he can do heavy exertion without limiting dyspnea or symptoms of chest discomfort. He generally does not have symptoms of dizziness and cannot recall any syncopal episodes. He denies heavy alcohol use. He has not experienced sleep difficulty and his who was present for today's interview did not endorse symptoms of snoring. He does smoke cigarettes. Allergies Allergy/AdvReac Type Severity Reaction Status Date / Time Sulfa (Sulfonamide Allergy Intermediate Hives Verified 05/15/23 08:43 Antibiotics) Home Medications Medication Instructions Recorded Confirmed Type cholecalciferol (vitamin D3) 25 2,000 units PO DAILY 06/05/19 06/15/23 History mcg (1,000 unit) tablet (Vitamin D3) albuterol sulfate 90 mcg/actuation 2 puffs inhalation .COMPLEX PRN 01/08/20 06/15/23 Rx aerosol inhaler (Ventolin HFA) shortness of breath or wheezing #18 grams vitamin A-vitamin C-vit E-min 2 tab PO DAILY 02/19/21 06/15/23 History tablet sildenafil 100 mg tablet 50 mg PO DAILY PRN sexual activity 10/11/21 06/15/23 History metformin 500 mg tablet,extended 1,000 mg PO QAM #180 tabs 03/28/22 06/15/23 Rx release 24 hr glimepiride 4 mg tablet 4 mg PO DAILY #90 tabs 10/24/22 06/15/23 Rx metoprolol succinate 100 mg 100 mg PO DAILY #90 tabs 12/15/22 06/15/23 Rx tablet,extended release 24 hr trazodone 50 mg tablet 50 mg PO HS #90 tabs 01/10/23 06/15/23 Rx duloxetine 60 mg capsule,delayed 60 mg PO BID #60 caps 05/15/23 06/15/23 Rx release flecainide 100 mg tablet 100 mg PO Q12H #60 tabs 05/15/23 06/15/23 Rx clonazepam 0.5 mg tablet 0.5 mg PO BID PRN Anxiety #60 tabs 05/29/23 06/15/23 Rx Patient History Medical History Anticoagulant long-term use now off Eliquis, monitored by Cardiology Diabetes NIDDM Fatigue GERD (gastroesophageal reflux disease) CONTROLLED Hiatal hernia Inguinal hernia Mild concussion 12/27 Multiple rib fractures 12/27 Obesity Palpitations Surgical History History of arthroscopy RT/LEFT KNEE History of esophagogastroduodenoscopy (EGD) Hx of vasectomy Family History Mother Family history of diabetes mellitus Grandmother Family history of diabetes mellitus Denies family history of Ovarian cancer Prostate cancer Myocardial infarction Breast cancer Colorectal cancer Social History Smoking Status: Current every day smoker Tobacco Type: Cigarettes Cigarettes Per Day: 20; Second Hand Exposure: Yes; Do You Dip or Chew Tobacco: No; Hx Alcohol Use: No Hx Substance Use: No Preferred Language: Indonesian Communication Ability: Effective Polygraph Operator Required: No Beliefs That Will Affect Care: None marital status: Current Living Situation: Spouse current occupational status: employed Other Information That Helps Us Care for You: No Feels Safe at Home: Yes Safety Concerns: Feels Safe At This Time Dental Care, Regularly: No Seatbelt Use: sometimes Sunscreen Use: Yes Assistive Devices: None Review of Systems Review of Systems: Per HPI Physical Exam Physical Exam: The patient is alert and oriented. Mood and affect appeared normal. He answered all questions appropriately. HEENT: Pupils are equal and reactive to light and accommodation. Extraocular movements are intact. The sclerae are anicteric. Neuro: Cranial nerves intact Lungs: Clear to auscultation bilaterally. He has good air movement without use of accessory muscles. No rales wheezes or rhonchi. Cardiac: Heart demonstrates a regular rhythm but elevated rate. Normal S1 and S2. No murmurs on examination. Pulses: The patient has palpable radial pulses bilaterally that are equal in intensity Extremities: There was no evidence of hypoperfusion. There is no cyanosis or clubbing. There is no edema. Skin: I did not appreciate any rashes on examination today. Results & Data Vital Signs (Past 12 Hours) Vital Signs Temp Pulse Resp BP BP Pulse Ox O2 Del Method 06/16/23 15:59 36.5 C 116 H 17 127/88 94 Room Air 06/16/23 12:02 36.5 C 124 H 18 120/87 97 Room Air 06/16/23 08:10 36.4 C L 115 H 17 114/84 93 Room Air 06/16/23 04:25 36.3 C L 110 H 18 119/79 93 Room Air Laboratory Results Abnormal Lab Results 06/15/23 06/15/23 06/15/23 17:00 17:00 17:00 WBC 12.68 H RBC 5.04 Hgb 15.3 Hct 44.6 MCV 88.5 MCH 30.4 MCHC 34.3 RDW Std Deviation 40.5 RDW Coeff of Jenn 12.5 Plt Count 164 MPV 11.7 Immature Gran % (Auto) 0.4 Neut % (Auto) 67.1 Lymph % (Auto) 23.5 [place] % (Auto) 8.2 Eos % (Auto) 0.6 Baso % (Auto) 0.2 Neut # (Auto) 8.50 H Lymph # (Auto) 2.98 [place] # (Auto) 1.04 H Eos # (Auto) 0.08 Baso # (Auto) 0.03 Immature Gran # (Auto) 0.05 PT 11.4 INR 1.0 APTT 28.5 PTT Ratio 1.0 Sodium 139 Potassium 3.9 Chloride 106 Carbon Dioxide 27 Anion Gap 6 BUN 20 Creatinine 1.69 H Est Cr Clr Drug Dosing 70.2 Est GFR ( Amer) 52.9 Est GFR (Non-Af Amer) 45.7 BUN/Creatinine Ratio 11.8 Glucose 167 H POC Glucose Calcium 9.5 Magnesium 2.0 Total Bilirubin 0.5 AST 49 H ALT 61 H Alkaline Phosphatase 36 Troponin I High Sens 13.0 Total Protein 6.7 Albumin 4.2 Globulin 2.5 Albumin/Globulin Ratio 1.7 TSH 09/07/23 09/07/23 09/07/23 17:00 21:33 21:40 WBC RBC Hgb Hct MCV MCH MCHC RDW Std Deviation RDW Coeff of Jenn Plt Count MPV Immature Gran % (Auto) Neut % (Auto) Lymph % (Auto) [place] % (Auto) Eos % (Auto) Baso % (Auto) Neut # (Auto) Lymph # (Auto) [place] # (Auto) Eos # (Auto) Baso # (Auto) Immature Gran # (Auto) PT INR APTT PTT Ratio Sodium Potassium Chloride Carbon Dioxide Anion Gap BUN Creatinine Est Cr Clr Drug Dosing Est GFR ( Amer) Est GFR (Non-Af Amer) BUN/Creatinine Ratio Glucose POC Glucose 107 H Calcium Magnesium Total Bilirubin AST ALT Alkaline Phosphatase Troponin I High Sens 25.8 H D Total Protein Albumin Globulin Albumin/Globulin Ratio TSH 2.524 06/15/23 06/16/23 06/16/23 23:28 03:14 03:14 WBC 11.57 H RBC 4.89 Hgb 15.1 Hct 42.2 MCV 86.3 MCH 30.9 MCHC 35.8 RDW Std Deviation 38.8 RDW Coeff of Jenn 12.3 Plt Count 159 MPV 11.7 Immature Gran % (Auto) Neut % (Auto) Lymph % (Auto) [place] % (Auto) Eos % (Auto) Baso % (Auto) Neut # (Auto) Lymph # (Auto) [place] # (Auto) Eos # (Auto) Baso # (Auto) Immature Gran # (Auto) PT INR APTT 59.5 H* PTT Ratio 2.1 Sodium Potassium Chloride Carbon Dioxide Anion Gap BUN Creatinine Est Cr Clr Drug Dosing Est GFR ( Amer) Est GFR (Non-Af Amer) BUN/Creatinine Ratio Glucose POC Glucose Calcium Magnesium Total Bilirubin AST ALT Alkaline Phosphatase Troponin I High Sens 20.4 H Total Protein Albumin Globulin Albumin/Globulin Ratio TSH 06/16/23 06/16/23 06/16/23 03:14 07:23 07:56 WBC RBC Hgb Hct MCV MCH MCHC RDW Std Deviation RDW Coeff of Jenn Plt Count MPV Immature Gran % (Auto) Neut % (Auto) Lymph % (Auto) [place] % (Auto) Eos % (Auto) Baso % (Auto) Neut # (Auto) Lymph # (Auto) [place] # (Auto) Eos # (Auto) Baso # (Auto) Immature Gran # (Auto) PT INR APTT 66.3 H* PTT Ratio 2.4 Sodium 139 Potassium 3.7 Chloride 108 H Carbon Dioxide 25 Anion Gap 6 BUN 21 Creatinine 1.15 D Est Cr Clr Drug Dosing 101.6 Est GFR ( Amer) 84.3 Est GFR (Non-Af Amer) 72.8 BUN/Creatinine Ratio 18.3 Glucose 110 H POC Glucose 163 H Calcium 9.0 Magnesium 1.9 Total Bilirubin AST ALT Alkaline Phosphatase Troponin I High Sens Total Protein Albumin Globulin Albumin/Globulin Ratio TSH 06/16/23 06/16/23 09:22 11:41 WBC RBC Hgb Hct MCV MCH MCHC RDW Std Deviation RDW Coeff of Jenn Plt Count MPV Immature Gran % (Auto) Neut % (Auto) Lymph % (Auto) [place] % (Auto) Eos % (Auto) Baso % (Auto) Neut # (Auto) Lymph # (Auto) [place] # (Auto) Eos # (Auto) Baso # (Auto) Immature Gran # (Auto) PT INR APTT PTT Ratio Sodium Potassium Chloride Carbon Dioxide Anion Gap BUN Creatinine Est Cr Clr Drug Dosing Est GFR ( Amer) Est GFR (Non-Af Amer) BUN/Creatinine Ratio Glucose POC Glucose 112 H Calcium Magnesium Total Bilirubin AST ALT Alkaline Phosphatase Troponin I High Sens 12.3 D Total Protein Albumin Globulin Albumin/Globulin Ratio TSH Diagnostic Findings Chest x-ray obtained on admission did not reveal any acute cardiopulmonary process Echocardiogram performed 06/16/2023: Moderately reduced LV systolic function with ejection fraction 40%. Mild LVH. Mild to moderate hypokinesis. Moderately reduced RV systolic function. Mild to moderate mitral regurgitation. PG Care Time/CCT Total # of Minutes Spent Total Time Spent with Patient: Total time spent is greater than 50% in coordination of care (as documented) at patient's floor/unit and/or counseling patient: Coding Level of Care Code 89703 INT INP/OBS CARE 3/75MIN Diagnoses Atrial flutter with rapid ventricular response I48.92 Paroxysmal atrial fibrillation I48.0 Cardiomyopathy I42.9 Mitral regurgitation I34.0
--- NOTE | 2023-06-16 17:45 | Electrocardiogram Report ---
Test Reason : Blood Pressure : / mmHG Vent. Rate : 122 BPM Atrial Rate : 244 BPM P-R Int : 000 ms QRS Dur : 102 ms QT Int : 326 ms P-R-T Axes : 084 083 062 degrees QTc Int : 464 ms Atrial flutter with 2:1 A-V conduction Abnormal ECG When compared with ECG of 23-MAR-2023 15:23, (unconfirmed) Atrial flutter has replaced Sinus rhythm Vent. rate has increased BY [address] now depressed in Inferior leads T wave inversion now evident in Inferior leads Confirmed by Massimo Duarte ([id number] on 06/16/2023 5:45:06 PM Referred By: REFERRED SELF Confirmed By:Nehemias Duarte
[2023-06-16] MEDS ORDERED: dilTIAZem HCl 5 MG/ML 5 ML VIAL IV STA (19:16)
[2023-06-16] MEDS ORDERED: STAT IV Infusion **Titration per Protocol STA (19:16)
[2023-06-16] MEDS: dilTIAZem HCL 125 MG in DEXTROSE 5% 100 ML IV SCH (20:15)
[2023-06-16] MEDS: RIVAROXABAN 20 MG TAB PO SCH (20:16)
[2023-06-16] MEDS: traZODone HCL 50 MG TAB PO SCH (20:20)
--- NOTE | 2023-06-16 22:15 | Hospitalist Progress Note ---
Date of Service June 16, 2023 Assessment & Plan (1) Atrial flutter with rapid ventricular response: Plan: -Atrial flutter with RVR noted on EKG and monitor with HR 200+ s/p adenosine, Valsalva and Lopressor 5 mg IV -Currently sinus rhythm with HR ~120, normotensive -Negative troponin without any chest pain at present- will obtain repeat troponin and trend to peak -Maintain K > 4, Mg > 2 -[id number] score of 2, not on anticoagulation as outpatient- will continue heparin for anticoagulation at present -Repeat TTE obtainted. -Last TTE 10/2021 unremarkable- EF 60-65% -flecainide stopped due to lower EF, Toprol XL 100 mg daily -May repeat Lopressor should pt return to atrial flutter/fibrillation with uncontrolled rate -Telemetry monitoring -Cardiology consult apprecaited, cardioversion on Monday. (2) Paroxysmal atrial fibrillation: Plan: -As above, history of atrial fibrillation +/- atrial flutter (3) SHANNON (acute kidney injury): Plan: -Cr 1.69 on admission -Likely pre-renal from dehydration -Continue LR fluid repletion -Trend BMP (4) Leukocytosis: Plan: -WBC 12.7 on admission -Pt's symptoms do not suggest infectious cause and afebrile, suspect this may be stress/demargination leukocytosis from AF w/ RVR (5) Diabetes: Plan: -A1C 8.6% in 03/2022 -Holding home metformin + glimepiride -Lantus, SSI + BSG ACHS (6) Hypertension: Plan: -BP stable -Continue Toprol, (7) Depression with anxiety: Plan: -Continue Cymbalta -Continue Klonopin PRN (8) Insomnia: Plan: -Continue trazodone Plan FENGI: DM2, NPO after midnight Code status: Full DVT prophylaxis: Heparin Isolation: None Disposition: PCU Admission and Anticipated Discharge Date Admission Date: June 15, 2023 Subjective Patient reports no new symptoms. Review of Systems Review of Systems: All systems reviewed & are unremarkable except as noted in HPI & below Physical Exam Physical Exam: General: well-appearing, no acute distress HEENT: PERRL, EOMI Neck: supple, trachea midline, no thyromegaly, no JVD, no cervical lymphadenopathy CV: tachycardic, normal S1 and S2, no murmurs Resp: CTAB, no increased work of breathing, no crackles or wheezes Abd: Soft, nontender, nondistended, no guarding or rebound, no hepatosplenomegaly MSK: Normal bulk of all four extremities Neuro: AOx3, no focal motor or sensory deficits Skin: no rashes or lesions, warm and dry Ext: no LE peripheral edema or erythema, capillary refill <2s in all four extremities, 2+ LE peripheral pulses b/l Results & Data Results & Data Vital Signs (Past 12 Hours) Vital Signs Temp Pulse Pulse Resp BP BP Pulse Ox 06/16/23 20:13 36.7 C 110 H 16 120/80 95 06/16/23 19:13 36.7 C 101 H 18 120/80 93 06/16/23 15:56 110 H 06/16/23 15:59 36.5 C 116 H 17 127/88 94 06/16/23 12:02 36.5 C 124 H 18 120/87 97 O2 Del Method 06/16/23 20:13 Room Air 06/16/23 19:13 Room Air 06/16/23 15:56 06/16/23 15:59 Room Air 06/16/23 12:02 Room Air PG Care Time/CCT Total # of Minutes Spent Total Time Spent with Patient: Total time spent is greater than 50% in coordination of care (as documented) at patient's floor/unit and/or counseling patient: Coding Level of Care Code 57206 SUB INP/OBS CARE 2/35MIN Diagnoses Atrial flutter with rapid ventricular response I48.92 Paroxysmal atrial fibrillation I48.0 SHANNON (acute kidney injury) N17.9 Leukocytosis D72.829 Diabetes E11.9 Hypertension I10 Hypertension type: primary hypertension Depression with anxiety F41.8 Insomnia G47.00 (6) Hypertension Hypertension type: primary hypertension Qualified Code(s): I10 - Essential (primary) hypertension
[2023-06-17 06:23] LABS: Hematocrit (blood only) 42.5 % (42.0-52.0); Hemoglobin 14.8 g/dl (14.0-18.0); Mean Corpuscular Hemoglobin 30.4 pg (25.0-34.0); Mean Corpuscular Hgb Conc 34.8 g/dL (32.0-36.0); Mean Corpuscular Volume 87.3 fL (80.0-100.0); Mean Platelet Volume 11.5 fL (9.4-12.4); Platelet Count 146 K/uL (130-400); RDW Coefficient of Variation 12.1 % (11.5-14.5); RDW Standard Deviation 38.8 fL (36.4-46.3); Red Blood Count 4.87 M/uL (4.70-6.10)
[2023-06-17 06:44] LABS: BUN Creatinine Ratio 17.5 (10-20); Calcium 9.2 mg/dl (8.6-10.3); Creatinine Clr Calc Pharmacy 119.4 ml/min; Est GFR (African American) 103.6 ml/min; Est GFR (Non-African American) 89.4 ml/min; Potassium 4.1 mmol/L (3.5-5.1)
[2023-06-17] MEDS: METOPROLOL SUCC 50MG EXT REL TAB PO SCH (08:18)
[2023-06-17] MEDS: DULoxetine HCL 60 MG CAP PO SCH ×2 (08:18→21:18)
[2023-06-17] MEDS: INSULIN ASPART PER UNIT CHARGE SC SCH ×4 (09:18→20:35)
[2023-06-17] MEDS: LANTUS PER UNIT CHARGE SQ SCH ×2 (09:18→21:17)
--- NOTE | 2023-06-17 14:29 | Hospitalist Progress Note ---
Date of Service June 17, 2023 Assessment & Plan (1) Atrial flutter with rapid ventricular response: Plan: -Atrial flutter with RVR noted on EKG and monitor with HR 200+ s/p adenosine, Valsalva and Lopressor 5 mg IV -Currently sinus rhythm with HR ~120, normotensive -Negative troponin without any chest pain at present- will obtain repeat troponin and trend to peak -Maintain K > 4, Mg > 2 -[id number] score of 2, not on anticoagulation as outpatient- will continue heparin for anticoagulation at present -Repeat TTE obtainted. -Last TTE 10/2021 unremarkable- EF 60-65% -flecainide stopped due to lower EF, Toprol XL 100 mg daily -Diltiazem placed -May repeat Lopressor should pt return to atrial flutter/fibrillation with uncontrolled rate -Telemetry monitoring -Cardiology consult appreciated, cardioversion on Monday. HR appears to be better today. (2) Paroxysmal atrial fibrillation: Plan: -As above, history of atrial fibrillation +/- atrial flutter (3) SHANNON (acute kidney injury): Plan: -Cr 1.69 on admission -Likely pre-renal from dehydration -Continue LR fluid repletion -Trend BMP (4) Leukocytosis: Plan: -WBC 12.7 on admission -Pt's symptoms do not suggest infectious cause and afebrile, suspect this may be stress/demargination leukocytosis from AF w/ RVR (5) Diabetes: Plan: -A1C 8.6% in 03/2022 -Holding home metformin + glimepiride -Lantus, SSI + BSG ACHS (6) Hypertension: Plan: -BP stable -Continue Toprol, (7) Depression with anxiety: Plan: -Continue Cymbalta -Continue Klonopin PRN (8) Insomnia: Plan: -Continue trazodone Plan FENGI: DM2, Code status: Full DVT prophylaxis: Heparin Isolation: None Disposition: PCU Admission and Anticipated Discharge Date Admission Date: June 16, 2023 Subjective Patient reports no new symptoms. Review of Systems Review of Systems: All systems reviewed & are unremarkable except as noted in HPI & below Physical Exam Physical Exam: General: well-appearing, no acute distress HEENT: PERRL, EOMI Neck: supple, trachea midline, no thyromegaly, no JVD, no cervical lymphadenopathy CV: tachycardic, normal S1 and S2, no murmurs Resp: CTAB, no increased work of breathing, no crackles or wheezes Results & Data Results & Data Vital Signs (Past 12 Hours) Vital Signs Temp Pulse Pulse Resp BP Pulse Ox O2 Del Method 06/17/23 11:42 36.6 C 92 H 17 112/80 96 Room Air 06/17/23 09:58 96 H 06/17/23 07:52 36.5 C 98 H 17 113/77 95 Room Air 06/17/23 04:25 36.3 C L 88 18 138/85 96 PG Care Time/CCT Total # of Minutes Spent Total Time Spent with Patient: Total time spent is greater than 50% in coordination of care (as documented) at patient's floor/unit and/or counseling patient: Coding Level of Care Code 55074 SUB INP/OBS CARE 2/35MIN Diagnoses Atrial flutter with rapid ventricular response I48.92 Paroxysmal atrial fibrillation I48.0 SHANNON (acute kidney injury) N17.9 Leukocytosis D72.829 Diabetes E11.9 Hypertension I10 Hypertension type: primary hypertension Depression with anxiety F41.8 Insomnia G47.00 (6) Hypertension Hypertension type: primary hypertension Qualified Code(s): I10 - Essential (primary) hypertension
[2023-06-17] MEDS: RIVAROXABAN 20 MG TAB PO SCH (17:18)
[2023-06-17] MEDS: dilTIAZem HCL 125 MG in DEXTROSE 5% 100 ML IV SCH (19:35)
[2023-06-17] MEDS: traZODone HCL 50 MG TAB PO SCH (21:17)
[2023-06-18] MEDS: DULoxetine HCL 60 MG CAP PO SCH ×2 (09:03→20:53)
[2023-06-18] MEDS: METOPROLOL SUCC 50MG EXT REL TAB PO SCH (09:03)
[2023-06-18] MEDS: INSULIN ASPART PER UNIT CHARGE SC SCH ×4 (09:06→20:52)
[2023-06-18] MEDS: LANTUS PER UNIT CHARGE SQ SCH ×2 (09:08→20:52)
[2023-06-18] MEDS: FAMOTIDINE 20 MG TAB PO SCH ×2 (10:14→20:53)
[2023-06-18] MEDS: RIVAROXABAN 20 MG TAB PO SCH (17:48)
[2023-06-18] MEDS: dilTIAZem HCL 125 MG in DEXTROSE 5% 100 ML IV SCH (20:52)
[2023-06-18] MEDS: traZODone HCL 50 MG TAB PO SCH (20:53)
--- NOTE | 2023-06-18 21:59 | Hospitalist Progress Note ---
Date of Service June 18, 2023 Assessment & Plan (1) Atrial flutter with rapid ventricular response: Plan: -Atrial flutter with RVR noted on EKG and monitor with HR 200+ s/p adenosine, Valsalva and Lopressor 5 mg IV -Currently sinus rhythm with HR ~120, normotensive -Negative troponin without any chest pain at present- will obtain repeat troponin and trend to peak -Maintain K > 4, Mg > 2 -[id number] score of 2, not on anticoagulation as outpatient- will continue heparin for anticoagulation at present -Repeat TTE obtainted. -Last TTE 10/2021 unremarkable- EF 60-65% -flecainide stopped due to lower EF, Toprol XL 100 mg daily -Diltiazem placed -May repeat Lopressor should pt return to atrial flutter/fibrillation with uncontrolled rate -Telemetry monitoring -Cardiology consult appreciated, cardioversion on Monday. HR continues to be controlled. (2) Paroxysmal atrial fibrillation: Plan: -As above, history of atrial fibrillation +/- atrial flutter (3) SHANNON (acute kidney injury): Plan: -Cr 1.69 on admission -Likely pre-renal from dehydration -Continue LR fluid repletion -improved. (4) Leukocytosis: Plan: -WBC 12.7 on admission -Pt's symptoms do not suggest infectious cause and afebrile, suspect this may be stress/demargination leukocytosis from AF w/ RVR (5) Diabetes: Plan: -A1C 8.6% in 03/2022 -Holding home metformin + glimepiride -Lantus, SSI + BSG ACHS (6) Hypertension: Plan: -BP stable -Continue Toprol, (7) Depression with anxiety: Plan: -Continue Cymbalta -Continue Klonopin PRN (8) Insomnia: Plan: -Continue trazodone Plan FENGI: DM2, Code status: Full DVT prophylaxis: Heparin Admission and Anticipated Discharge Date Admission Date: June 16, 2023 Subjective Patient reports doing well. He has no new complaints. Review of Systems Review of Systems: All systems reviewed & are unremarkable except as noted in HPI & below Physical Exam Physical Exam: General: well-appearing, no acute distress HEENT: PERRL, EOMI Neck: supple, trachea midline, no thyromegaly, no JVD, no cervical lymphadenopathy CV: tachycardic, normal S1 and S2, no murmurs Resp: CTAB, no increased work of breathing, no crackles or wheezes Results & Data Results & Data Vital Signs (Past 12 Hours) Vital Signs Temp Pulse Resp BP BP Pulse Ox O2 Del Method 06/18/23 19:57 36.6 C 63 16 110/70 98 Room Air 06/18/23 15:49 36.6 C 85 17 123/81 95 Room Air 06/18/23 11:42 36.6 C 84 18 104/68 94 Room Air PG Care Time/CCT Total # of Minutes Spent Total Time Spent with Patient: Total time spent is greater than 50% in coordination of care (as documented) at patient's floor/unit and/or counseling patient: Coding Level of Care Code 36805 SUB INP/OBS CARE 2/35MIN Diagnoses Atrial flutter with rapid ventricular response I48.92 Paroxysmal atrial fibrillation I48.0 SHANNON (acute kidney injury) N17.9 Leukocytosis D72.829 Diabetes E11.9 Hypertension I10 Hypertension type: primary hypertension Depression with anxiety F41.8 Insomnia G47.00 (6) Hypertension Hypertension type: primary hypertension Qualified Code(s): I10 - Essential (primary) hypertension
[2023-06-19 06:49] LABS: Hematocrit (blood only) 47.4 % (42.0-52.0); Hemoglobin 16.6 g/dl (14.0-18.0); Mean Corpuscular Hemoglobin 30.5 pg (25.0-34.0); Mean Corpuscular Volume 87.1 fL (80.0-100.0); Mean Platelet Volume 11.8 fL (9.4-12.4); Platelet Count 156 K/uL (130-400); RDW Coefficient of Variation 12.2 % (11.5-14.5); RDW Standard Deviation 38.7 fL (36.4-46.3); Red Blood Count 5.44 M/uL (4.70-6.10); White Blood Count 12.97 K/ul (4.8-10.8)
[2023-06-19 06:53] LABS: BUN Creatinine Ratio 17.3 (10-20); Calcium 9.5 mg/dl (8.6-10.3); Creatinine Clr Calc Pharmacy 110.1 ml/min; Est GFR (African American) 95.2 ml/min; Est GFR (Non-African American) 82.2 ml/min; Magnesium 1.9 mg/dl (1.7-2.4); Phosphorus 3.4 mg/dl (2.5-4.9); Potassium 4.4 mmol/L (3.5-5.1)
[2023-06-19] MEDS ORDERED: BENZOCAINE/TETRACAIN/BUTAM 50 APPLN/5 GM CAN EXT ONE (07:07)
--- NOTE | 2023-06-19 07:38 | Anesthesiology Consultation ---
Date of Service June 19, 2023 Assessment & Plan Chart Review Chart Review: Acceptable Risk for Surgery Consults Requested none History Surgery Operation Date: 06/19/23 07:30 Proposed Procedures p Transesophageal Echo w/Anesthesia - Massimo Duarte MD s Cardioversion Shaping Machine Operator w/Anesthesia - Massmio Duarte MD Height/Weight Height: 6 ft 3 in Weight: 107.4 kg Allergies Allergy/AdvReac Type Severity Reaction Status Date / Time Sulfa (Sulfonamide Allergy Intermediate Hives Verified 05/15/23 08:43 Antibiotics) Medications Home Medications Medication Instructions Recorded Confirmed Last Taken cholecalciferol (vitamin D3) 25 2,000 units PO DAILY 06/05/19 06/15/23 10/11/21 mcg (1,000 unit) tablet (Vitamin D3) albuterol sulfate 90 mcg/actuation 2 puffs inhalation .COMPLEX PRN 01/08/20 06/15/23 Unknown aerosol inhaler (Ventolin HFA) shortness of breath or wheezing #18 grams vitamin A-vitamin C-vit E-min 2 tab PO DAILY 02/19/21 06/15/23 10/11/21 tablet sildenafil 100 mg tablet 50 mg PO DAILY PRN sexual activity 10/11/21 06/15/23 Unknown metformin 500 mg tablet,extended 1,000 mg PO QAM #180 tabs 03/28/22 06/15/23 Unknown release 24 hr glimepiride 4 mg tablet 4 mg PO DAILY #90 tabs 10/24/22 06/15/23 Unknown metoprolol succinate 100 mg 100 mg PO DAILY #90 tabs 12/15/22 06/15/23 Unknown tablet,extended release 24 hr trazodone 50 mg tablet 50 mg PO HS #90 tabs 01/10/23 06/15/23 Unknown duloxetine 60 mg capsule,delayed 60 mg PO BID #60 caps 05/15/23 06/15/23 Unknown release flecainide 100 mg tablet 100 mg PO Q12H #60 tabs 05/15/23 06/15/23 Unknown clonazepam 0.5 mg tablet 0.5 mg PO BID PRN Anxiety #60 tabs 05/29/23 06/15/23 Unknown Active Medications Generic Name Dose Route Start Last Admin Trade Name Freq PRN Reason Stop Dose Admin Clonazepam 0.5 mg 06/15/23 21:19 06/18/23 09:08 Clonazepam 0.5 Mg Tab PO 07/15/23 21:18 0.5 mg BID PRN Administration Anxiety Duloxetine HCl 60 mg 06/15/23 22:00 06/18/23 20:53 Duloxetine Hcl 60 Mg Cap PO 07/15/23 21:59 60 mg BID KATY Administration Famotidine 20 mg 06/18/23 09:45 06/18/23 20:53 Famotidine 20 Mg Tab PO 07/18/23 09:44 20 mg BID KATY Administration Diltiazem HCl 125 mg/ Dextrose 125 mls @ 5 mls/hr 06/16/23 19:30 06/18/23 20:52 IV 07/16/23 19:29 5 mg/hr .Q24H KATY 5 mls/hr Administration Protocol 5 MG/HR Insulin Aspart 0 units 06/15/23 22:00 06/18/23 20:52 Insulin Aspart Per Unit Charge SC 07/15/23 21:59 1 units ACHS KATY Administration Insulin Glargine 5 units 06/15/23 22:00 06/18/23 20:52 Lantus Per Unit Charge SQ 07/15/23 21:59 5 units BID KATY Administration Metoprolol Succinate 100 mg 06/16/23 09:00 06/18/23 09:03 Metoprolol Succ 50mg Ext Rel Tab PO 07/16/23 08:59 100 mg DAILY KATY Administration Rivaroxaban 20 mg 06/16/23 19:30 06/18/23 17:48 Rivaroxaban 20 Mg Tab PO 07/16/23 19:29 20 mg QDD KATY Administration Trazodone HCl 50 mg 06/15/23 21:19 06/18/23 20:53 Trazodone Hcl 50 Mg Tab PO 07/15/23 21:18 50 mg HS KATY Administration Past Medical History Medical History Anticoagulant long-term use now off Eliquis, monitored by Cardiology Diabetes NIDDM Fatigue GERD (gastroesophageal reflux disease) CONTROLLED Hiatal hernia Inguinal hernia Mild concussion 12/27 Multiple rib fractures 12/27 Obesity Palpitations Past Family History Family History Mother Family history of diabetes mellitus Grandmother Family history of diabetes mellitus Denies family history of Ovarian cancer Prostate cancer Myocardial infarction Breast cancer Colorectal cancer Past Surgical History Surgical History History of arthroscopy RT/LEFT KNEE History of esophagogastroduodenoscopy (EGD) Hx of vasectomy Social History Smoking Status: Current every day smoker tobacco type: cigarettes Smoking cigarettes per day: 20 Do You Dip or Chew Tobacco: No Hx Alcohol Use: No Alcohol type: beer alcohol intake frequency: holidays/special occasions only Hx Substance Use: No substance use type: does not use Physical Exam Vital Signs Last Vital Signs Temp 36.4 C L 06/19/23 03:37 Pulse 82 06/19/23 07:12 Resp 14 06/19/23 07:02 BP 109/87 06/19/23 07:02 Pulse Ox 95 06/19/23 07:02 O2 Del Method Room Air 06/19/23 07:02 Testing Laboratory Results 06/19/23 06:09 06/19/23 06:09 PT 11.4 Seconds (9.0-12.0) 06/15/23 17:00 INR 1.0 (0.9-1.1) 06/15/23 17:00 APTT 66.3 Seconds (21.0-31.0) H* 06/16/23 07:23 06/18/23 20:38 POC Glucose 168 H
--- NOTE | 2023-06-19 07:51 | Cardioversion ---
Date of Service June 19, 2023 PG Electrical Cardioversion Rp Electrical Cardioversion Report Procedure performed: Cardioversion Indication: Atrial flutter Staff cigar head piercer: Massimo Duarte MD Procedure in detail: The patient was informed of the risks benefits and alternatives to the intended procedure. He understood such which proceed. He was taken to the cardiac catheterization suite holding area. A general anesthetic was administered by the Anesthesiology Service. Once appropriately anesthetized, the patient was cardioverted using 50 joules delivered in a biphasic fashion. This returned the patient to sinus rhythm. The patient tolerated procedure well, there were no immediate complications. Patient was neurologically intact subsequent to the procedure. Impression: Successful cardioversion from atrial flutter to normal sinus rhythm Coding Level of Care Code 71459 CARDIOVERSION, ELECTIVE Additional Codes Electrical Cardioversion Report ([id number])
--- NOTE | 2023-06-19 08:29 | Anesthesiology Progress Note ---
Date of Service June 19, 2023 Anesthesia Post Procedure Vital Signs Vital Signs: Temp Pulse Pulse Pulse Resp BP BP 06/19/23 08:10 60 18 103/78 06/19/23 07:55 60 18 109/74 06/19/23 07:12 82 06/19/23 07:02 101 H 14 109/87 06/19/23 03:37 36.4 C L 68 18 94/57 L 06/18/23 23:00 36.9 C 90 16 99/68 L 06/18/23 22:00 90 06/18/23 19:57 36.6 C 63 16 110/70 06/18/23 15:49 36.6 C 85 17 123/81 06/18/23 11:42 36.6 C 84 18 104/68 Pulse Ox O2 Del Method 06/19/23 08:10 97 Room Air 06/19/23 07:55 97 Room Air 06/19/23 07:12 06/19/23 07:02 95 Room Air 06/19/23 03:37 93 Room Air 06/18/23 23:00 93 Room Air 06/18/23 22:00 06/18/23 19:57 98 Room Air 06/18/23 15:49 95 Room Air 06/18/23 11:42 94 Room Air Pain Intensity Chest: Pain Intensity: 1 Transfer of Care Handoff Completed per policy Notes Mental Status: alert / awake / arousable and participated in evaluation Patient Amnestic to Procedure: Yes Nausea / Vomiting: adequately controlled Pain: adequately controlled Airway Patency, RR, SpO2: stable & adequate BP & HR: stable & adequate Hydration State: stable & adequate Anesthetic Complications: no major complications apparent
[2023-06-19] MEDS: INSULIN ASPART PER UNIT CHARGE SC SCH ×2 (10:06→13:27)
[2023-06-19] MEDS: DULoxetine HCL 60 MG CAP PO SCH (10:23)
[2023-06-19] MEDS: FAMOTIDINE 20 MG TAB PO SCH (10:23)
[2023-06-19] MEDS: LANTUS PER UNIT CHARGE SQ SCH (10:25)
[2023-06-19] MEDS: METOPROLOL SUCC 50MG EXT REL TAB PO SCH (10:26)
--- NOTE | 2023-06-19 10:31 | Cardiology Progress Note ---
Date of Service June 19, 2023 Assessment & Plan (1) Atrial flutter with rapid ventricular response: (2) Paroxysmal atrial fibrillation: (3) Cardiomyopathy: (4) Mitral regurgitation: Plan 1. Atrial flutter: He underwent successful cardioversion this morning. Samir did not demonstrate any thrombus in the left atrial appendage. He would benefit from catheter based therapy for a cure. However, in the setting of atrial fibrillation, he would be better served by a combined procedure that also involved pulmonary vein isolation. In order to prevent recurrence in the short term, I will ask him to start amiodarone. This is clearly not a good long-term solution for this young individual, but flecainide was ineffective. I would consider this a bridge to ablation. He will need to continue on Xarelto indefinitely. 2. Atrial fibrillation: He has a reported history of atrial fibrillation as well. We will start on amiodarone, refer for catheter based therapy and continue Xarelto. 3. Cardiomyopathy: Very possibly rate related. Hopefully with a returned to sinus rhythm and some time we will see resolution of the LV dysfunction. Will continue him on metoprolol succinate. No more flecainide. 4. Mitral regurgitation: Mild to moderate. This can be monitored over time. Possibly worse due to his current LV dysfunction I think it would be safe for discharge today. As noted above we will send a referral for catheter based therapy. Start on amiodarone and continue systemic anticoagulation. Given the bradycardia often induced by amiodarone I think reducing his metoprolol to 50 mg daily would be reasonable Admission and Anticipated Discharge Date Admission Date: June 16, 2023 Subjective This morning the patient claimed he feeling well. He reports ambulating around the room over the course of the weekend without limiting dyspnea, dizziness or chest pain. Review of Systems Review of Systems: Per HPI Physical Exam Physical Exam: The patient is alert and oriented. Mood and affect appeared normal. He answered all questions appropriately. HEENT: Pupils are equal and reactive to light and accommodation. Extraocular movements are intact. The sclerae are anicteric. Neuro: Cranial nerves intact Lungs: Clear to auscultation bilaterally. He has good air movement without use of accessory muscles. No rales wheezes or rhonchi. Cardiac: Heart demonstrates a regular rhythm but elevated rate. Normal S1 and S2. No murmurs on examination. Pulses: The patient has palpable radial pulses bilaterally that are equal in intensity Extremities: There was no evidence of hypoperfusion. There is no cyanosis or clubbing. There is no edema. Skin: I did not appreciate any rashes on examination today. Results & Data Vital Signs (Past 12 Hours) Vital Signs Temp Pulse Pulse Pulse Resp BP BP 06/19/23 09:52 59 L 103/69 06/19/23 09:32 60 102/65 06/19/23 09:08 57 L 107/71 06/19/23 08:35 36.9 C 58 L 14 136/86 06/19/23 08:25 60 18 110/72 06/19/23 08:10 60 18 103/78 06/19/23 07:55 60 18 109/74 06/19/23 07:12 82 06/19/23 07:02 101 H 14 109/87 06/19/23 03:37 36.4 C L 68 18 94/57 L 06/18/23 23:00 36.9 C 90 16 99/68 L Pulse Ox O2 Del Method 06/19/23 09:52 97 Room Air 06/19/23 09:32 94 Room Air 06/19/23 09:08 94 Room Air 06/19/23 08:35 90 Room Air 06/19/23 08:25 96 Room Air 06/19/23 08:10 97 Room Air 06/19/23 07:55 97 Room Air 06/19/23 07:12 06/19/23 07:02 95 Room Air 06/19/23 03:37 93 Room Air 06/18/23 23:00 93 Room Air Laboratory Results Abnormal Lab Results 06/18/23 06/18/23 06/18/23 11:56 16:52 20:38 WBC RBC Hgb Hct MCV MCH MCHC RDW Std Deviation RDW Coeff of Jenn Plt Count MPV Sodium Potassium Chloride Carbon Dioxide Anion Gap BUN Creatinine Est Cr Clr Drug Dosing Est GFR ( Amer) Est GFR (Non-Af Amer) BUN/Creatinine Ratio Glucose POC Glucose 153 H 143 H 168 H Calcium Phosphorus Magnesium 06/19/23 06/19/23 06/19/23 06:09 06:09 08:42 WBC 12.97 H RBC 5.44 Hgb 16.6 Hct 47.4 MCV 87.1 MCH 30.5 MCHC 35.0 RDW Std Deviation 38.7 RDW Coeff of Jenn 12.2 Plt Count 156 MPV 11.8 Sodium 138 Potassium 4.4 Chloride 105 Carbon Dioxide 29 Anion Gap 4 BUN 18 Creatinine 1.04 Est Cr Clr Drug Dosing 110.1 Est GFR ( Amer) 95.2 Est GFR (Non-Af Amer) 82.2 BUN/Creatinine Ratio 17.3 Glucose 141 H POC Glucose 158 H Calcium 9.5 Phosphorus 3.4 Magnesium 1.9 PG Care Time/CCT Total # of Minutes Spent Total Time Spent with Patient: Total time spent is greater than 50% in coordination of care (as documented) at patient's floor/unit and/or counseling patient: Coding Level of Care Code 89727 SUB INP/OBS CARE 2/35MIN Diagnoses Atrial flutter with rapid ventricular response I48.92 Paroxysmal atrial fibrillation I48.0 Cardiomyopathy I42.9 Mitral regurgitation I34.0
--- NOTE | 2023-06-19 11:19 | Electrocardiogram Report ---
Test Reason : Blood Pressure : / mmHG Vent. Rate : 083 BPM Atrial Rate : 271 BPM P-R Int : 000 ms QRS Dur : 096 ms QT Int : 402 ms P-R-T Axes : 264 061 065 degrees QTc Int : 472 ms Atrial flutter with variable A-V block Abnormal ECG When compared with ECG of 15-JUN-2023 16:56, ST no longer depressed in Lateral leads Confirmed by Parker Griffith ([id number] on 06/19/2023 11:19:15 AM Referred By: REFERRED SELF Confirmed By:Parker Griffith
[2023-06-19] MEDS ORDERED: AMIODARONE 200 MG TAB PO STA (11:48)
--- NOTE | 2023-06-19 11:50 | Discharge Summary ---
Date of Service June 19, 2023 Admission HPI Per Admitting Provider Pt is 52 yo M with PMH paroxysmal AF/atrial flutter, DM2, HTN, depression, anxiety, tobacco use disorder presenting with palpitations. Pt has had ongoing palpitations for several years but reportedly more frequent over the last few years- multiple episodes of palpitations and rapid heartbeat per week, transient and self-resolving in few minutes, no associated chest pain or syncope. He was admitted at [facility] for this in 10/2021 and received diagnosis of atrial fibrillation and script for Eliquis (discontinued by cardiology shortly after discharge). His palpitations have increased in frequency/duration since 10/2022 and pt underwent several medication changes by cardiology including addition/uptitration of fleicanide and Toprol XL. He was last seen by cardiology in 03/2023 and his fleicanide dose was increased to 100 mg BID. Pt was seen by PCP on 05/12 and HR elevated to 140s (AF w/ RVR) at that visit. Pt reports today around noon he began to have very rapid heartbeat and increased palpitations with more severity than his prior episodes. This persisted without resolution for about 3 hours and was accompanied by dyspnea, lightheadedness, nausea, midsternal 5/10 chest pressure but no overt chest pain or syncope. He did call 911, was given aspirin by EMS and noted to be in SVT with HR 200+ for which he received adenosine. Adenosine failed to resolve his tachycardia but Valsalva resolved SVT rhythm which broke to atrial flutter. Prehospital EKG initially showing narrow complex tachycardia with HR 200+, diffuse ST changes. Repeat prehospital EKG showing atrial flutter at HR 110+ with anterolateral ST elevations. Pt arrived to ER with HR 120s, atrial flutter with 2-1 block, normotensive. Initial evaluation significant for WBC 12.7, K 3.9, Cr 1.7, AST 49, ALT 61. CBC, CMP, Mg otherwise unremarkable. CXR negative. Negative troponin. EKG w/ atrial flutter at HR 122, no overt ST elevations/depressions noted though abnormal ST segments. ER interventions include 1L NSS bolus, Lopressor 5 mg IV, heparin IV. At present, pt reports no chest pain or further palpitations. HR consistently 120s, sinus, at time of my evaluation on monitor. Denies any new complaints aside from 5/10 frontal dull headache. Principal Diagnosis atrial flutter with RVR Discharge Exam General: well-appearing, no acute distress HEENT: PERRL, EOMI Neck: supple, trachea midline, no thyromegaly, no JVD, no cervical lymphadenopathy CV: tachycardic, normal S1 and S2, no murmurs Resp: CTAB, no increased work of breathing, no crackles or wheezes Discharge Data Allergies Allergy/AdvReac Type Severity Reaction Status Date / Time Sulfa (Sulfonamide Allergy Intermediate Hives Verified 05/15/23 08:43 Antibiotics) Consultations 06/15/23 17:55 ED Decision to Admit Stat 06/15/23 21:19 Consult Cardiology Routine Procedures Performed Operation Date: 06/19/23 07:30 Actual Procedures p Echo Transesophageal - Massimo Duarte MD s Echo Color Flow - Massimo Duarte MD s Echo Doppler Complete - Massimo Duarte MD s Cardioversion - Massimo Duarte MD Hospital Course (1) Atrial flutter with rapid ventricular response: -Atrial flutter with RVR noted on EKG and monitor with HR 200+ s/p adenosine, Valsalva and Lopressor 5 mg IV -Currently sinus rhythm with HR ~120, normotensive -Negative troponin without any chest pain at present- will obtain repeat troponin and trend to peak -Maintain K > 4, Mg > 2 -[id number] score of 2, not on anticoagulation as outpatient-startted heparin and transitioned to xarelto. -Last TTE 10/2021 unremarkable- EF 60-65% Now shows moderately decreased EF -flecainide stopped due to lower EF, Toprol XL 100 mg daily -Diltiazem placed prior to cardioversion. Cardioversion completed on day of discharge. WIll discharge on: Amiodarone, beta chayo, xarelto. Anticipate improvement of EF, over time as this was likely due to tachycardia. WIll hold vinny inhibitor. Cardiology will set up ablation as an outpatient. (2) Paroxysmal atrial fibrillation: -As above, history of atrial fibrillation +/- atrial flutter (3) SHANNON (acute kidney injury): -Cr 1.69 on admission -Likely pre-renal from dehydration -Continue LR fluid repletion -improved. (4) Leukocytosis: -WBC 12.7 on admission -Pt's symptoms do not suggest infectious cause and afebrile, suspect this may be stress/demargination leukocytosis from AF w/ RVR (5) Diabetes: -A1C 8.6% in 03/2022 -Holding home metformin + glimepiride -Lantus, SSI + BSG ACHS resume at discharge. (6) Hypertension: -BP stable -Continue Toprol, (7) Depression with anxiety: -Continue Cymbalta -Continue Klonopin PRN (8) Insomnia: -Continue trazodone Total Time Total Time Spent Total Time Spent (In Minutes): 36 Discharge Plan Discharge Items Patient Disposition: Home - Self-Care Reason For Visit: ATRIAL FLUTTER, AF W/ RVR Discharge Diagnosis: atrial flutter Activity: Resume your previous activity Non-emergency contact: Primary Care Provider Call non-emergency contact if: you have any medication questions Follow-up/Referrals: Leandra Goncalves CRNP [Primary Care Provider] - Diet: Carb Consistent or DM2 and Heart Healthy Addtl Attending Provider Instructions: Mr Mahajan, It appears you had a successful cardioversion today. Dr. Duarte recommended in order to prevent recurrence in the short term, to start amiodarone. This is not a good long-term solution for you, but flecainide was ineffective in your case. Consider this a bridge to ablation. You will need to continue on Xarelto indefinitely. Will reduce your metoprolol to 50 mg daily. I sent the new script to the pharmacy. If you still have metoprolol 100 mg tablets, you can cut them in half, just so it does not go to waste. The food safety officer will set up follow-up for your procedures. It was a pleasure. Kindest regards, Donis Boris Pending Studies at Discharge: No Stand-Alone Forms: My [facility] GANTEC, Smoking Cessation Medications and DC Order Prescriptions: New metoprolol succinate 50 mg tablet extended release 24 hr 50 mg PO DAILY Qty: 30 0RF Xarelto 20 mg Tablet 20 mg PO QDD Qty: 30 0RF amiodarone 200 mg tablet See Rx Instructions .ROUTE .COMPLEX Qty: 60 0RF Rx Instructions: Take 400 mg twice a day for 10 days by mouth, then 200 mg once a day. Continued metformin 500 mg tablet extended release 24 hr 1,000 mg PO QAM Qty: 180 3RF glimepiride 4 mg tablet 4 mg PO DAILY Qty: 90 3RF trazodone 50 mg tablet 50 mg PO HS Qty: 90 3RF clonazepam 0.5 mg tablet 0.5 mg PO BID PRN (Reason: Anxiety) Qty: 60 0RF cholecalciferol (vitamin D3) [Vitamin D3] 1,000 unit (25 mcg) tablet 2,000 units PO DAILY albuterol sulfate [Ventolin HFA] 90 mcg/actuation HFA aerosol inhaler 2 puffs INH .COMPLEX PRN (Reason: shortness of breath or wheezing) Qty: 18 1RF Rx Instructions: 2 puff INH Q4-6H PRN; vitamin A-vitamin C-vit E-min Tablet 2 tab PO DAILY duloxetine 60 mg capsule,delayed release(DR/EC) 60 mg PO BID Qty: 60 4RF Rx Instructions: pt aware dose change sildenafil 100 mg tablet 50 mg PO DAILY PRN (Reason: sexual activity) Rx Instructions: 1/2 tab daily PO daily PRN; administer 30 minutes to 4 hours before activity Discontinued metoprolol succinate 100 mg tablet extended release 24 hr 100 mg PO DAILY Qty: 90 3RF flecainide 100 mg tablet 100 mg PO Q12H Qty: 60 2RF Discharge Orders: Discharge Order (Routine); Ordered 06/19/23 Ordered By: Donis Escalante Admission Data Admit Date/Time: 06/16/23 22:14 Attending Provider: Donis Escalante Admit Provider: Ace Allen Primary Care Provider: Leandra Goncalves Other Providers: Rodrick Avalos ; Don Ballesteros ; Rosas Wilson ; Parker Griffith ; Jimi Sarmiento ; Bhavesh Mendoza ; Jose M Hooper Jr ; Carl Deluna ; Page Barnett ; Dania Crawley ; Landon Villeda ; Massimo Duarte ; Molina Schaefer ; Michelle Almendarez ; Gail Macdonald ; Arturo Aranda ; Yakov Watts ; Jimi Cruz V. ; Andrés Estrada Coding Level of Care Code 14886 INP/OBS DISCH >30 MIN Diagnoses Atrial flutter with rapid ventricular response I48.92 Paroxysmal atrial fibrillation I48.0 SHANNON (acute kidney injury) N17.9 Leukocytosis D72.829 Diabetes E11.9 Hypertension I10 Hypertension type: primary hypertension Depression with anxiety F41.8 Insomnia G47.00
--- NOTE | 2023-06-20 13:27 | XCELERA ---
[id number]
--- NOTE | 2023-06-20 14:29 | Electrocardiogram Report ---
Test Reason : Blood Pressure : / mmHG Vent. Rate : 055 BPM Atrial Rate : 055 BPM P-R Int : 180 ms QRS Dur : 100 ms QT Int : 444 ms P-R-T Axes : 032 069 040 degrees QTc Int : 424 ms Sinus bradycardia Otherwise normal ECG When compared with ECG of 18-JUN-2023 12:07, Significant changes have occurred Confirmed by Parker Griffith ([id number]) on 06/20/2023 2:29:13 PM Referred By: REFERRED SELF Confirmed By:Parker Griffith
== END 2023-06-19 14:16 | disposition home or self-care (01) | DRG 309 ==
LOC: EDINP 16:51 → ED 16:51 → SUATTDRO 18:45 → 4W 20:58

== ENCOUNTER 2024-01-29 11:04 | Observation (INO) ==
[2024-01-29 11:35] LABS: Basophils # (auto) 0.04 K/uL (0.00-0.20); Basophils % (auto) 0.3 %; Eosinophils # (auto) 0.09 K/uL (0.00-0.50); Eosinophils % (auto) 0.6 %; Immature Granulocytes # (auto) 0.07 K/uL (0.01-0.20); Immature Granulocytes % (auto) 0.5 %; Lymphocytes # (auto) 3.37 K/uL (1.20-3.40); Lymphocytes % (auto) 22.9 %; Mean Corpuscular Hemoglobin 30.2 pg (25.0-34.0); Mean Corpuscular Hgb Conc 34.8 g/dL (32.0-36.0); Mean Corpuscular Volume 86.8 fL (80.0-100.0); Mean Platelet Volume 10.9 fL (9.4-12.4); Monocytes # (auto) 0.83 K/uL (0.11-0.59); Monocytes % (auto) 5.7 %; Neutrophils # (auto) 10.29 K/uL (1.40-6.50); Platelet Count 220 K/uL (130-400); RDW Coefficient of Variation 12.7 % (11.5-14.5); White Blood Count 14.69 K/ul (4.8-10.8)
--- NOTE | 2024-01-29 11:37 | Emergency Department Note ---
Impression & Plan Left-sided chest pain ED Provider Note HISTORY OF PRESENT ILLNESS: Patient is a 53-year-old male presenting with chest pain and palpitations. Patient reports that earlier this morning he was driving to work when he developed left-sided chest pain described as a pressure sensation. Reports the pain radiating to his left arm. He states that he went to [facility] walk-in clinic and they referred him here for further evaluation. They called EMS and he was given Zofran and aspirin and 3 sublingual nitro and route with EMS. However, on arrival, the patient reports that the pain is still present but has improved. He describes it as a pressure-like sensation in his left chest and into his left arm. He reports feeling lightheaded and nauseous with the symptoms. Denies any significant shortness of breath. He denies ever having pain like this before. He does have a history of A-fib/a flutter and is on Xarelto. Denies any DVT or PE history. Denies any history of cardiac stents. ROS: as above PHYSICAL EXAM: Constitutional: Patient appears in no acute distress. HENT: Head: Normocephalic and atraumatic. Eyes: EOMI, PERRL Mouth/Throat: Mucous membranes moist. Neck: Trachea midline. Neck supple. Cardiovascular: Bradycardic with regular rhythm. No murmurs, rubs or gallops. Intact distal pulses. Pulmonary/Chest: No respiratory distress. Breath sounds clear and equal bilaterally. No wheezes or rales. Abdominal: Abdomen soft, no tenderness, rebound or guarding. Musculoskeletal: No edema, tenderness or deformity noted. Skin: Warm and dry. No rash, erythema, pallor or cyanosis Psychiatric: Appropriate mood and affect for situation. Neurological: Alert and keenly responsive. CN II-XII grossly intact, moving all extremities equally and fully. MDM: - Vitals signs showed bradycardia. - History obtained via patient. History as above. - Chronic conditions affecting care: Afib; GERD - Differential diagnoses include, but are not limited to: Acute coronary syndrome; pulmonary embolism; dissection; tension pneumothorax; esophageal rupture; pneumonia - Order placed for continuous cardiac monitoring. At this time, monitor showed rate of 48 bpm with normal sinus rhythm, per my interpretation. - External medical records reviewed. Primary care visit note dated for today was reviewed. Patient had presented their clinic for chest pain, palpitations, nausea and left arm pain. - EKG interpreted by myself showed normal sinus rhythm. Rate bradycardic at 51 bpm. QT 498. No acute ischemic changes. - Laboratory workup interpreted by myself showed leukocytosis (WBC 14.69) with left shift; stable electrolytes; normal troponin; normal lipase - CXR negative for pneumonia, per my interpretation - Repeat troponin WNL. - CT PE negative for PE or dissection. - Heart score 2 (History +0 slightly suspicious; EKG +0; Age +1; Risk factors +1; Initial troponin +0), amounting to a low score. - Considered CT head wo contrast, but patient has no focal neurological deficits on examination today. He is not complaining of any headache or changes in vision. - Discussed results with patient and his significant other presented. reports that she is uncomfortable taking the patient home, as he has an giovanni on his phone and has been going into episodes of A-fib a day for the last week and his heart rate gets up to the 140s. She reports that now his heart rate is 48 and "something must be going on." I discussed with the patient and his that his cardiac workup in the emergency department is grossly unremarkable. He has no evidence of pneumonia or blood clot. He does have a history of paroxysmal A-fib. However, the feel like the patient has been having intermittent "twinges" of left-sided chest pain while in the emergency department and request admission. - Discussion was had with case checker about need for admission. - Hospitalist consulted for admission - Patient to be admitted to the hospitalist service for further evaluation and management. ASSESSMENT AND PLAN: Diagnosis: left-sided chest pain Plan: admit Past Med/Surg History Medical History Anticoagulant long-term use Mild concussion Multiple rib fractures Inguinal hernia Palpitations Fatigue GERD (gastroesophageal reflux disease) Hiatal hernia Surgical History History of arthroscopy Hx of vasectomy History of esophagogastroduodenoscopy (EGD) Family History Mother Family history of diabetes mellitus Grandmother Family history of diabetes mellitus Denies family history of Ovarian cancer Prostate cancer Myocardial infarction Breast cancer Colorectal cancer Social History Smoking Status: Current every day smoker Tobacco Type: Cigarettes Cigarettes Per Day: 20; Second Hand Exposure: Yes; Do You Dip or Chew Tobacco: No; Hx Alcohol Use: No Hx Substance Use: No Preferred Language: Surinamese Communication Ability: Effective Furniture Painter Required: No Beliefs That Will Affect Care: None marital status: Current Living Situation: Spouse current occupational status: employed How many Children do You have: 4 Feels Safe at Home: Yes Childhood Exposure to Second-Hand Smoke: Yes Diet: regular caffeine: Yes Dental Care, Regularly: No Physical Activity Frequency: Daily Seatbelt Use: sometimes Sunscreen Use: Yes Assistive Devices: None Allergies Allergies Allergy/AdvReac Type Severity Reaction Status Date / Time Sulfa (Sulfonamide Allergy Intermediate Hives Verified 01/29/24 10:29 Antibiotics) metformin AdvReac Diarrhea Verified 01/29/24 10:29 Home Meds Home Medications Medication Instructions Recorded Confirmed cholecalciferol (vitamin D3) 25 2,000 units PO DAILY 06/05/19 10/13/23 mcg (1,000 unit) tablet (Vitamin D3) vitamin A-vitamin C-vit E-min 2 tab PO DAILY 02/19/21 10/13/23 tablet sildenafil 100 mg tablet 50 mg PO DAILY PRN sexual activity 10/11/21 10/13/23 Previous Rx's Medication Instructions Recorded albuterol sulfate 90 mcg/actuation 2 puffs inhalation .COMPLEX PRN 01/08/20 aerosol inhaler (Ventolin HFA) shortness of breath or wheezing #18 grams rivaroxaban 20 mg tablet (Xarelto) 20 mg PO QDD #30 tabs 06/19/23 duloxetine 60 mg capsule,delayed 60 mg PO BID #60 caps 09/15/23 release prednisone 50 mg tablet 50 mg PO DAILY #5 tabs 10/13/23 trazodone 50 mg tablet 50 mg PO HS #90 tabs 10/18/23 glimepiride 4 mg tablet 4 mg PO DAILY #90 tabs 10/30/23 empagliflozin 25 mg tablet 25 mg PO DAILY #30 tabs 11/21/23 clonazepam 0.5 mg tablet 0.5 mg PO BID PRN Anxiety #60 tabs 01/08/24 amiodarone 200 mg tablet 200 mg PO DAILY #100 tabs 01/17/24 metoprolol succinate 50 mg 50 mg PO DAILY #100 tabs 01/17/24 tablet,extended release 24 hr Results & Data (ED) Vital Signs Vital Signs - 24 hr 01/29/24 11:10 01/29/24 11:10 01/29/24 11:10 Temperature 36.9 C Temperature Source Oral Pulse Rate - Lying Pulse Rate - Sitting Pulse Rate - Standing Pulse Rate 52 L 47 L Pulse Rate from SpO2 Sensor Pulse Rhythm Regular Respiratory Rate 18 16 Respiratory Effort / Characteristics Non-Labored Spontaneous Respiratory Depth Normal Blood Pressure - Lying Blood Pressure - Sitting Blood Pressure- Standing Blood Pressure 113/69 Blood Pressure Mean 83 Pulse Oximetry 93 95 Oxygen Delivery Method Room Air Room Air Room Air Sepsis Recent Fever Within 48 Hours No Sepsis New/Unexplained Change in Mental Status No Sepsis Action Taken by Nursing No Action Required 01/29/24 11:13 01/29/24 11:30 01/29/24 11:30 Temperature Temperature Source Pulse Rate - Lying Pulse Rate - Sitting Pulse Rate - Standing Pulse Rate 51 L 47 L Pulse Rate from SpO2 Sensor 50 L 47 L Pulse Rhythm Respiratory Rate 21 15 Respiratory Effort / Characteristics Respiratory Depth Blood Pressure - Lying Blood Pressure - Sitting Blood Pressure- Standing Blood Pressure 117/63 Blood Pressure Mean 85 Pulse Oximetry 91 93 Oxygen Delivery Method Sepsis Recent Fever Within 48 Hours Sepsis New/Unexplained Change in Mental Status Sepsis Action Taken by Nursing 01/29/24 12:00 01/29/24 12:00 01/29/24 12:23 Temperature Temperature Source Pulse Rate - Lying Pulse Rate - Sitting Pulse Rate - Standing Pulse Rate 48 L 46 L Pulse Rate from SpO2 Sensor 48 L Pulse Rhythm Respiratory Rate 13 Respiratory Effort / Characteristics Respiratory Depth Blood Pressure - Lying Blood Pressure - Sitting Blood Pressure- Standing Blood Pressure 120/75 Blood Pressure Mean 86 Pulse Oximetry 95 Oxygen Delivery Method Sepsis Recent Fever Within 48 Hours Sepsis New/Unexplained Change in Mental Status Sepsis Action Taken by Nursing 01/29/24 12:30 01/29/24 12:30 01/29/24 12:52 Temperature Temperature Source Pulse Rate - Lying Pulse Rate - Sitting Pulse Rate - Standing Pulse Rate 46 L Pulse Rate from SpO2 Sensor 47 L Pulse Rhythm Respiratory Rate 16 Respiratory Effort / Characteristics Respiratory Depth Blood Pressure - Lying Blood Pressure - Sitting Blood Pressure- Standing Blood Pressure 122/70 123/70 Blood Pressure Mean 80 91 Pulse Oximetry 96 Oxygen Delivery Method Sepsis Recent Fever Within 48 Hours Sepsis New/Unexplained Change in Mental Status Sepsis Action Taken by Nursing 01/29/24 12:52 01/29/24 12:52 01/29/24 12:54 Temperature Temperature Source Pulse Rate - Lying Pulse Rate - Sitting Pulse Rate - Standing Pulse Rate 49 L 49 L Pulse Rate from SpO2 Sensor 49 L 49 L Pulse Rhythm Respiratory Rate 12 15 Respiratory Effort / Characteristics Respiratory Depth Blood Pressure - Lying Blood Pressure - Sitting Blood Pressure- Standing Blood Pressure 114/63 Blood Pressure Mean 80 Pulse Oximetry 97 98 Oxygen Delivery Method Sepsis Recent Fever Within 48 Hours Sepsis New/Unexplained Change in Mental Status Sepsis Action Taken by Nursing 01/29/24 12:54 01/29/24 12:55 01/29/24 13:00 Temperature Temperature Source Pulse Rate - Lying 47 L Pulse Rate - Sitting 49 L Pulse Rate - Standing 65 Pulse Rate 47 L Pulse Rate from SpO2 Sensor 47 L Pulse Rhythm Respiratory Rate 17 Respiratory Effort / Characteristics Respiratory Depth Blood Pressure - Lying 114/63 Blood Pressure - Sitting 123/70 Blood Pressure- Standing 127/77 Blood Pressure 127/77 Blood Pressure Mean 84 Pulse Oximetry 97 Oxygen Delivery Method Sepsis Recent Fever Within 48 Hours Sepsis New/Unexplained Change in Mental Status Sepsis Action Taken by Nursing 01/29/24 13:00 01/29/24 13:30 01/29/24 13:30 Temperature Temperature Source Pulse Rate - Lying Pulse Rate - Sitting Pulse Rate - Standing Pulse Rate 47 L Pulse Rate from SpO2 Sensor 46 L Pulse Rhythm Respiratory Rate 16 Respiratory Effort / Characteristics Respiratory Depth Blood Pressure - Lying Blood Pressure - Sitting Blood Pressure- Standing Blood Pressure 115/74 117/65 Blood Pressure Mean 86 85 Pulse Oximetry 96 Oxygen Delivery Method Room Air Sepsis Recent Fever Within 48 Hours Sepsis New/Unexplained Change in Mental Status Sepsis Action Taken by Nursing 01/29/24 16:00 Temperature Temperature Source Pulse Rate - Lying Pulse Rate - Sitting Pulse Rate - Standing Pulse Rate 46 L Pulse Rate from SpO2 Sensor Pulse Rhythm Respiratory Rate Respiratory Effort / Characteristics Respiratory Depth Blood Pressure - Lying Blood Pressure - Sitting Blood Pressure- Standing Blood Pressure Blood Pressure Mean Pulse Oximetry Oxygen Delivery Method Sepsis Recent Fever Within 48 Hours Sepsis New/Unexplained Change in Mental Status Sepsis Action Taken by Nursing Laboratory Data 01/29/24 11:13 01/29/24 11:13 Lab Results 01/29/24 01/29/24 Range/Units 11:13 12:42 WBC 14.69 H (4.8-10.8) K/ul RBC 5.30 (4.70-6.10) M/uL Hgb 16.0 (14.0-18.0) g/dl Hct 46.0 (42.0-52.0) % MCV 86.8 (80.0-100.0) fL MCH 30.2 (25.0-34.0) pg MCHC 34.8 (32.0-36.0) g/dL RDW Std Deviation 40.0 (36.4-46.3) fL RDW Coeff of Jenn 12.7 (11.5-14.5) % Plt Count 220 (130-400) K/uL MPV 10.9 (9.4-12.4) fL Immature Gran % (Auto) 0.5 % Neut % (Auto) 70.0 % Lymph % (Auto) 22.9 % Weakley % (Auto) 5.7 % Eos % (Auto) 0.6 % Baso % (Auto) 0.3 % Neut # (Auto) 10.29 H (1.40-6.50) K/uL Lymph # (Auto) 3.37 (1.20-3.40) K/uL Weakley # (Auto) 0.83 H (0.11-0.59) K/uL Eos # (Auto) 0.09 (0.00-0.50) K/uL Baso # (Auto) 0.04 (0.00-0.20) K/uL Immature Gran # (Auto) 0.07 (0.01-0.20) K/uL PT 12.4 H (9.0-12.0) Seconds INR 1.1 (0.9-1.1) Sodium 139 (136-145) mmol/L Potassium 4.1 (3.5-5.1) mmol/L Chloride 106 (98-107) mmol/L Carbon Dioxide 28 (21-32) mmol/L Anion Gap 5 (3-11) BUN 14 (6-23) mg/dl Creatinine 0.95 (0.6-1.4) mg/dl Est Cr Clr Drug Dosing 121.0 ml/min Est GFR ( Amer) 105.5 ml/min Est GFR (Non-Af Amer) 91.0 ml/min BUN/Creatinine Ratio 14.7 (10-20) Glucose 116 H (70-99(Fasting)) mg/dl Calcium 9.4 (8.6-10.3) mg/dl Magnesium 2.0 (1.7-2.4) mg/dl Total Bilirubin 0.4 (0.2-1.0) mg/dl AST 17 (13-39) U/L ALT 22 (7-52) U/L Alkaline Phosphatase 37 (34-104) U/L Troponin I High Sens 5.5 4.9 (0-20) pg/ml Total Protein 6.9 (6.0-8.3) gm/dl Albumin 4.2 (3.4-5.0) gm/dl Globulin 2.7 (2.5-4.0) gm/dl Albumin/Globulin Ratio 1.6 (0.9-2) Lipase 32 (11-82) U/L Administered Medications Discontinued Medications Ioversol (Optiray 320 125ml) 119 ml IV ONCE ONE Stop: 01/29/24 15:42 Last Admin: 01/29/24 15:41 Dose: 119 ml Documented By: [facility] Data Radiologist's Impression: Chest X-Ray 01/29/24 11:06 XR chest 1V portable HISTORY: Chest pain, nonspecific COMPARISON: Chest 06/15/2023. FINDINGS: No pneumothorax. No pleural effusions. The cardiac silhouette is normal in size. No focal lung consolidations to suggest a pneumonia. No evidence for pulmonary edema. Mild elevation the right hemidiaphragm, unchanged. There is an old, healed posterior left third rib fracture. No acute fractures. IMPRESSION: No acute process. ACT 112: Negative or not required by law. Electronically signed by: Barry Pope M.D. 01/29/2024 11:54 AM Chest CTA 01/29/24 14:37 CT angio chest PE protocol CT DOSE: 948.87 mGy.cm HISTORY: 53 years-old Male with PE. Acute shortness of breath TECHNIQUE: Multiple CTA images of the chest were obtained after the intravenous administration of 119 ml Optiray. Coronal and sagittal MIPS were obtained from the axial data set and were submitted for review. All measurements were obtained according to NASCET criteria. A dose lowering technique was utilized adhering to the principles of ALARA. COMPARISON: Chest radiograph of same day, chest CT 10/13/2023 FINDINGS: CTA: Heart is normal in size without pericardial effusion. Moderate coronary artery calcifications. No thoracic aortic aneurysm. No pulmonary emboli identified. The segmental and subsegmental branches are not well seen secondary to respiratory motion. CT CHEST: Unremarkable thyroid. No lymphadenopathy. No pneumothorax, pleural effusion or overt pulmonary edema. Mild pulmonary emphysema with bibasilar subsegmental atelectasis. Several scattered low suspicion solid pulmonary nodules are redemonstrated and appear stable from prior measuring up to 5 mm in the right lower lobe on image 78. No new or enlarging pulmonary nodules identified. The central airways are patent. Mild tracheobronchial secretions. No acute upper abdominal abnormality. Mild nonspecific bilateral perinephric stranding. Gynecomastia. No acute fracture. Benign appearing 1.0 lucent lesion of the anterolateral left 4th rib. IMPRESSION: Unremarkable CTA of the chest. No pulmonary emboli identified. ACT 112: Negative or not required by law. The above report was generated using voice recognition software. It may contain grammatical, syntax or spelling errors. Electronically signed by: Richard Naranjo M.D. 01/29/2024 4:04 PM Discharge Plan Visit Data Chief Complaint: Chest Pain Stated Complaint: CHEST PRESSURE ED Provider: Dee Pereira Discharge Problem: Left-sided chest pain Forms Stand Alone Forms: My [facility] Prescriptions Prescriptions: No Action duloxetine 60 mg capsule,delayed release(DR/EC) 60 mg PO BID Qty: 60 11RF Rx Instructions: pt aware dose change trazodone 50 mg tablet 50 mg PO HS Qty: 90 3RF glimepiride 4 mg tablet 4 mg PO DAILY Qty: 90 3RF empagliflozin 25 mg tablet 25 mg PO DAILY Qty: 30 11RF clonazepam 0.5 mg tablet 0.5 mg PO BID PRN (Reason: Anxiety) Qty: 60 0RF amiodarone 200 mg tablet 200 mg PO DAILY Qty: 100 3RF metoprolol succinate 50 mg tablet extended release 24 hr 50 mg PO DAILY Qty: 100 3RF cholecalciferol (vitamin D3) [Vitamin D3] 1,000 unit (25 mcg) tablet 2,000 units PO DAILY albuterol sulfate [Ventolin HFA] 90 mcg/actuation HFA aerosol inhaler 2 puffs INH .COMPLEX PRN (Reason: shortness of breath or wheezing) Qty: 18 1RF Rx Instructions: 2 puff INH Q4-6H PRN; prednisone 50 mg tablet 50 mg PO DAILY Qty: 5 0RF vitamin A-vitamin C-vit E-min Tablet 2 tab PO DAILY sildenafil 100 mg tablet 50 mg PO DAILY PRN (Reason: sexual activity) Rx Instructions: 1/2 tab daily PO daily PRN; administer 30 minutes to 4 hours before activity Xarelto 20 mg Tablet 20 mg PO QDD Qty: 30 0RF Referrals Referrals: Leandra Goncalves CRNP [Primary Care Provider] -
[2024-01-29 11:52] LABS: Alanine Aminotransferase 22 U/L (7-52); Albumin Globulin Ratio 1.6 (0.9-2); Albumin Level 4.2 gm/dl (3.4-5.0); Alkaline Phosphatase 37 U/L (34-104); Anion Gap 5 (3-11); Aspartate Aminotransferase 17 U/L (13-39); BUN Creatinine Ratio 14.7 (10-20); Bilirubin,Total 0.4 mg/dl (0.2-1.0); Blood Urea Nitrogen 14 mg/dl (6-23); Calcium 9.4 mg/dl (8.6-10.3); Carbon Dioxide 28 mmol/L (21-32); Chloride 106 mmol/L (98-107); Est GFR (African American) 105.5 ml/min; Globulin 2.7 gm/dl (2.5-4.0); Glucose 116 mg/dl (70-99(Fasting)); Lipase 32 U/L (11-82); Potassium 4.1 mmol/L (3.5-5.1); Sodium 139 mmol/L (136-145); Total Protein 6.9 gm/dl (6.0-8.3)
--- NOTE | 2024-01-29 11:56 | XRay Report ---
XR chest 1V portable HISTORY: Chest pain, nonspecific COMPARISON: Chest 06/15/2023. FINDINGS: No pneumothorax. No pleural effusions. The cardiac silhouette is normal in size. No focal l sarah consolidations to suggest a pneumonia. No evidence for pulmonary edema. Mild elevation the right hemidiaphragm, unchanged. There is an old, healed posterior left third rib fracture. No acute fractur es. IMPRESSION: No acute process. ACT 112: Negative or not required by law. Electronically signed by: Barry Pope M.D. 01/29/2024 11:54 AM
[2024-01-29 11:57] LABS: Troponin I High Sensitivity 5.5 pg/ml (0-20)
[2024-01-29 12:01] LABS: INR 1.1 (0.9-1.1); Prothrombin Time 12.4 Seconds (9.0-12.0)
[2024-01-29] MEDS: OPTIRAY 320 125ml IV ONE (15:41)
--- NOTE | 2024-01-29 16:07 | CT Scan Report ---
CT angio chest PE protocol CT DOSE: 948.87 mGy.cm HISTORY: 53 years-old Male with PE. Acute shortness of breath TECHNIQUE: Multiple CTA images of the chest were obtained after the intravenous administration of 119 ml Optiray. Coronal and sagittal MIPS were obtained from the axial data set and were submitted for review. All measurements were obtained according to NASCET criteria. A dose lowering technique was u tilized adhering to the principles of ALARA. COMPARISON: Chest radiograph of same day, chest CT 10/13/2023 FINDINGS: CTA: Heart is normal in size without pericardial effusion. Moderate coronary artery calcifications. No tho racic aortic aneurysm. No pulmonary emboli identified. The segmental and subsegmental branches are no t well seen secondary to respiratory motion. CT CHEST: Unremarkable thyroid. No lymphadenopathy. No pneumothorax, pleural effusion or overt pulmonary edema . Mild pulmonary emphysema with bibasilar subsegmental atelectasis. Several scattered low suspicion s olid pulmonary nodules are redemonstrated and appear stable from prior measuring up to 5 mm in the ri ght lower lobe on image 78. No new or enlarging pulmonary nodules identified. The central airways are patent. Mild tracheobronchial secretions. No acute upper abdominal abnormality. Mild nonspecific bilateral perinephric stranding. Gynecomastia. No acute fracture. Benign appearing 1.0 lucent lesion of the anterolateral left 4th rib. IMPRESSION: Unremarkable CTA of the chest. No pulmonary emboli identified. ACT 112: Negative or not required by law. The above report was generated using voice recognition software. It may contain grammatical, syntax o r spelling errors. Electronically signed by: Richard Naranjo M.D. 01/29/2024 4:04 PM
--- NOTE | 2024-01-29 17:15 | History & Physical Report ---
Date of Service January 29, 2024 Assessment & Plan (1) Left-sided chest pain: Plan: Left-sided chest pressure x 5-6 hours, with radiation down the left arm on 01/28 Resolved in the ED and has not recurred Patient did not take his metoprolol or amiodarone the morning of 01/28, but reports good compliance otherwise Troponin WNL x 2 EKG revealed sinus bradycardia at 53 bpm; QTc 441 Chest CTA revealed no acute pulmonary emboli Continuous telemetry monitoring Clinically, suspect that this was secondary to recurrence/increased frequency of his atrial fibrillation with RVR In the setting of recent GI illness that resolved last week Observation overnight to see if he is truly going into A-fib despite medication use A.m. CBC, BMP (2) Paroxysmal atrial fibrillation: Plan: Patient reports he can tell when he goes in atrial fibrillation with RVR as he develops chest palpitations and SOB Patient had an ablation in September 2023 for his atrial flutter Patient's reports that, this past week, he has been going into A-fib with increased frequency to the point where it almost a daily occurrence Continue Xarelto, metoprolol, amiodarone Cardiology consulted (3) Leukocytosis: Plan: Leukocytosis at 14.69 with a neutrophil predominance; afebrile During prior visits, also had elevated WBC count without a clear etiology; suspected stress response to a. fib previously and likely the same again CXR revealed no acute processes PCT and CRP ordered, pending Trend a.m. CBC (4) Diabetes: Plan: Last A1c at 6.6% on 10/10/2023 Hold glimepiride, empagliflozin SSI; with target BSG range 110-140mg/dL, CF 40, carb ratio 13 T2DM diet BSG ACHS Adjust regimen as needed AM A1c (5) Smoker: Plan: Current everyday tobacco cigarette smoker; <1PPD Nicotine patch as needed Plan Disposition: Obs - PCU with telemetry Full code AHA, T2DM diet VTE PPx: On Xarelto History of Present Illness Chief Complaint: Chest pain Primary Care Provider: DELANO Osei Bahman is a 53-year-old male with PMH of paroxysmal A-fib (on Xarelto), atrial flutter, SVT, cardiomyopathy, depression with anxiety, and cervicalgia. He presented for acute onset of left-sided chest pressure with radiation down the left arm that developed around 0900 on 01/28. Patient was at work at the time, and reports he was walking when the pressure developed. He then noticed that the pressure radiated down his left arm, and led to numbness and tingling in the left fingertips. No radiation to the left jaw or to the back. Patient described it as a constant chest pressure, that he rates 4/10 at its worst. The pressure lasted from 9 AM to 3 PM (approximately 5 to 6 hours). There were no alleviating/aggravating factors. He did note that he could feel heart palpitations similar to when he goes into atrial flutter, but notes that the chest pressure and left arm numbness were new. Also, he typically gets SOB when he develops atrial flutter, but did not feel this today. No prior history of GA. He reports that the nitro in the ambulance did not alleviate his chest pressure. He initially went to [facility] walk-in clinic and was given Zofran and aspirin, and then nitro x 3 via EMS en route. Other than that, patient reports he did not take his regular morning medications; no recent change in medications. He does report good compliance with taking metoprolol and Xarelto on a daily basis besides today. Of note, the patient did have a stomach bug/fever 1 week ago, which resolved. He did not take any additional medications for this. Patient had a cardiac ablation in September for his atrial flutter/A-fib; however he notes that his A-fib has been occurring with increased frequency over the past week, to the point where it is a daily occurrence. Patient is a current tobacco cigarette smoker; <1PPD. No recent alcohol use. Patient is bradycardic at 47 bpm at time of admission; vitals otherwise stable. ED course: ROS: Patient endorses lightheadedness, STANTON, chest palpitations, left-sided chest pain with radiation down the left arm & numbness/tingling in the left arm, nausea, and dry heaves. Patient denies fever, chills, night-sweats, body aches, dizziness, pleuritic CP, SOB, cough, vomiting, diarrhea, change in urinary/bowel habits, blood in urine/stool, burning with urination, or N/T/pain/swellings in the legs. Allergies Allergy/AdvReac Type Severity Reaction Status Date / Time Sulfa (Sulfonamide Allergy Intermediate Hives Verified 01/29/24 10:29 Antibiotics) metformin AdvReac Diarrhea Verified 01/29/24 10:29 Home Medications Medication Instructions Recorded Confirmed Type cholecalciferol (vitamin D3) 25 2,000 units PO DAILY 06/05/19 01/29/24 History mcg (1,000 unit) tablet (Vitamin D3) vitamin A-vitamin C-vit E-min 2 tab PO DAILY 02/19/21 10/13/23 History tablet sildenafil 100 mg tablet 50 mg PO DAILY PRN sexual activity 10/11/21 01/29/24 History rivaroxaban 20 mg tablet (Xarelto) 20 mg PO QDD #30 tabs 06/19/23 01/29/24 Rx duloxetine 60 mg capsule,delayed 60 mg PO BID #60 caps 09/15/23 01/29/24 Rx release trazodone 50 mg tablet 50 mg PO HS #90 tabs 10/18/23 01/29/24 Rx glimepiride 4 mg tablet 4 mg PO DAILY #90 tabs 10/30/23 01/29/24 Rx empagliflozin 25 mg tablet 25 mg PO DAILY #30 tabs 11/21/23 01/29/24 Rx clonazepam 0.5 mg tablet 0.5 mg PO BID PRN Anxiety #60 tabs 01/08/24 01/29/24 Rx amiodarone 200 mg tablet 200 mg PO DAILY #100 tabs 01/17/24 01/29/24 Rx metoprolol succinate 50 mg 50 mg PO DAILY #100 tabs 01/17/24 01/29/24 Rx tablet,extended release 24 hr Past Med/Surg History Medical History Anticoagulant long-term use Mild concussion Multiple rib fractures Inguinal hernia Palpitations Fatigue GERD (gastroesophageal reflux disease) Hiatal hernia Surgical History History of arthroscopy Hx of vasectomy History of esophagogastroduodenoscopy (EGD) Family History Mother Family history of diabetes mellitus Grandmother Family history of diabetes mellitus Denies family history of Ovarian cancer Prostate cancer Myocardial infarction Breast cancer Colorectal cancer Social History Smoking Status: Current every day smoker Tobacco Type: Cigarettes Cigarettes Per Day: 10-12; Second Hand Exposure: No; Do You Dip or Chew Tobacco: No; Tobacco Cessation Education Requested by Patient: No Hx Alcohol Use: Yes Alcohol type: beer and wine Hx Substance Use: No Preferred Language: Syriac Communication Ability: 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 Beliefs That Will Affect Care: None marital status: Current Living Situation: Spouse current occupational status: employed How many Children do You have: 4 Other Information That Helps Us Care for You: No Feels Safe at Home: Yes Safety Concerns: Feels Safe At This Time Childhood Exposure to Second-Hand Smoke: Yes Diet: regular caffeine: Yes Dental Care, Regularly: No Physical Activity Frequency: Daily Seatbelt Use: sometimes Sunscreen Use: Yes Assistive Devices: Glasses Review of Systems Review of Systems: See HPI above Physical Exam Physical Exam: General: no acute distress; anxious; non-toxic appearing; well-nourished; cooperative; SpO2 95% on RA HEENT: normocephalic, atraumatic; no scleral icterus; PERRLA w/ EOMs intact; moist mucus membrane; vision and hearing grossly intact Neck: supple; no lymphadenopathy; trachea midline Skin: warm, dry without signs of tenting; no cyanosis; no rashes, bruising, lesions, or erythema noted CV: chest wall NTP; RR, bradycardic around 47 bpm; S1/S2 normal; no murmurs/rubs/gallops; pulses intact and symmetric at radial, DP, and PT Lungs: no acute respiratory distress; symmetrical chest wall expansion; clear breath sounds across all lung luther w/o adventitious sounds; no wheezing ABD: Soft, NTP; BS present; no rebound/guarding; no distention MSK: no tics or fasciculations; no edema noted in the LEs b/l, nonerythematous Neuro: A&Ox3; normal mood and affect; fluent speech; no focal deficits; sensation grossly intact in the LEs b/l Results & Data Results & Data Vital Signs (Past 12 Hours) Vital Signs Temp Pulse Resp BP Pulse Ox O2 Del Method 01/29/24 17:00 140/82 01/29/24 17:00 47 L 12 95 01/29/24 16:30 141/79 H 01/29/24 16:30 47 L 14 96 01/29/24 16:00 46 L 13 95 01/29/24 16:00 136/73 01/29/24 16:00 46 L 01/29/24 15:51 46 L 12 96 01/29/24 15:51 136/78 01/29/24 15:48 94 01/29/24 15:30 116/72 01/29/24 15:28 51 L 9 L 96 01/29/24 15:00 46 L 17 92 01/29/24 15:00 126/73 01/29/24 14:30 122/69 01/29/24 14:30 49 L 16 95 01/29/24 14:00 48 L 18 96 01/29/24 14:00 122/74 01/29/24 13:30 117/65 01/29/24 13:30 47 L 16 96 Room Air 01/29/24 13:00 115/74 01/29/24 13:00 47 L 17 97 01/29/24 12:54 127/77 01/29/24 12:54 49 L 15 98 01/29/24 12:52 49 L 12 97 01/29/24 12:52 114/63 01/29/24 12:52 123/70 01/29/24 12:30 46 L 16 96 01/29/24 12:30 122/70 01/29/24 12:23 46 L 01/29/24 12:00 48 L 13 95 01/29/24 12:00 120/75 01/29/24 11:30 47 L 15 93 01/29/24 11:30 117/63 01/29/24 11:13 51 L 21 91 01/29/24 11:10 Room Air 01/29/24 11:10 47 L 16 95 Room Air 01/29/24 11:10 36.9 C 52 L 18 113/69 93 Room Air Laboratory Results Abnormal lab results 01/29/24 Range/Units 11:13 WBC 14.69 H (4.8-10.8) K/ul Neut # (Auto) 10.29 H (1.40-6.50) K/uL Page # (Auto) 0.83 H (0.11-0.59) K/uL PT 12.4 H (9.0-12.0) Seconds Glucose 116 H (70-99(Fasting)) mg/dl Diagnostic Findings Chest X-Ray 01/29/24 11:06 XR chest 1V portable HISTORY: Chest pain, nonspecific COMPARISON: Chest 06/15/2023. FINDINGS: No pneumothorax. No pleural effusions. The cardiac silhouette is normal in size. No focal lung consolidations to suggest a pneumonia. No evidence for pulmonary edema. Mild elevation the right hemidiaphragm, unchanged. There is an old, healed posterior left third rib fracture. No acute fractures. IMPRESSION: No acute process. ACT 112: Negative or not required by law. Electronically signed by: Barry Pope M.D. 01/29/2024 11:54 AM Chest CTA 01/29/24 14:37 CT angio chest PE protocol CT DOSE: 948.87 mGy.cm HISTORY: 53 years-old Male with PE. Acute shortness of breath TECHNIQUE: Multiple CTA images of the chest were obtained after the intravenous administration of 119 ml Optiray. Coronal and sagittal MIPS were obtained from the axial data set and were submitted for review. All measurements were obtained according to NASCET criteria. A dose lowering technique was utilized adhering to the principles of ALARA. COMPARISON: Chest radiograph of same day, chest CT 10/13/2023 FINDINGS: CTA: Heart is normal in size without pericardial effusion. Moderate coronary artery calcifications. No thoracic aortic aneurysm. No pulmonary emboli identified. The segmental and subsegmental branches are not well seen secondary to respiratory motion. CT CHEST: Unremarkable thyroid. No lymphadenopathy. No pneumothorax, pleural effusion or overt pulmonary edema. Mild pulmonary emphysema with bibasilar subsegmental atelectasis. Several scattered low suspicion solid pulmonary nodules are redemonstrated and appear stable from prior measuring up to 5 mm in the right lower lobe on image 78. No new or enlarging pulmonary nodules identified. The central airways are patent. Mild tracheobronchial secretions. No acute upper abdominal abnormality. Mild nonspecific bilateral perinephric stranding. Gynecomastia. No acute fracture. Benign appearing 1.0 lucent lesion of the anterolateral left 4th rib. IMPRESSION: Unremarkable CTA of the chest. No pulmonary emboli identified. ACT 112: Negative or not required by law. The above report was generated using voice recognition software. It may contain grammatical, syntax or spelling errors. Electronically signed by: Richard Naranjo M.D. 01/29/2024 4:04 PM Code Status & VTE Plan Code Status Full code VTE Prophylaxis Plan VTE Prophylaxis will be ordered: Yes Supervising Physician Co-Signing Physician Notes I personally saw and examined the patient. I independently reviewed the labs, EKG, imaging, problem list, medication list, past medical history and family history. I verified all munoz points and agree with Barry Hong PA-C with the following exceptions and/or additions: 53 year old male presents to the ER with chest pain. Now resolved. Suspected to be occurring in setting of a. fib RVR. O/E HS decreased rate, regular rhythm, no murmurs, Chest CTAB, Abdo SNT, right calf > left calf (notably improving over last 2 weeks and complaint with Xarelto) A/P Paroxysmal atrial fibrillation with RVR - currently back in NSR. Suspect recently exacerbations due to recent GI illness. Today much worse just because he missed his morning medications. His was concerned feeling like he may need a change in medications. 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 This plan appears unlikely given current episodes. Plan to observe overnight if he has further episodes certainly warrants change in treatment. Will defer switch anti- arryhtmic to cardiology tomorrow. Chest pain - normal troponins essential rule out GA. Suspected secondary to s. fib RVR although notably no EKG taken while he is in this. Leucocytosis - on review of prior hospitalization he appears to have a stress reaction leucocytosis to a. fib episodes therefore not particularly concerning, repeat with AM labs Right calf swelling - s/p trauma2 weeks ago, on Xarelto regardless and improving therefore no need for US venous doppler, no cellulitis PG Care Time/CCT Total # of Minutes Spent Total Time Spent with Patient: Total time spent is greater than 50% in coordination of care (as documented) at patient's floor/unit and/or counseling patient: Coding [place] [id number] INT INP/OBS CARE 3/75MIN Patient Type Established Medical Decision Making High Complexity Diagnoses Left-sided chest pain R07.9 Paroxysmal atrial fibrillation I48.0 Leukocytosis D72.829 Type 2 diabetes mellitus without complication, without long-term current use of insulin E11.9 Diabetes mellitus complication status: without complication 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
[2024-01-29] MEDS ORDERED: DEXTROSE 50% 50 ML SYRINGE IV PRN (19:32)
[2024-01-29] MEDS ORDERED: GLUCOSE 10 TAB/TUBE PO PRN (19:32)
[2024-01-29] MEDS ORDERED: GLUCOSE 40% GEL 15 GM TUBE PO PRN (19:32)
[2024-01-29] MEDS ORDERED: ACETAMINOPHEN 325 MG TAB PO PRN (19:32)
[2024-01-29] MEDS ORDERED: ONDANSETRON INJ 2 MG/ML 2 ML VIAL IV PRN (19:32)
[2024-01-29] MEDS ORDERED: GLUCAGON FOR INJ 1 MG VIAL SQ PRN (19:32)
[2024-01-29] MEDS ORDERED: CARBOHYDRATES FOR HYPOGLYCEMIA PO PRN (19:32)
[2024-01-29] MEDS: RIVAROXABAN 20 MG TAB PO SCH (20:10)
[2024-01-29] MEDS: DULoxetine HCL 60 MG CAP PO SCH (20:11)
[2024-01-29] MEDS: INSULIN ASPART PER UNIT CHARGE SC SCH (20:11)
[2024-01-29] MEDS: traZODone HCL 50 MG TAB PO SCH (21:48)
[2024-01-29 22:33] LABS: C Reactive Protein < 0.50 mg/dl (0-0.5)
[2024-01-30 06:57] LABS: Basophils # (auto) 0.04 K/uL (0.00-0.20); Basophils % (auto) 0.4 %; Eosinophils # (auto) 0.17 K/uL (0.00-0.50); Eosinophils % (auto) 1.5 %; Hematocrit (blood only) 45.9 % (42.0-52.0); Hemoglobin 15.6 g/dl (14.0-18.0); Immature Granulocytes # (auto) 0.04 K/uL (0.01-0.20); Immature Granulocytes % (auto) 0.4 %; Lymphocytes # (auto) 2.55 K/uL (1.20-3.40); Lymphocytes % (auto) 22.7 %; Mean Corpuscular Hemoglobin 29.9 pg (25.0-34.0); Mean Corpuscular Volume 87.9 fL (80.0-100.0); Monocytes # (auto) 0.79 K/uL (0.11-0.59); Neutrophils # (auto) 7.63 K/uL (1.40-6.50); Platelet Count 203 K/uL (130-400); RDW Coefficient of Variation 12.7 % (11.5-14.5); RDW Standard Deviation 41.1 fL (36.4-46.3); Red Blood Count 5.22 M/uL (4.70-6.10); White Blood Count 11.22 K/ul (4.8-10.8)
[2024-01-30 07:13] LABS: BUN Creatinine Ratio 12.6 (10-20); Calcium 9.5 mg/dl (8.6-10.3); Creatinine Clr Calc Pharmacy 102.3 ml/min; Est GFR (African American) 87.4 ml/min; Est GFR (Non-African American) 75.4 ml/min; Potassium 4.5 mmol/L (3.5-5.1)
[2024-01-30 09:00] LABS: Estimated Average Glucose 148 mg/dl; Hemoglobin A1C 6.8 % (4.5-5.6)
[2024-01-30] MEDS: AMIODARONE 200 MG TAB PO SCH (09:14)
[2024-01-30] MEDS: METOPROLOL SUCC 50MG EXT REL TAB PO SCH (09:15)
--- NOTE | 2024-01-30 09:52 | Cardiology Consultation ---
Date of Consultation January 30, 2024 Assessment & Plan (1) Paroxysmal atrial fibrillation: Mr. 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 Patient was last hospitalized at [facility] in June 2023 after presenting with Atrial Flutter/Atrial Fibrillation with RVR. Dr. Duarte was consulted and performed a NADEGE and Cardioversion. He also recommended Catheter Based Ablation and referred him to [facility]. Patient was placed on short term Amiodarone as bridging therapy until the patient could have his PVI and Caval Tricuspid Isthmus Ablation. These ablations were performed on 08/23/23 and were without complications. Patient was continued on Amiodarone and was unable to make it to his follow-up visit with [facility] due to illness. Patient complains that his A-fib has been occurring with increased frequency over the past month and even more so over the past week, to the point where he is having atrial fibrillation on a daily basis. Recommend the followin. Increase Amiodarone to 300 mg daily. 2. Can reduce Metoprolol dose if bradycardia becomes an issue on higher dose Amiodarone. 3. Refer back to Electrophysiology at [facility] for another A-Fib Ablation. 4. Continue Xarelto 20 mg daily without interruption. (2) Cardiomyopathy: Like a Tachycardia Induced Cardiomyopathy LVEF 40% to 45% in June 2023. -- Rhythm control strategy. -- Continue Metoprolol Succinate ER. -- Continue Jardiance 25 mg daily. (3) Mitral regurgitation: Mild-to Moderate Mitral Regurgitation. -- Probably secondary to Cardiomyopathy. -- Keep surveillance periodically. (4) Left-sided chest pain: Patient presented with Acute Onset of Left-Sided Chest Pressure with radiation down the left arm that developed around 9:00 a.m. on 01/29/24 while he was at work, and he stated that he was walking when the pressure developed. He then noticed that the pressure radiated down his left arm, and led to numbness and tingling in the left fingertips. No radiation to the left jaw or to the back. Patient described it as a constant chest pressure, that he rated at 4/10 at its worst. The pressure lasted from 9 a.m. to 3 p.m. in total (approximately 5 to 6 hours). There were no alleviating/aggravating factors. He did note that he could feel heart palpitations similar to when he goes into atrial flutter, but noted that the chest pressure and left arm numbness were new. Also, he typically gets SOB when he develops atrial flutter, but did not feel this on the day of admission. Patient initially went to [facility] walk-in clinic where they called 911 for transport here. He was given Zofran and Aspirin, and then SL Nitroglycerin x 3 via EMS en route. Patient did not take his regular morning medications on 01/29/24. Patient has not had any recurrence of this left-sided chest pressure after his initial episode that lasted 5-6 hours His initial troponin I was 5.5 and his follow-up value was 4.9 pg/mL. This would suggest that his chest pain is noncardiac and nonischemic. -- Continue to monitor for any recurrences. -- He has multiple cardiac risk factors, treat underlying diabetes mellitus, hypertension, and dyslipidemia aggressively. (5) Coronary artery calcification: He has presumed CAD based on his cardiac risk factors and calcified coronary arteries. -- Recommend starting a moderate dosed statin and repeating fasting lipid panel in 2-3 months. -- Strongly encouraged smoking cessation. Thank you for asking us to see this patient in consultation. History of Present Illness Reason for Consultation: 1. Paroxysmal Atrial Fibrillation s/p PVI Procedure 08/23/23. 2. Paroxysmal Atrial Flutter s/p Caval Tricuspid Isthmus Ablation 08/23/23. 3. Chest Pressure. Requesting Physician: Trevon Temple MD Attending Physician: Parker Griffith MD History of Present Illness Mr. Mahajan is a 53 year old male with a history of Type 2 Diabetes Mellitus, Hyp ertension, Dyslipidemia, Moderate Coronary Artery Calcifications, Tobacco Use, Cardiomyopathy (likely Tachycardia Induced), Koav-[id number] Mitral Regurgitation, PSVT, Paroxysmal Atrial Flutter s/p Caval Tricuspid Isthmus Ablation 08/23/23, and Paroxysmal Atrial Fibrillation s/p PVI Procedure 08/23/23 who presented with Acute Onset of Left-Sided Chest Pressure with radiation down the left arm that developed around 9:00 a.m. on 01/29/24 while he was at work, and he stated that he was walking when the pressure developed. He then noticed that the pressure radiated down his left arm, and led to numbness and tingling in the left fingertips. No radiation to the left jaw or to the back. Patient described it as a constant chest pressure, that he rated at 4/10 at its worst. The pressure lasted from 9 a.m. to 3 p.m. in total (approximately 5 to 6 hours). There were no alleviating/aggravating factors. He did note that he could feel heart palpitations similar to when he goes into atrial flutter, but noted that the chest pressure and left arm numbness were new. Also, he typically gets SOB when he develops atrial flutter, but did not feel this today. No prior history of UT. Patient initially went to [facility] walk-in clinic where they called 911 for transport here. He was given Zofran and Aspirin, and then SL Nitroglycerin x 3 via EMS en route. Patient did not take his regular morning medications on 01/29/24. He does report good compliance with taking Metoprolol and Xarelto on a daily basis with the exception of the missed doses on 01/29/24. Of note, the patient did have a stomach bug/fever 1 week ago, which resolved. He did not take any additional medications for this. Patient was last hospitalized at [facility] in June 2023 after presenting with Atrial Flutter/Atrial Fibrillation with RVR. Dr. Duarte was consulted and performed a NADEGE and Cardioversion. He also recommended Catheter Based Ablation and referred him to [facility]. Patient was placed on short term Amiodarone as bridging therapy until the patient could have his PVI and Caval Tricuspid Isthmus Ablation. These ablations were performed on 08/23/23 and were without complications. Patient was continued on Amiodarone and was unable to make it to his follow-up visit with [facility] due to illness. Patient complains that his A-fib has been occurring with increased frequency over the past month and even more so over the past week, to the point where he is having atrial fibrillation on a daily basis. Patient is a current tobacco cigarette smoker of less than 1 ppd. No recent alcohol use. Allergies Allergy/AdvReac Type Severity Reaction Status Date / Time Sulfa (Sulfonamide Allergy Intermediate Hives Verified 01/29/24 10:29 Antibiotics) metformin AdvReac Diarrhea Verified 01/29/24 10:29 Home Medications Medication Instructions Recorded Confirmed Type cholecalciferol (vitamin D3) 25 2,000 units PO DAILY 06/05/19 01/29/24 History mcg (1,000 unit) tablet (Vitamin D3) vitamin A-vitamin C-vit E-min 2 tab PO DAILY 02/19/21 10/13/23 History tablet sildenafil 100 mg tablet 50 mg PO DAILY PRN sexual activity 10/11/21 01/29/24 History rivaroxaban 20 mg tablet (Xarelto) 20 mg PO QDD #30 tabs 06/19/23 01/29/24 Rx duloxetine 60 mg capsule,delayed 60 mg PO BID #60 caps 09/15/23 01/29/24 Rx release trazodone 50 mg tablet 50 mg PO HS #90 tabs 10/18/23 01/29/24 Rx glimepiride 4 mg tablet 4 mg PO DAILY #90 tabs 10/30/23 01/29/24 Rx empagliflozin 25 mg tablet 25 mg PO DAILY #30 tabs 11/21/23 01/29/24 Rx clonazepam 0.5 mg tablet 0.5 mg PO BID PRN Anxiety #60 tabs 01/08/24 01/29/24 Rx amiodarone 200 mg tablet 200 mg PO DAILY #100 tabs 01/17/24 01/29/24 Rx metoprolol succinate 50 mg 50 mg PO DAILY #100 tabs 01/17/24 01/29/24 Rx tablet,extended release 24 hr Patient History Medical History Anticoagulant long-term use now off Eliquis, monitored by Cardiology Mild concussion 12/27 Multiple rib fractures 12/27 Inguinal hernia Palpitations Fatigue GERD (gastroesophageal reflux disease) CONTROLLED Hiatal hernia Surgical History History of arthroscopy RT/LEFT KNEE Hx of vasectomy History of esophagogastroduodenoscopy (EGD) Family History Mother Family history of diabetes mellitus Grandmother Family history of diabetes mellitus Denies family history of Ovarian cancer Prostate cancer Myocardial infarction Breast cancer Colorectal cancer Social History Smoking Status: Current every day smoker Tobacco Type: Cigarettes Cigarettes Per Day: 10-12; Second Hand Exposure: No; Do You Dip or Chew Tobacco: No; Hx Alcohol Use: Yes Alcohol type: beer and wine Hx Substance Use: No Preferred Language: Norwegian Communication Ability: Effective Boarding Mother Required: No Beliefs That Will Affect Care: None marital status: Current Living Situation: Spouse current occupational status: employed How many Children do You have: 4 Feels Safe at Home: Yes Childhood Exposure to Second-Hand Smoke: Yes Diet: regular caffeine: Yes Dental Care, Regularly: No Physical Activity Frequency: Daily Seatbelt Use: sometimes Sunscreen Use: Yes Assistive Devices: None Review of Systems Review of Systems: -- He is having intermittent brief episo xavier of A-Fib beginning this morning which are coming and going spontaneously. -- Left sided chest pressure completely resolved after 5 to 6 hours, no recurrence. -- He does have a sensation of palpitati ons with his atrial arrhythmias. Physical Exam Physical Exam: Heart rate 130 bpm and irregularly irregular currently. GENERAL: Patient in no acute distress. HEENT: Head is atraumatic, normocephalic. EOM's intact. Facies symmetric. No perioral cyanosis. NECK: No JVD. JVP is not elevated. Carotid upstrokes are + 2 bilaterally without bruits. CHEST/LUNGS: Clear to auscultation throughout all lung luther. No wheezes, rales, or crackles. CVS: S1 and S2 are irregularly irregular and tachycardic without murmurs, gallops, or rubs. PMI is nonpalpable. No lifts, heaves, or thrills. No abdominal aortic or renal bruits. ABDOMINAL EXAM: Bowel sounds are present. No masses, organomegaly, or tender ness. EXTREMITIES: No clubbing or cyanosis. No edema. Intact radial pulses bilaterally. NEUROLOGIC EXAM: Patient is awake, alert, and oriented. Pleasant and cooperative. Answers questions appropriately. Speech is clear. MANAGER GARDEN: -- Beginning this morning patient's rhyt hm is predominately sinus bradycardia/normal sinus rhythm but he has intermittent A-Fib with RVR. -- One ventricular triplet. EKG 01/30/24: -- A-Fib with RVR at 133 bpm. -- Non-specific ST abnormality. -- Abnormal EKG. -- When compared to 01/29/24 tracing; A-F ib has replaced sinus rhythm, HR has increased, and ST segment depressions are now present in the anterolateral leads. Results & Data Vital Signs (Past 12 Hours) Vital Signs Temp Pulse Pulse Resp BP Pulse Ox O2 Del Method 01/30/24 07:18 37.0 C 59 L 18 143/74 H 95 Room Air 01/30/24 03:25 36.4 C L 49 L 16 130/74 92 Room Air 01/29/24 23:45 36.5 C 47 L 16 120/69 92 Room Air 01/29/24 21:55 49 L Laboratory Results Laboratory Results - last 24 hr 01/29/24 01/29/24 01/29/24 11:13 12:42 19:35 WBC 14.69 H RBC 5.30 Hgb 16.0 Hct 46.0 MCV 86.8 MCH 30.2 MCHC 34.8 RDW Std Deviation 40.0 RDW Coeff of Jenn 12.7 Plt Count 220 MPV 10.9 Immature Gran % (Auto) 0.5 Neut % (Auto) 70.0 Lymph % (Auto) 22.9 [place] % (Auto) 5.7 Eos % (Auto) 0.6 Baso % (Auto) 0.3 Neut # (Auto) 10.29 H Lymph # (Auto) 3.37 [place] # (Auto) 0.83 H Eos # (Auto) 0.09 Baso # (Auto) 0.04 Immature Gran # (Auto) 0.07 PT 12.4 H INR 1.1 Sodium 139 Potassium 4.1 Chloride 106 Carbon Dioxide 28 Anion Gap 5 BUN 14 Creatinine 0.95 Est Cr Clr Drug Dosing 121.0 Est GFR ( Amer) 105.5 Est GFR (Non-Af Amer) 91.0 BUN/Creatinine Ratio 14.7 Glucose 116 H POC Glucose 92 Estimat Average Glucose Hemoglobin A1c Calcium 9.4 Magnesium 2.0 Total Bilirubin 0.4 AST 17 ALT 22 Alkaline Phosphatase 37 Troponin I High Sens 5.5 4.9 C-Reactive Protein < 0.50 Total Protein 6.9 Albumin 4.2 Globulin 2.7 Albumin/Globulin Ratio 1.6 Lipase 32 Procalcitonin < 0.02 01/30/24 01/30/24 06:21 07:19 WBC 11.22 H RBC 5.22 Hgb 15.6 Hct 45.9 MCV 87.9 MCH 29.9 MCHC 34.0 RDW Std Deviation 41.1 RDW Coeff of Jenn 12.7 Plt Count 203 MPV 11.0 Immature Gran % (Auto) 0.4 Neut % (Auto) 68.0 Lymph % (Auto) 22.7 [place] % (Auto) 7.0 Eos % (Auto) 1.5 Baso % (Auto) 0.4 Neut # (Auto) 7.63 H Lymph # (Auto) 2.55 [place] # (Auto) 0.79 H Eos # (Auto) 0.17 Baso # (Auto) 0.04 Immature Gran # (Auto) 0.04 PT INR Sodium 140 Potassium 4.5 Chloride 106 Carbon Dioxide 29 Anion Gap 5 BUN 14 Creatinine 1.11 Est Cr Clr Drug Dosing 102.3 Est GFR ( Amer) 87.4 Est GFR (Non-Af Amer) 75.4 BUN/Creatinine Ratio 12.6 Glucose 141 H POC Glucose 144 H Estimat Average Glucose 148 Hemoglobin A1c 6.8 H Calcium 9.5 Magnesium Total Bilirubin AST ALT Alkaline Phosphatase Troponin I High Sens C-Reactive Protein Total Protein Albumin Globulin Albumin/Globulin Ratio Lipase Procalcitonin Diagnostic Findings CTA of CHEST 01/29/24:: Heart is normal in size without pericardial effusion. Moderate coronary artery calcifications. No thoracic aortic aneurysm. No pulmonary emboli identified. The segmental and subsegmental branches are not well seen secondary to respiratory motion. CT CHEST: Unremarkable thyroid. No lymphadenopathy. No pneumothorax, pleural effusion or overt pulmonary edema. Mild pulmonary emphysema with bibasilar subsegmental atelectasis. Several scattered low suspicion solid pulmonary nodules are redemonstrated and appear stable from prior measuring up to 5 mm in the right lower lobe on image 78. No new or enlarging pulmonary nodules identified. The central airways are patent. Mild tracheobronchial secretions. No acute upper abdominal abnormality. Mild nonspecific bilateral perinephric stranding. Gynecomastia. No acute fracture. Benign appearing 1.0 lucent lesion of the anterolateral left 4th rib. IMPRESSION: Unremarkable CTA of the chest. No pulmonary emboli identified. CXR 01/29/24: FINDINGS: No pneumothorax. No pleural effusions. The cardiac silhouette is normal in size. No focal lung consolidations to suggest a pneumonia. No evidence for pulmonary edema. Mild elevation the right hemidiaphragm, unchanged. There is an old, healed posterior left third rib fracture. No acute fractures. IMPRESSION: No acute process. Medications Administered Medication List Amiodarone HCl (Amiodarone 200 Mg Tab) 200 mg PO DAILY KATY Stop: 02/29/24 08:59 Last Admin: 01/30/24 09:14 Dose: 200 mg Documented By: SHAQUILLE Duloxetine HCl (Duloxetine Hcl 60 Mg Cap) 60 mg PO BID KATY Stop: 02/28/24 20:59 Last Admin: 01/30/24 09:14 Dose: 60 mg Documented By: Admin: 01/29/24 20:11 Dose: 60 mg Documented By: AMARJIT Insulin Aspart (Insulin Aspart Per Unit Charge) 0 units SC ACHS KATY Stop: 02/28/24 20:59 Last Admin: 01/30/24 09:14 Dose: 4 units Documented By: SHAQUILLE Co-signed By: NOAH Admin: 01/29/24 20:11 Dose: 9 units Documented By: AMARJIT Co-signed By: ERIKA Metoprolol Succinate (Metoprolol Succ 50mg Ext Rel Tab) 50 mg PO DAILY KATY Stop: 02/29/24 08:59 Last Admin: 01/30/24 09:15 Dose: 50 mg Documented By: SHAQUILLE Rivaroxaban (Rivaroxaban 20 Mg Tab) 20 mg PO QDD KATY Stop: 02/28/24 19:59 Last Admin: 01/29/24 20:10 Dose: 20 mg Documented By: AMARJIT Trazodone HCl (Trazodone Hcl 50 Mg Tab) 50 mg PO HS KATY Stop: 02/28/24 20:59 Last Admin: 01/29/24 21:48 Dose: 50 mg Documented By: AMARJIT Discontinued Medications Ioversol (Optiray 320 125ml) 119 ml IV ONCE ONE Stop: 01/29/24 15:42 Last Admin: 01/29/24 15:41 Dose: 119 ml Documented By: PARRIS PG Care Time/CCT Total # of Minutes Spent Total Time Spent with Patient: Total time spent is greater than 50% in coordination of care (as documented) at patient's floor/unit and/or counseling patient:55 C[place] [address] IN/OBS CONSULT LVL 4,60M Patient Type Established History Detailed Exam Detailed Medical Decision Making Moderate Complexity Diagnoses Paroxysmal atrial fibrillation I48.0 Cardiomyopathy, unspecified type I42.9 Cardiomyopathy type: unspecified Nonrheumatic mitral valve regurgitation I34.0 Cardiac valve disease etiology: nonrheumatic Left-sided chest pain R07.9 Coronary artery calcification I25.10; I25.84 Time Spent (min) 68 (2) Cardiomyopathy Cardiomyopathy type: unspecified Qualified Code(s): I42.9 - Cardiomyopathy, unspecified (3) Mitral regurgitation Cardiac valve disease etiology: nonrheumatic Qualified Code(s): I34.0 - Nonrheumatic mitral (valve) insufficiency
[2024-01-30] MEDS: AMIODARONE 200 MG TAB PO ONE (11:05)
[2024-01-30] MEDS: PANTOprazole 40 MG TAB PO SCH (11:05)
--- NOTE | 2024-01-30 11:56 | Hospitalist Progress Note ---
Date of Service January 30, 2024 Assessment & Plan (1) Left-sided chest pain: Plan: Chest pain is now resolved. Could have been due to paroxysmal atrial fibrillation, patient says he feels it more whenever he feels palpitations CTA did not show any evidence of acute pulmonary embolism. Has been evaluated by cardiology and I think it is musculoskeletal. No significant elevation in troponin. (2) Paroxysmal atrial fibrillation: Plan: Patient reports he can tell when he goes in atrial fibrillation with RVR as he develops chest palpitations and SOB Patient had an ablation in September 2023 for his atrial flutter Patient's reports that, this past week, he has been going into A-fib with increased frequency to the point where it almost a daily occurrence Continue Xarelto, metoprolol, increase amiodarone to 300 mg Cardiology consulted Patient still relatively bradycardic, will monitor overnight we may need to reduce the dose of metoprolol Upon discharge, outpatient follow-up with tank tester at [facility] (3) Leukocytosis: Plan: No evidence of infection, patient has been afebrile could have been due to stress. (4) Diabetes: Plan: Last A1c at 6.6% on 10/10/2023 Hold glimepiride, empagliflozin SSI; with target BSG range 110-140mg/dL, CF 40, carb ratio 13 T2DM diet BSG ACHS Adjust regimen as needed AM A1c (5) Smoker: Plan: Current everyday tobacco cigarette smoker; <1PPD Nicotine patch as needed Plan Disposition: Monitor overnight given the recent increase in dose of amiodarone Full code AHA, T2DM diet VTE PPx: On Xarelto Admission and Anticipated Discharge Date Admission Date: January 29, 2024 Subjective Patient seen and examined, said that his chest pain has resolved however he still feels occasional palpitations Review of Systems Review of Systems: All systems reviewed are negative, apart from the ones contained in the history. Physical Exam Physical Exam: The patient is awake, alert and oriented 3, well developed and well nourished, normocephalic and atraumatic, lying in bed and in no acute distress. HEENT--PERRL, EOMI, mucous membranes and oropharynx mildly dry Neck--supple. No JVD. No bruits. Thyroid normal, trachea midline, no adenopathy. Heart--normal S1 and S2. No murmurs, rubs or gallops. Lungs--clear bilaterally, no respiratory distress, no accessory muscle use. Abdomen--normal bowel sounds and soft. Extremities--no cyanosis or clubbing. No edema. Dermatologic--normal skin turgor, normal color, no abnormal lymph nodes, no rash. Neurologic--cranial nerves II through XII grossly intact. Rheumatologic--normal range of motion. Psychiatric--normal affect. Results & Data Results & Data Vital Signs (Past 12 Hours) Vital Signs Temp Pulse Resp BP Pulse Ox O2 Del Method 01/30/24 07:18 98.6 F 59 L 18 143/74 H 95 Room Air 01/30/24 03:25 97.5 F L 49 L 16 130/74 92 Room Air PG Care Time/CCT Total # of Minutes Spent Total Time Spent with Patient: Total time spent is greater than 50% in coordination of care (as documented) at patient's floor/unit and/or counseling patient: Coding Level of Care Code 50934 SUB INP/OBS CARE 2/35MIN Diagnoses Left-sided chest pain R07.9 Paroxysmal atrial fibrillation I48.0 Leukocytosis D72.829 Type 2 diabetes mellitus without complication, without long-term current use of insulin E11.9 Diabetes mellitus type: type 2 Diabetes mellitus ferry terminal supervisor insulin use: without ferry terminal supervisor use Diabetes mellitus complication status: without complication Smoker F17.200 Time Spent (min) 35 (4) Diabetes Diabetes mellitus type: type 2 Diabetes mellitus ferry terminal supervisor insulin use: without detention use Diabetes mellitus complication status: without complication Qualified Code(s): E11.9 - Type 2 diabetes mellitus without complications
--- NOTE | 2024-01-30 12:39 | Electrocardiogram Report ---
Test Reason : Blood Pressure : / mmHG Vent. Rate : 051 BPM Atrial Rate : 051 BPM P-R Int : 176 ms QRS Dur : 098 ms QT Int : 498 ms P-R-T Axes : 034 062 052 degrees QTc Int : 458 ms Sinus bradycardia Otherwise normal ECG When compared with ECG of 19-JUN-2023 07:54, No significant change was found Confirmed by Parker Griffith ([id number]) on 01/30/2024 12:38:51 PM Referred By: REFERRED SELF Confirmed By:Parker Griffith
--- NOTE | 2024-01-30 13:14 | Electrocardiogram Report ---
Test Reason : Blood Pressure : / mmHG Vent. Rate : 133 BPM Atrial Rate : 277 BPM P-R Int : 000 ms QRS Dur : 090 ms QT Int : 362 ms P-R-T Axes : 000 069 032 degrees QTc Int : 538 ms Atrial fibrillation with rapid ventricular response Nonspecific ST abnormality Abnormal ECG When compared with ECG of 29-JAN-2024 11:09, (unconfirmed) Atrial fibrillation has replaced Sinus rhythm Vent. rate has increased BY [address] now depressed in Anterolateral leads Confirmed by Parker Griffith ([id number]) on 01/30/2024 1:14:00 PM Referred By: REFERRED SELF Confirmed By:Parker Griffith
[2024-01-31 06:56] LABS: Basophils # (auto) 0.04 K/uL (0.00-0.20); Basophils % (auto) 0.4 %; Eosinophils # (auto) 0.11 K/uL (0.00-0.50); Hematocrit (blood only) 46.6 % (42.0-52.0); Immature Granulocytes # (auto) 0.06 K/uL (0.01-0.20); Immature Granulocytes % (auto) 0.5 %; Lymphocytes # (auto) 2.44 K/uL (1.20-3.40); Lymphocytes % (auto) 21.9 %; Mean Corpuscular Hemoglobin 30.2 pg (25.0-34.0); Mean Corpuscular Hgb Conc 34.3 g/dL (32.0-36.0); Mean Corpuscular Volume 87.9 fL (80.0-100.0); Mean Platelet Volume 10.6 fL (9.4-12.4); Monocytes % (auto) 6.3 %; Neutrophils % (auto) 69.9 %; Platelet Count 204 K/uL (130-400); RDW Coefficient of Variation 12.7 % (11.5-14.5); RDW Standard Deviation 40.5 fL (36.4-46.3); White Blood Count 11.15 K/ul (4.8-10.8)
[2024-01-31 07:30] LABS: BUN Creatinine Ratio 16.2 (10-20); Calcium 9.8 mg/dl (8.6-10.3); Est GFR (African American) 87.4 ml/min; Est GFR (Non-African American) 75.4 ml/min; Potassium 4.7 mmol/L (3.5-5.1)
[2024-01-31] MEDS: AMIODARONE 200 MG TAB PO SCH (09:03)
[2024-01-31] MEDS: clonazePAM 0.5 MG TAB PO PRN (09:04)
--- NOTE | 2024-01-31 10:00 | Cardiology Progress Note ---
Date of Service January 31, 2024 Assessment & Plan (1) Paroxysmal atrial fibrillation: Plan: Mr. Mahajan is a 53 year old male with a history of Type 2 Diabetes Mellitus, Hypertension, Dyslipidemia, Moderate Coronary Artery Calcifications, Tobacco Use, Cardiomyopathy (likely Tachycardia Induced), [id number] Mitral Regurgitation, PSVT, Paroxysmal Atrial Flutter s/p Caval Tricuspid Isthmus Ablation 08/23/23, and Paroxysmal Atrial Fibrillation s/p PVI Procedure 08/23/23 who presented with left sided chest pressure and now is having intermittent episodes of A-Fib with RVR. Patient was last hospitalized at [facility] in June 2023 after presenting with Atrial Flutter/Atrial Fibrillation with RVR. Dr. Duarte was consulted and performed a NADEGE and Cardioversion. He also recommended Catheter Based Ablation and referred him to [facility]. Patient was placed on short term Amiodarone as bridging therapy until the patient could have his PVI and Caval Tricuspid Isthmus Ablation. These ablations were performed on 08/23/23 and were without complications. Patient was continued on Amiodarone and was unable to make it to his follow-up visit with [facility] due to illness. Patient complains that his A-fib has been occurring with increased frequency over the past month and even more so over the past week, to the point where he is having atrial fibrillation on a daily basis. Recommend the followin. Increase Amiodarone to 300 mg daily. 2. Agree with reducing Metoprolol dose due to bradycardia. 3. Refer back to Electrophysiology at [facility] for another A-Fib Ablation. 4. Continue Xarelto 20 mg daily without interruption. (2) Cardiomyopathy: Plan: Like a Tachycardia Induced Cardiomyopathy LVEF 40% to 45% in June 2023. -- Rhythm control strategy. -- Continue Metoprolol Succinate ER. -- Continue Jardiance 25 mg daily. (3) Mitral regurgitation: Plan: Mild-to Moderate Mitral Regurgitation. -- Probably secondary to Cardiomyopathy. -- Keep surveillance periodically. (4) Left-sided chest pain: Plan: Patient presented with Acute Onset of Left-Sided Chest Pressure with radiation down the left arm that developed around 9:00 a.m. on 01/29/24 while he was at work, and he stated that he was walking when the pressure developed. He then noticed that the pressure radiated down his left arm, and led to numbness and tingling in the left fingertips. No radiation to the left jaw or to the back. Patient described it as a constant chest pressure, that he rated at 4/10 at its worst. The pressure lasted from 9 a.m. to 3 p.m. in total (approximately 5 to 6 hours). There were no alleviating/aggravating factors. He did note that he could feel heart palpitations similar to when he goes into atrial flutter, but noted that the chest pressure and left arm numbness were new. Also, he typically gets SOB when he develops atrial flutter, but did not feel this on the day of admission. Patient initially went to [facility] walk-in clinic where they called 911 for transport here. He was given Zofran and Aspirin, and then SL Nitroglycerin x 3 via EMS en route. Patient did not take his regular morning medications on 01/29/24. Patient has not had any recurrence of this left-sided chest pressure after his initial episode that lasted 5-6 hours His initial troponin I was 5.5 and his follow-up value was 4.9 pg/mL. This would suggest that his chest pain is noncardiac and nonischemic. -- Continue to monitor for any recurrences. -- He has multiple cardiac risk factors, treat underlying diabetes mellitus, hypertension, and dyslipidemia aggressively. (5) Coronary artery calcification: Plan: He has presumed CAD based on his cardiac risk factors and calcified coronary arteries. -- Recommend starting a moderate dosed statin and repeating fasting lipid panel in 2-3 months. -- Consider starting Aspirin 81 mg daily for primary prevention. -- Strongly encouraged smoking cessation. Thank you for asking us to see this patient in consultation. Admission and Anticipated Discharge Date Admission Date: January 29, 2024 Subjective Mr. Mahajan is doing better overall, the vast majority of time he is in sinus bradycardia and normal sinus rhythm -- although he is still having brief episodes of A-Fib with RVR. These A-Fib episodes appear to last for a few seconds and then resolve spontaneously. He is now on Amiodarone 300 mg daily and Metoprolol Succinate ER 50 mg daily along with Xarelto 20 mg daily. Amiodarone is being used temporarily as a bridge until he has a repeat A-Fib ablation. Review of Systems Review of Systems: 10 point ROS is completed and is negativ e with the exception of what is mentioned in the HPI. Physical Exam Physical Exam: Heart rate 54 bpm and regular. GENERAL: Patient in no acute distress. HEENT: Head is atraumatic, normocephalic. EOM's intact. Facies symmetric. No perioral cyanosis. NECK: No JVD. JVP is not elevated. Carotid upstrokes are + 2 bilaterally without bruits. CHEST/LUNGS: Clear to auscultation throughout all lung luther. No wheezes, rales, or crackles. CVS: S1 and S2 are regular, bradycardic without murmurs, gallops, or rubs. PMI is nonpalpable. No lifts, heaves, or thrills. No abdominal aortic or renal bruits. ABDOMINAL EXAM: Bowel sounds are present. No masses, organomegaly, or tenderness. EXTREMITIES: No clubbing or cyanosis. No edema. Intact radial pulses bilaterally. NEUROLOGIC EXAM: Patient is awake, alert, and oriented. Pleasant and cooperative. Answers questions appropriately. Speech is clear. 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 Results & Data Vital Signs (Past 12 Hours) Vital Signs Temp Pulse Pulse Resp BP Pulse Ox O2 Del Method 01/31/24 07:39 56 L 01/31/24 07:37 36.6 C 54 L 20 121/70 93 Room Air 01/31/24 03:00 36.4 C L 50 L 16 133/79 94 Room Air 01/30/24 22:40 36.8 C 51 L 17 105/42 L 94 Room Air 01/30/24 22:00 51 L Laboratory Results Laboratory Results - last 24 hr 01/30/24 01/30/24 01/30/24 11:19 16:15 20:13 WBC RBC Hgb Hct MCV MCH MCHC RDW Std Deviation RDW Coeff of Jenn Plt Count MPV Immature Gran % (Auto) Neut % (Auto) Lymph % (Auto) [place] % (Auto) Eos % (Auto) Baso % (Auto) Neut # (Auto) Lymph # (Auto) [place] # (Auto) Eos # (Auto) Baso # (Auto) Immature Gran # (Auto) Sodium Potassium Chloride Carbon Dioxide Anion Gap BUN Creatinine Est Cr Clr Drug Dosing Est GFR ( Amer) Est GFR (Non-Af Amer) BUN/Creatinine Ratio Glucose POC Glucose 120 H 135 H 118 H Calcium 01/31/24 01/31/24 06:32 07:11 WBC 11.15 H RBC 5.30 Hgb 16.0 Hct 46.6 MCV 87.9 MCH 30.2 MCHC 34.3 RDW Std Deviation 40.5 RDW Coeff of Jenn 12.7 Plt Count 204 MPV 10.6 Immature Gran % (Auto) 0.5 Neut % (Auto) 69.9 Lymph % (Auto) 21.9 [place] % (Auto) 6.3 Eos % (Auto) 1.0 Baso % (Auto) 0.4 Neut # (Auto) 7.80 H Lymph # (Auto) 2.44 [place] # (Auto) 0.70 H Eos # (Auto) 0.11 Baso # (Auto) 0.04 Immature Gran # (Auto) 0.06 Sodium 139 Potassium 4.7 Chloride 105 Carbon Dioxide 28 Anion Gap 6 BUN 18 Creatinine 1.11 Est Cr Clr Drug Dosing 102.0 Est GFR ( Amer) 87.4 Est GFR (Non-Af Amer) 75.4 BUN/Creatinine Ratio 16.2 Glucose 145 H POC Glucose 173 H Calcium 9.8 Medications Administered Medication List Amiodarone HCl (Amiodarone 200 Mg Tab) 300 mg PO DAILY [facility] Stop: 03/01/24 08:59 Last Admin: 01/31/24 09:03 Dose: 300 mg Documented By: SHAQUILLE Clonazepam (Clonazepam 0.5 Mg Tab) 0.5 mg PO BID PRN PRN Reason: Anxiety Stop: 02/28/24 19:31 Last Admin: 01/31/24 09:04 Dose: 0.5 mg Documented By: SHAQUILLE Duloxetine HCl (Duloxetine Hcl 60 Mg Cap) 60 mg PO BID KATY Stop: 02/28/24 20:59 Last Admin: 01/31/24 09:04 Dose: 60 mg Documented By: Admin: 01/30/24 20:13 Dose: 60 mg Documented By: Admin: 01/30/24 09:14 Dose: 60 mg Documented By: Admin: 01/29/24 20:11 Dose: 60 mg Documented By: AMARJIT Insulin Aspart (Insulin Aspart Per Unit Charge) 0 units SC ACHS KATY Stop: 02/28/24 20:59 Last Admin: 01/31/24 09:02 Dose: 3 units Documented By: SHAQUILLE Co-signed By: NOAH Admin: 01/30/24 20:14 Dose: Not Given Documented By: Admin: 01/30/24 17:07 Dose: 3 units Documented By: SHAQUILLE Co-signed By: KTS Admin: 01/30/24 12:58 Dose: 2 units Documented By: SHAQUILLE Co-signed By: LALA Admin: 01/30/24 09:14 Dose: 4 units Documented By: SHAQUILLE Co-signed By: NOAH Admin: 01/29/24 20:11 Dose: 9 units Documented By: AMARJIT Co-signed By: ERIKA Pantoprazole Sodium (Pantoprazole 40 Mg Tab) 40 mg PO QAM [facility] Stop: 02/29/24 10:29 Last Admin: 01/31/24 09:04 Dose: 40 mg Documented By: Admin: 01/30/24 11:05 Dose: 40 mg Documented By: SHAQUILLE Rivaroxaban (Rivaroxaban 20 Mg Tab) 20 mg PO QDD KATY Stop: 02/28/24 19:59 Last Admin: 01/30/24 17:07 Dose: 20 mg Documented By: Admin: 01/29/24 20:10 Dose: 20 mg Documented By: AMARJIT Trazodone HCl (Trazodone Hcl 50 Mg Tab) 50 mg PO HS [facility] Stop: 02/28/24 20:59 Last Admin: 01/30/24 20:14 Dose: 50 mg Documented By: Admin: 01/29/24 21:48 Dose: 50 mg Documented By: AMARJIT Discontinued Medications Amiodarone HCl (Amiodarone 200 Mg Tab) 200 mg PO DAILY KATY Stop: 02/29/24 08:59 Last Admin: 01/30/24 09:14 Dose: 200 mg Documented By: SHAQUILLE Amiodarone HCl (Amiodarone 200 Mg Tab) 100 mg PO NOW ONE Stop: 01/30/24 10:36 Last Admin: 01/30/24 11:05 Dose: 100 mg Documented By: SHAQUILLE Ioversol (Optiray 320 125ml) 119 ml IV ONCE ONE Stop: 01/29/24 15:42 Last Admin: 01/29/24 15:41 Dose: 119 ml Documented By: PARRIS Metoprolol Succinate (Metoprolol Succ 50mg Ext Rel Tab) 50 mg PO DAILY KATY Stop: 02/29/24 08:59 Last Admin: 01/30/24 09:15 Dose: 50 mg Documented By: SHAQUILLE PG Care Time/CCT Total # of Minutes Spent Total Time Spent with Patient: Total time spent is greater than 50% in coordination of care (as documented) at patient's floor/unit and/or counseling patient:39 [place] [address] SUB INP/OBS CARE 3/50MIN Patient Type Established History Detailed Exam Detailed Medical Decision Making High Complexity Diagnoses Paroxysmal atrial fibrillation I48.0 Cardiomyopathy, unspecified type I42.9 Cardiomyopathy type: unspecified Nonrheumatic mitral valve regurgitation I34.0 Cardiac valve disease etiology: nonrheumatic Left-sided chest pain R07.9 Coronary artery calcification I25.10; I25.84 Time Spent (min) 54 (2) Cardiomyopathy Cardiomyopathy type: unspecified Qualified Code(s): I42.9 - Cardiomyopathy, unspecified (3) Mitral regurgitation Cardiac valve disease etiology: nonrheumatic Qualified Code(s): I34.0 - Nonrheumatic mitral (valve) insufficiency
--- NOTE | 2024-01-31 12:00 | Hospitalist Progress Note ---
Date of Service January 31, 2024 Assessment & Plan (1) Left-sided chest pain: Plan: Chest pain is now resolved. Could have been due to paroxysmal atrial fibrillation, CTA did not show any evidence of acute pulmonary embolism. (2) Paroxysmal atrial fibrillation: Plan: Patient reports he can tell when he goes in atrial fibrillation with RVR as he develops chest palpitations and SOB Patient had an ablation in September 2023 for his atrial flutter Patient's reports that, this past week, he has been going into A-fib with increased frequency to the point where it almost a daily occurrence Continue Xarelto, metoprolol, increase amiodarone to 300 mg, reduce metoprolol to 25 mg from 50mg daily due to relative bradycardia Cardiology consulted Upon discharge, outpatient follow-up with instrument repairer at [place] (3) Leukocytosis: Plan: No evidence of infection, patient has been afebrile could have been due to stress. (4) Diabetes: Plan: Last A1c at 6.6% on 10/10/2023 Hold glimepiride, empagliflozin SSI; with target BSG range 110-140mg/dL, CF 40, carb ratio 13 T2DM diet BSG ACHS Adjust regimen as needed AM A1c (5) Smoker: Plan: Current everyday tobacco cigarette smoker; <1PPD Nicotine patch as needed Plan Disposition: Monitor overnight given the recent increase in dose of amiodarone and decreasing dose of metoprolol Full code AHA, T2DM diet VTE PPx: On Xarelto Admission and Anticipated Discharge Date Admission Date: January 29, 2024 Subjective Patient seen and examined, chest pain has resolved, however noted that his heart rate will run around the 50s. Review of Systems Review of Systems: All systems reviewed are negative, apart from the ones contained in the history. Physical Exam Physical Exam: The patient is awake, alert and oriented 3, well developed and well nourished, normocephalic and atraumatic, lying in bed and in no acute distress. HEENT--PERRL, EOMI, mucous membranes and oropharynx mildly dry Neck--supple. No JVD. No bruits. Thyroid normal, trachea midline, no adenopathy. Heart--normal S1 and S2. No murmurs, rubs or gallops. Lungs--clear bilaterally, no respiratory distress, no accessory muscle use. Abdomen--normal bowel sounds and soft. Extremities--no cyanosis or clubbing. No edema. Dermatologic--normal skin turgor, normal color, no abnormal lymph nodes, no rash. Neurologic--cranial nerves II through XII grossly intact. Rheumatologic--normal range of motion. Psychiatric--normal affect. Results & Data Results & Data Vital Signs (Past 12 Hours) Vital Signs Temp Pulse Pulse Resp BP Pulse Ox O2 Del Method 01/31/24 11:27 98.6 F 51 L 18 116/64 95 Room Air 01/31/24 07:39 56 L 01/31/24 07:37 97.9 F 54 L 20 121/70 93 Room Air 01/31/24 03:00 97.5 F L 50 L 16 133/79 94 Room Air PG Care Time/CCT Total # of Minutes Spent Total Time Spent with Patient: Total time spent is greater than 50% in coordination of care (as documented) at patient's floor/unit and/or counseling patient: Coding Level of Care Code 48634 SUB INP/OBS CARE 2/35MIN Diagnoses Left-sided chest pain R07.9 Paroxysmal atrial fibrillation I48.0 Leukocytosis D72.829 Type 2 diabetes mellitus without complication, without long-term current use of insulin E11.9 Diabetes mellitus type: type 2 Diabetes mellitus senior living insulin use: without exterminator helper use Diabetes mellitus complication status: without complication Smoker F17.200 Time Spent (min) 35 (4) Diabetes Diabetes mellitus type: type 2 Diabetes mellitus senior living insulin use: without senior living use Diabetes mellitus complication status: without complication Qualified Code(s): E11.9 - Type 2 diabetes mellitus without complications
[2024-02-01 06:32] LABS: Basophils # (auto) 0.05 K/uL (0.00-0.20); Basophils % (auto) 0.4 %; Eosinophils # (auto) 0.14 K/uL (0.00-0.50); Eosinophils % (auto) 1.1 %; Hematocrit (blood only) 47.4 % (42.0-52.0); Hemoglobin 16.2 g/dl (14.0-18.0); Immature Granulocytes # (auto) 0.05 K/uL (0.01-0.20); Immature Granulocytes % (auto) 0.4 %; Lymphocytes # (auto) 2.98 K/uL (1.20-3.40); Mean Corpuscular Hemoglobin 29.8 pg (25.0-34.0); Mean Corpuscular Hgb Conc 34.2 g/dL (32.0-36.0); Mean Corpuscular Volume 87.3 fL (80.0-100.0); Mean Platelet Volume 11.1 fL (9.4-12.4); Monocytes # (auto) 0.75 K/uL (0.11-0.59); Neutrophils # (auto) 8.46 K/uL (1.40-6.50); Neutrophils % (auto) 68.1 %; Platelet Count 193 K/uL (130-400); RDW Coefficient of Variation 12.4 % (11.5-14.5); RDW Standard Deviation 39.6 fL (36.4-46.3); Red Blood Count 5.43 M/uL (4.70-6.10); White Blood Count 12.43 K/ul (4.8-10.8)
[2024-02-01 06:56] LABS: BUN Creatinine Ratio 18.1 (10-20); Calcium 9.7 mg/dl (8.6-10.3); Creatinine Clr Calc Pharmacy 107.8 ml/min; Est GFR (African American) 93.5 ml/min; Est GFR (Non-African American) 80.7 ml/min; Potassium 4.4 mmol/L (3.5-5.1)
[2024-02-01 08:29] VITALS: RESP 18
[2024-02-01] MEDS: METOPROLOL SUCC 25MG EXT REL TAB PO SCH (09:42)
[2024-02-01 11:07] VITALS: BP 123/76; PULSE 52; TEMP 98.1; O2SAT 96
--- NOTE | 2024-02-01 11:46 | Discharge Summary ---
Date of Service February 01, 2024 Admission HPI Per Admitting Provider Bahman is a 53-year-old male with PMH of paroxysmal A-fib (on Xarelto), atrial flutter, SVT, cardiomyopathy, depression with anxiety, and cervicalgia. He presented for acute onset of left-sided chest pressure with radiation down the left arm that developed around 0900 on 01/28. Patient was at work at the time, and reports he was walking when the pressure developed. He then noticed that the pressure radiated down his left arm, and led to numbness and tingling in the left fingertips. No radiation to the left jaw or to the back. Patient described it as a constant chest pressure, that he rates 4/10 at its worst. The pressure lasted from 9 AM to 3 PM (approximately 5 to 6 hours). There were no alleviating/aggravating factors. He did note that he could feel heart palpitations similar to when he goes into atrial flutter, but notes that the chest pressure and left arm numbness were new. Also, he typically gets SOB when he develops atrial flutter, but did not feel this today. No prior history of RI. He reports that the nitro in the ambulance did not alleviate his chest pressure. He initially went to [facility] walk-in clinic and was given Zofran and aspirin, and then nitro x 3 via EMS en route. Other than that, patient reports he did not take his regular morning medications; no recent change in medications. He does report good compliance with taking metoprolol and Xarelto on a daily basis besides today. Of note, the patient did have a stomach bug/fever 1 week ago, which resolved. He did not take any additional medications for this. Patient had a cardiac ablation in September for his atrial flutter/A-fib; however he notes that his A-fib has been occurring with increased frequency over the past week, to the point where it is a daily occurrence. Patient is a current tobacco cigarette smoker; <1PPD. No recent alcohol use. Patient is bradycardic at 47 bpm at time of admission; vitals otherwise stable. ED course: ROS: Patient endorses lightheadedness, STANTON, chest palpitations, left-sided chest pain with radiation down the left arm & numbness/tingling in the left arm, nausea, and dry heaves. Patient denies fever, chills, night-sweats, body aches, dizziness, pleuritic CP, SOB, cough, vomiting, diarrhea, change in urinary/bowel habits, blood in urine/stool, burning with urination, or N/T/pain/swellings in the legs. Principal Diagnosis Chest pain Discharge Exam The patient is awake, alert and oriented 3, well developed and well nourished, normocephalic and atraumatic, lying in bed and in no acute distress. HEENT--PERRL, EOMI, mucous membranes and oropharynx mildly dry Neck--supple. No JVD. No bruits. Thyroid normal, trachea midline, no adenopathy. Heart--normal S1 and S2. No murmurs, rubs or gallops. Lungs--clear bilaterally, no respiratory distress, no accessory muscle use. Abdomen--normal bowel sounds and soft. Extremities--no cyanosis or clubbing. No edema. Dermatologic--normal skin turgor, normal color, no abnormal lymph nodes, no rash. Neurologic--cranial nerves II through XII grossly intact. Rheumatologic--normal range of motion. Psychiatric--normal affect. Discharge Data Allergies Allergy/AdvReac Type Severity Reaction Status Date / Time Sulfa (Sulfonamide Allergy Intermediate Hives Verified 01/29/24 10:29 Antibiotics) metformin AdvReac Diarrhea Verified 01/29/24 10:29 Consultations 01/29/24 16:44 ED Decision to Admit Stat 01/29/24 19:32 Consult Cardiology Routine Ordered Studies 01/29/24 14:37 CT for pulmonary embolism PE [CT angio chest PE protocol] Stat Hospital Course (1) Left-sided chest pain: Chest pain is now resolved. Could have been due to paroxysmal atrial fibrillation, CTA did not show any evidence of acute pulmonary embolism. (2) Paroxysmal atrial fibrillation: Patient reports he can tell when he goes in atrial fibrillation with RVR as he develops chest palpitations and SOB Patient had an ablation in September 2023 for his atrial flutter Patient's reports that, this past week, he has been going into A-fib with increased frequency to the point where it almost a daily occurrence Continue Xarelto, metoprolol, increase amiodarone to 300 mg, hold metoprolol until follow-up with cardiology Upon discharge, outpatient follow-up with curing machine operator at [place] (3) Leukocytosis: No evidence of infection, patient has been afebrile could have been due to stress. (4) Diabetes: Last A1c at 6.6% on 10/10/2023 Hold glimepiride, empagliflozin SSI; with target BSG range 110-140mg/dL, CF 40, carb ratio 13 T2DM diet BSG ACHS Adjust regimen as needed AM A1c (5) Smoker: Current everyday tobacco cigarette smoker; <1PPD Nicotine patch as needed Plan Disposition: discharge home Full code AHA, T2DM diet VTE PPx: On Xarelto Total Time Total Time Spent Total Time Spent (In Minutes): 35 Discharge Plan Discharge Items Patient Disposition: Home - Self-Care Reason For Visit: CHEST PAIN Discharge Diagnosis: chest pain Activity: Resume your previous activity Non-emergency contact: Primary Care Provider and [employer] Laborer Call non-emergency contact if: you have any medication questions Follow-up/Referrals: Leandra Goncalves CRNP [Primary Care Provider] - 02/12/24 10:30 am (Hosp d/c scheduled February 11 at 10:30 with Leandra Goncalves. ) Diet: Regular Addtl Attending Provider Instructions: Please make appointment to follow-up with a team member as soon as possible. Do not take your metoprolol until you see your team member. Pending Studies at Discharge: No Stand-Alone Forms: My [facility], Smoking Cessation Medications and DC Order Prescriptions: New amiodarone 200 mg Tablet 300 mg PO DAILY 30 Days Qty: 45 0RF Continued duloxetine 60 mg capsule,delayed release(DR/EC) 60 mg PO BID Qty: 60 11RF Rx Instructions: pt aware dose change trazodone 50 mg tablet 50 mg PO HS Qty: 90 3RF glimepiride 4 mg tablet 4 mg PO DAILY Qty: 90 3RF empagliflozin 25 mg tablet 25 mg PO DAILY Qty: 30 11RF clonazepam 0.5 mg tablet 0.5 mg PO BID PRN (Reason: Anxiety) Qty: 60 0RF cholecalciferol (vitamin D3) [Vitamin D3] 1,000 unit (25 mcg) tablet 2,000 units PO DAILY vitamin A-vitamin C-vit E-min Tablet 2 tab PO DAILY sildenafil 100 mg tablet 50 mg PO DAILY PRN (Reason: sexual activity) Rx Instructions: 1/2 tab daily PO daily PRN; administer 30 minutes to 4 hours before activity Xarelto 20 mg Tablet 20 mg PO QDD Qty: 30 0RF Held metoprolol succinate 50 mg tablet extended release 24 hr 50 mg PO DAILY Qty: 100 3RF Hold Instructions: Resume on 02/08/24. Discontinued amiodarone 200 mg tablet 200 mg PO DAILY Qty: 100 3RF Discharge Orders: Discharge Order (Routine); Ordered 02/01/24 Ordered By: Trevon Suero/Other Patient Handouts: Managing Type 2 Diabetes Admission Data Admit Date/Time: 01/29/24 18:00 Attending Provider: Trevon Temple Admit Provider: Rodrick Avalos Primary Care Provider: Leandra Goncalves Other Providers: Rodrick Avalos; Parker Griffith Coding Level of Care Code INP/OBS EV SAME DAY LV 2,70MIN Diagnoses Left-sided chest pain R07.9 Paroxysmal atrial fibrillation I48.0 Leukocytosis D72.829 Type 2 diabetes mellitus without complication, without long-term current use of insulin E11.9 Diabetes mellitus type: type 2 Diabetes mellitus custodial insulin use: without laboratory supervisor use Diabetes mellitus complication status: without complication Smoker F17.200 Time Spent (min) 35
== END 2024-02-01 13:34 | disposition home or self-care (01) ==
LOC: SUATTDRO → ED 11:04 → 2S 11:04 → SUATTDRO 18:00 → 2S 19:17
DX: I25.10 Atherosclerotic heart disease of native coronary artery without angina pectoris; I10 Essential (primary) hypertension; D72.829 Elevated white blood cell count, unspecified; F32.A Depression, unspecified; F17.210 Nicotine dependence, cigarettes, uncomplicated; I25.84 Coronary atherosclerosis due to calcified coronary lesion; F41.9 Anxiety disorder, unspecified; I47.10 Supraventricular tachycardia, unspecified; R07.89 Other chest pain; Z88.2 Allergy status to sulfonamides; E11.9 Type 2 diabetes mellitus without complications; Z79.899 Other long term (current) drug therapy; I42.9 Cardiomyopathy, unspecified; I48.0 Paroxysmal atrial fibrillation; I34.0 Nonrheumatic mitral (valve) insufficiency; E78.5 Hyperlipidemia, unspecified; I48.92 Unspecified atrial flutter; Z88.8 Allergy status to other drugs, medicaments and biological substances; Z79.01 Long term (current) use of anticoagulants